=== PATIENT | female | born 1935 | race Caucasian/White ===

== ENCOUNTER → 2021-04-03 08:38 | Outpatient (CLI) | payer MEDICARE, MEDICAID, SELFPAY ==
--- NOTE | 2021-04-03 08:41 | DI.RAD.S_ITS ---
PROCEDURE: XR HIP W PEL IF DONE RT 2V INDICATIONS: right hip pain TECHNIQUE: AP pelvis with lateral view(s) of the right hip(s). COMPARISON: [facility], CR, XR LUMBAR SPINE 2 OR 3 VIEWS, 03/20/2020, 10:01. FINDINGS: Bones: No fractures or dislocations. Pelvic ring appears intact. No suspicious bony lesions. Moderate-severe degenerative changes of the right hip joint. There is moderate joint space narrowing. Soft tissues: The visualized bowel gas pattern is normal. No suspicious soft tissue calcifications. Stable calcifications in the left pelvis. IMPRESSION: Right hip without acute fracture or dislocation. 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 Dictated by: Jason Gonzalez M.D. on 04/03/2021 at 12:26 Approved by: Jason Gonzalez M.D. on 04/03/2021 at 12:28
[2021-04-03 09:40] LABS: Add Manual Diff / Slide Review NO; Basophils Absolute Auto 0 /uL (0-100); Basophils Percent Auto 0.7 % (0-2); Eosinophils Absolute Auto 100 /uL (0-450); Eosinophils Percent Auto 1.2 % (2-4); Hematocrit 37.4 % (36-46); Hemoglobin 12.1 g/dL (12.0-16.0); Lymphocytes Absolute Auto 1100 /uL (1100-4500); Lymphocytes Percent Auto 21.4 % (25-40); Mean Corpuscular HGB Conc 32.4 % (30-36); Mean Corpuscular Hemoglobin 26.9 PG (26-34); Mean Corpuscular Volume 82.9 fL (80-100); Monocytes Absolute Auto 500 /uL (0-900); Monocytes Percent Auto 8.6 % (3-14); Neutrophils Absolute Auto 3600 /uL (1500-7000); Neutrophils Percent Auto 68.1 % (50-75); Platelet Count 244 X10^3/uL (150-400); Red Blood Cell Count 4.51 X10^6/uL (4.0-5.2); Red Cell Distribution Width 14.7 % (11.6-14.8); White Blood Cell Count 5.2 X10^3/uL (4.5-11.0)
[2021-04-03 10:00] LABS: Appearance Urine UA CLEAR; Bilirubin Urine UA NEGATIVE (NEGATIVE); Color Urine UA YELLOW; Glucose Urine UA TRACE g/dL (Negative); Ketones Urine UA NEGATIVE (NEGATIVE); Leukocyte Esterase Urine UA NEGATIVE (NEGATIVE); Nitrite Urine UA NEGATIVE (Negative); Occult Blood Urine UA 3+ (Negative); Protein Urine UA NEGATIVE (Negative); Specific Gravity Urine UA 1.015 (1.000-1.035); Urobilinogen Urine UA 0.2 E.U./dL (0.2)
[2021-04-03 10:07] LABS: pH Urine UA 5.5 (4.5-8.0)
[2021-04-03 10:16] LABS: Alanine Aminotransferase 19 IU/L (<35); Albumin 4.6 g/dL (3.5-5.0); Albumin Globulin Ratio 1.4 (1.0-2.8); Alkaline Phosphatase 88 U/L (38-126); Aspartate Aminotransferase 36 IU/L (14-36); BUN Creatinine Ratio 17.7 (6-22); Bilirubin Total 1.2 mg/dL (0.2-1.3); Blood Urea Nitrogen 14 mg/dL (7-17); Carbon Dioxide 32 mmol/L (22-32); Chloride 101 mmol/L (98-107); Estimated Glomerular Filt Rate > 60.0 mL/min (>60); Globulin 3.4 g/dL (1.7-4.1); Glucose 111 mg/dL (80-110); HEMOLYSIS < 15 (0-50); Potassium 4.5 mmol/L (3.4-5.1); Sodium 140 mmol/L (137-145)
[2021-04-03 10:23] LABS: Bacteria Urine Few (2-10); Culture Indicated Urine Cult Not Indicated; RBC Urine 1-5/HPF (0-5/HPF); Squamous Epithelial Cell Urine 5-10 /HPF (0-5/HPF); WBC Urine 1-5/HPF (0-5/HPF)
[2021-04-03 10:34] LABS: Vitamin D 25 Hydroxy (D3) 77.9 ng/mL (30.0-100.0)
[2021-04-03 10:49] LABS: TSH w/ Reflex to FT4 1.98 uIU/mL (0.47-4.68)
[2021-04-03 11:22] LABS: Folate 6.6 ng/mL (2.76-20.0); Vitamin B12 447 pg/mL (239-931)
== END ==
PROVIDERS: PCP Registered Nurse; Referring Provider Registered Nurse; Visit Provider Registered Nurse
DX: E55.9 Vitamin D deficiency, unspecified (principal); R32 Unspecified urinary incontinence; G62.9 Polyneuropathy, unspecified
CPT/HCPCS: 36415; 73502; 80053; 81003; 81015; 82306; 82607; 82746; 84443; 85025

== ENCOUNTER → 2021-04-04 15:23 | Outpatient (CLI) | payer MEDICARE, MEDICAID, SELFPAY | PROVIDERS: PCP Registered Nurse; Referring Provider Registered Nurse; Visit Provider Registered Nurse | DX: R32 Unspecified urinary incontinence (principal) | CPT/HCPCS: 87086 ==

== ENCOUNTER 2021-05-12 07:30 | Outpatient (RCR) | payer MEDICARE, MEDICAID, SELFPAY ==
--- NOTE | 2021-04-14 14:21 | PT.OIE ---
Current Diagnoses Pain in right hip (04/16/21) Other abnormalities of gait and mobility (04/16/21) History of falling (04/16/21) Past Medical History (Last Reviewed 03/28/21 @ 17:39 by GYPSY Mc) Balance problem Right hip pain Visit Care Team Role Provider Type GYPSY Mc Attending Provider Advanced Shim Plug Cutter Primary Care Provider Referring Provider Specialty: Medical Address: [address] [place] [address], [facility] Email: [email or web address] Physical Therapy Initial Evaluation PT-OP-A Visit Information Start: 04/14/21 07:57 Freq: Status: Active Protocol: Document 04/14/21 13:45 AMB (Rec: 04/14/21 16:07 AMB [email or web address]) Out-Patient Physical Therapy Visit Information Visit Information Visit Type Initial Evaluation Visit Start Time 13:45 Visit Stop Time 14:30 Total Visit Minutes 45 Visit Number 1 PT-OP-B Current Condition Start: 04/14/21 07:57 Freq: Status: Active Protocol: Document 04/14/21 13:50 AMB (Rec: 04/14/21 14:04 AMB [id number]) Current Condition History of Current Condition Onset Date 4 years ago Current Complaints Difficulty with balance/falls History of Current Condition Sarah reports episodes of feeling off balance associated with movement. States she has peripheral neuropathy, has been depressed for 4 years and didn't move much during that time. Feels off balance multiple times per day, worse with activity, not spinning. Tends to lose balance backwards or laterally. 3 falls in the last 6 months. Has tripped over her toes. R hip painful, L leg feels heavier- neuropathy feels subjectively worse on her left side. Treatment Goals Patient/Caregiver Goals Feel more balanced Prior Functional Status Baseline Function- ADL's Independent Baseline Function- Mobility Independent Personal Factors Other Personal Factors That May Effect R ankle fx 2013, hx depression Therapy/Recovery , hip arthritis PT-OP-E Functional Tests Start: 04/14/21 07:57 Freq: Status: Active Protocol: Document 04/14/21 16:13 AMB (Rec: 04/14/21 16:16 AMB [email or web address]) Functional Tests Dynamic Gait Index (DGI) Score 17 DGI Impairment Rating 20 to <40% Impaired (Score 15- 19) Five Times Sit to Stand Test Score 18 seconds Comments no UE PT-OP-G Mobility & Gait Start: 04/14/21 07:57 Freq: Status: Active Protocol: Document 04/14/21 16:13 AMB (Rec: 04/14/21 16:16 AMB [email or web address]) OP Gait Assessment Comments Gait Comments Sarah can veer off to the side, significantly worse with walking with horizontal head turns PT-OP-J Posture/Palpation/Skin Start: 04/14/21 07:57 Freq: Status: Active Protocol: Document 04/14/21 13:45 AMB (Rec: 04/16/21 11:54 AMB [email or web address]) Posture Evaluation Comments Posture Comments Increased thoracic kyphosis and forward head PT-OP-K Range of Motion Start: 04/14/21 07:57 Freq: Status: Active Protocol: Document 04/14/21 13:45 AMB (Rec: 04/16/21 11:54 AMB [email or web address]) Hip Goniometric Range of Motion Hip ROM Limitations Comments Limited IR and ER, good hip flexion PT-OP-M Strength Start: 04/14/21 07:57 Freq: Status: Active Protocol: Document 04/14/21 13:45 AMB (Rec: 04/16/21 11:54 AMB [email or web address]) Hip Strength Hip Manual Muscle Testing Right Flexion (L2) 4+ Good+ Extension (S1) 4+ Good+ Abduction 4+ Good+ Left Flexion (L2) 4+ Good+ Extension (S1) 4+ Good+ Abduction 4+ Good+ Knee Strength Knee Manual Muscle Testing Right Flexion (S2) 5 Normal Left Flexion (S2) 5 Normal Ankle/Foot Strength Ankle and Foot Manual Muscle Testing Right Dorsiflexion (L4) 4 Good Plantarflexion (S1) 4 Good Left Dorsiflexion (L4) 4 Good Plantarflexion (S1) 4 Good PT-OP-T Assessment and Plan Start: 04/14/21 07:57 Freq: Status: Active Protocol: Document 04/14/21 13:45 AMB (Rec: 04/16/21 12:01 AMB [email or web address]) Physical Therapy Assessment Rehab Potential Rehabilitation Potential Good Evaluation Complexity Number of Personal Factors/Comorbidities 1-2 Number of Body Systems Impaired 3 Clinical Presentation at Evaluation Evolving Goals Three Impairment Pain Short Term Goal (STG) Sarah will be independent with a HEP to improve her balance and decrease her pain. STG Duration 4 weeks Two Impairment gait Short Term Goal (STG) Sarah will ambulate for 6 minutes without LOB without AD over smooth surfaces. STG Duration 4 weeks Machined Parts Metal Sprayer Goal (LTG) Sarah will ambulate with head turns without veering. LTG Duration 6 weeks One Impairment balance Short Term Goal (STG) Sarah will improve her DGI score to 20/24 or more. STG Duration 4 weeks Assessment Summary Assessment Sarah attends physical therapy with concern over feeling off balance but not dizzy. She does have a history of 3 falls in the last 6 months. She also has R hip pain, especially with rolling over in bed and is concerned about her ability to perform a floor transfer. She had weakness and decreased proprioception at the ankle and foot, and veering and loss of balance with walking with horizontal head turns. Her DGI score and history of falls put her in a fall risk category. She will benefit from physcical therapy to improve her overall conditioning after being deconditioned for years, and decrease her fall risk. Physical Therapy Plan Frequency and Duration Frequency of Treatment 2x/Week Duration of Treatment 6 weeks Plan of Care Start Date 04/14/21 Plan of Care End Date 05/26/21 Therapeutic Interventions Therapeutic Interventions Gait Training,Home Exercise Program,Manual Therapy, Neuromuscular Re-education, Self-Care/Home Management, Therapeutic Activities, Therapeutic Exercises Next Visit Focus/Plan Next Note Type Treatment Note Next Visit Plan ankle strengthening, core stability, floor transfer training, gait training, further assess R hip's role in gait
--- NOTE | 2021-04-14 14:22 | PT.OPPOC ---
Addendum entered and electronically signed by Libra Beck, PT 04/16/21 14:22: Send POC Original Note: Physical, Occupational & Speech Therapy At [facility] Current Diagnoses Pain in right hip (04/16/21) Other abnormalities of gait and mobility (04/16/21) History of falling (04/16/21) Visit Care Team Role Provider Type GYPSY Mc Attending Provider Advanced Manager Nicu Primary Care Provider Referring Provider Specialty: Medical Address: [address] [place] [address] Email: [email or web address] Plan Of Care PT-OP-T Assessment and Plan Start: 04/14/21 07:57 Freq: Status: Active Protocol: Document 04/14/21 13:45 AMB (Rec: 04/16/21 12:01 AMB [email or web address]) Physical Therapy Assessment Rehab Potential Rehabilitation Potential Good Evaluation Complexity Number of Personal Factors/Comorbidities 1-2 Number of Body Systems Impaired 3 Clinical Presentation at Evaluation Evolving Goals Three Impairment Pain Short Term Goal (STG) Sarah will be independent with a HEP to improve her balance and decrease her pain. STG Duration 4 weeks Two Impairment gait Short Term Goal (STG) Sarah will ambulate for 6 minutes without LOB without AD over smooth surfaces. STG Duration 4 weeks Resistance Machine Welder Setter Goal (LTG) Sarah will ambulate with head turns without veering. LTG Duration 6 weeks One Impairment balance Short Term Goal (STG) Sarah will improve her DGI score to 20/24 or more. STG Duration 4 weeks Assessment Summary Assessment Sarah attends physical therapy with concern over feeling off balance but not dizzy. She does have a history of 3 falls in the last 6 months. She also has R hip pain, especially with rolling over in bed and is concerned about her ability to perform a floor transfer. She had weakness and decreased proprioception at the ankle and foot, and veering and loss of balance with walking with horizontal head turns. Her DGI score and history of falls put her in a fall risk category. She will benefit from physcical therapy to improve her overall conditioning after being deconditioned for years, and decrease her fall risk. Physical Therapy Plan Frequency and Duration Frequency of Treatment 2x/Week Duration of Treatment 6 weeks Plan of Care Start Date 04/14/21 Plan of Care End Date 05/26/21 Therapeutic Interventions Therapeutic Interventions Gait Training,Home Exercise Program,Manual Therapy, Neuromuscular Re-education, Self-Care/Home Management, Therapeutic Activities, Therapeutic Exercises Next Visit Focus/Plan Next Note Type Treatment Note Next Visit Plan ankle strengthening, core stability, floor transfer training, gait training, further assess R hip's role in gait Plan of Care Dates Plan of Care Start Date 04/14/21 Plan of Care End Date 05/26/21 Electronically Signed by: Libra Beck, PT 04/16/21 [id number] Please Sign and Return: I have reviewed this Plan of Care and certify that the skilled therapy services above are required to meet the patient?s needs. Physician Signature Date Printed Name and Credentials Clinical Instructor Signature Printed Name and Credentials
--- NOTE | 2021-04-16 14:55 | PT.OTN ---
Current Diagnoses Pain in right hip (04/16/21) Other abnormalities of gait and mobility (04/16/21) History of falling (04/16/21) Physical Therapy Treatment Note PT-OP-A Visit Information Start: 04/14/21 07:57 Freq: Status: Active Protocol: Document 04/16/21 11:15 AMB (Rec: 04/16/21 14:55 AMB [email or web address]) Out-Patient Physical Therapy Visit Information Visit Information Visit Type Treatment Note Visit Start Time 11:15 Visit Stop Time 12:00 Total Visit Minutes 45 Visit Number 2 PT-OP-B Current Condition Start: 04/14/21 07:57 Freq: Status: Active Protocol: Document 04/14/21 13:50 AMB (Rec: 04/14/21 14:04 AMB [id number]) Current Condition History of Current Condition Onset Date 4 years ago Current Complaints Difficulty with balance/falls History of Current Condition Sarah reports episodes of feeling off balance associated with movement. States she has peripheral neuropathy, has been depressed for 4 years and didn't move much during that time. Feels off balance multiple times per day, worse with activity, not spinning. Tends to lose balance backwards or laterally. 3 falls in the last 6 months. Has tripped over her toes. R hip painful, L leg feels heavier- neuropathy feels subjectively worse on her left side. Treatment Goals Patient/Caregiver Goals Feel more balanced Prior Functional Status Baseline Function- ADL's Independent Baseline Function- Mobility Independent Personal Factors Other Personal Factors That May Effect R ankle fx 2013, hx depression Therapy/Recovery , hip arthritis PT-OP-C Subjective Start: 04/14/21 07:57 Freq: Status: Active Protocol: Document 04/16/21 11:15 AMB (Rec: 04/16/21 14:55 AMB [email or web address]) OP-PT Subjective Patient Comments Patient Comments Pt was tired after her evaluation, no specific instances of being off balance since eval. PT-OP-E Functional Tests Start: 04/14/21 07:57 Freq: Status: Active Protocol: Document 04/14/21 16:13 AMB (Rec: 04/14/21 16:16 AMB [email or web address]) Functional Tests Dynamic Gait Index (DGI) Score 17 DGI Impairment Rating 20 to <40% Impaired (Score 15- 19) Five Times Sit to Stand Test Score 18 seconds Comments no UE PT-OP-G Mobility & Gait Start: 04/14/21 07:57 Freq: Status: Active Protocol: Document 04/14/21 16:13 AMB (Rec: 04/14/21 16:16 AMB [email or web address]) OP Gait Assessment Comments Gait Comments Sarah can veer off to the side, significantly worse with walking with horizontal head turns PT-OP-J Posture/Palpation/Skin Start: 04/14/21 07:57 Freq: Status: Active Protocol: Document 04/14/21 13:45 AMB (Rec: 04/16/21 11:54 AMB [email or web address]) Posture Evaluation Comments Posture Comments Increased thoracic kyphosis and forward head PT-OP-K Range of Motion Start: 04/14/21 07:57 Freq: Status: Active Protocol: Document 04/14/21 13:45 AMB (Rec: 04/16/21 11:54 AMB [email or web address]) Hip Goniometric Range of Motion Hip ROM Limitations Comments Limited IR and ER, good hip flexion PT-OP-M Strength Start: 04/14/21 07:57 Freq: Status: Active Protocol: Document 04/14/21 13:45 AMB (Rec: 04/16/21 11:54 AMB [email or web address]) Hip Strength Hip Manual Muscle Testing Right Flexion (L2) 4+ Good+ Extension (S1) 4+ Good+ Abduction 4+ Good+ Left Flexion (L2) 4+ Good+ Extension (S1) 4+ Good+ Abduction 4+ Good+ Knee Strength Knee Manual Muscle Testing Right Flexion (S2) 5 Normal Left Flexion (S2) 5 Normal Ankle/Foot Strength Ankle and Foot Manual Muscle Testing Right Dorsiflexion (L4) 4 Good Plantarflexion (S1) 4 Good Left Dorsiflexion (L4) 4 Good Plantarflexion (S1) 4 Good PT-OP-Q Treatments Start: 04/14/21 07:57 Freq: Status: Active Protocol: Document 04/16/21 11:15 AMB (Rec: 04/16/21 14:55 AMB [email or web address]) Therapeutic Exercises Sidelying Exercises clamshell Reps/Minutes 2x10 Standing Exercises 2 Standing Exercise Name sit to stand Reps/Minutes 2x5 Comments no Ues 1 Standing Exercise Name standing row t band Resistance #2 Reps/Minutes 2x10 Neuro Re-Education Treatment Balance Activities stride stance Surface firm Comments cues for weightbearing through heel and base of toes PT-OP-T Assessment and Plan Start: 04/14/21 07:57 Freq: Status: Active Protocol: Document 04/16/21 11:15 AMB (Rec: 04/16/21 14:55 AMB [email or web address]) Physical Therapy Assessment Assessment Summary Assessment Further discussed floor transfer, R hip is painful when rolling onto the left side and has limited rotation. Posture is playing a role in being off balance- pt had difficulty maintainging good posture while performing t band rows. Physical Therapy Plan Next Visit Focus/Plan Next Note Type Treatment Note Next Visit Plan ankle strengthening, core stability, floor transfer training, gait training, further assess R hip's role in gait
--- NOTE | 2021-04-23 12:00 | PT.OTN ---
Current Diagnoses Pain in right hip (04/23/21) Other abnormalities of gait and mobility (04/23/21) History of falling (04/23/21) Physical Therapy Treatment Note PT-OP-A Visit Information Start: 04/14/21 07:57 Freq: Status: Active Protocol: Document 04/23/21 07:33 AMB (Rec: 04/23/21 08:36 AMB [id number]) Out-Patient Physical Therapy Visit Information Visit Information Visit Type Treatment Note Visit Start Time 07:30 Visit Stop Time 08:15 Total Visit Minutes 45 Visit Number 3 PT-OP-B Current Condition Start: 04/14/21 07:57 Freq: Status: Active Protocol: Document 04/14/21 13:50 AMB (Rec: 04/14/21 14:04 AMB [id number]) Current Condition History of Current Condition Onset Date 4 years ago Current Complaints Difficulty with balance/falls History of Current Condition Sarah reports episodes of feeling off balance associated with movement. States she has peripheral neuropathy, has been depressed for 4 years and didn't move much during that time. Feels off balance multiple times per day, worse with activity, not spinning. Tends to lose balance backwards or laterally. 3 falls in the last 6 months. Has tripped over her toes. R hip painful, L leg feels heavier- neuropathy feels subjectively worse on her left side. Treatment Goals Patient/Caregiver Goals Feel more balanced Prior Functional Status Baseline Function- ADL's Independent Baseline Function- Mobility Independent Personal Factors Other Personal Factors That May Effect R ankle fx 2014, hx depression Therapy/Recovery , hip arthritis PT-OP-C Subjective Start: 04/14/21 07:57 Freq: Status: Active Protocol: Document 04/16/21 11:15 AMB (Rec: 04/16/21 14:55 AMB [email or web address]) OP-PT Subjective Patient Comments Patient Comments Pt was tired after her evaluation, no specific instances of being off balance since eval. PT-OP-E Functional Tests Start: 04/14/21 07:57 Freq: Status: Active Protocol: Document 04/14/21 16:13 AMB (Rec: 04/14/21 16:16 AMB [email or web address]) Functional Tests Dynamic Gait Index (DGI) Score 17 DGI Impairment Rating 20 to <40% Impaired (Score 15- 19) Five Times Sit to Stand Test Score 18 seconds Comments no UE PT-OP-G Mobility & Gait Start: 04/14/21 07:57 Freq: Status: Active Protocol: Document 04/14/21 16:13 AMB (Rec: 04/14/21 16:16 AMB [email or web address]) OP Gait Assessment Comments Gait Comments Sarah can veer off to the side, significantly worse with walking with horizontal head turns PT-OP-J Posture/Palpation/Skin Start: 04/14/21 07:57 Freq: Status: Active Protocol: Document 04/14/21 13:45 AMB (Rec: 04/16/21 11:54 AMB [email or web address]) Posture Evaluation Comments Posture Comments Increased thoracic kyphosis and forward head PT-OP-K Range of Motion Start: 04/14/21 07:57 Freq: Status: Active Protocol: Document 04/14/21 13:45 AMB (Rec: 04/16/21 11:54 AMB [email or web address]) Hip Goniometric Range of Motion Hip ROM Limitations Comments Limited IR and ER, good hip flexion PT-OP-M Strength Start: 04/14/21 07:57 Freq: Status: Active Protocol: Document 04/14/21 13:45 AMB (Rec: 04/16/21 11:54 AMB [email or web address]) Hip Strength Hip Manual Muscle Testing Right Flexion (L2) 4+ Good+ Extension (S1) 4+ Good+ Abduction 4+ Good+ Left Flexion (L2) 4+ Good+ Extension (S1) 4+ Good+ Abduction 4+ Good+ Knee Strength Knee Manual Muscle Testing Right Flexion (S2) 5 Normal Left Flexion (S2) 5 Normal Ankle/Foot Strength Ankle and Foot Manual Muscle Testing Right Dorsiflexion (L4) 4 Good Plantarflexion (S1) 4 Good Left Dorsiflexion (L4) 4 Good Plantarflexion (S1) 4 Good PT-OP-Q Treatments Start: 04/14/21 07:57 Freq: Status: Active Protocol: Document 04/23/21 07:30 AMB (Rec: 04/24/21 11:59 AMB [email or web address]) Therapeutic Exercises Sidelying Exercises clamshell Reps/Minutes 2x10 Standing Exercises 3 Standing Exercise Name hip flexor stretch Reps/Minutes 30x2 2 Standing Exercise Name sit to stand Reps/Minutes 2x5 Comments no Ues 1 Standing Exercise Name standing row t band Resistance #2 Reps/Minutes 2x10 Neuro Re-Education Treatment Balance Activities stride stance Surface firm Comments cues for weightbearing through heel and base of toes- tried to add head turns but that was too much PT-OP-T Assessment and Plan Start: 04/14/21 07:57 Freq: Status: Active Protocol: Document 04/23/21 07:30 AMB (Rec: 04/23/21 09:46 AMB [email or web address]) Physical Therapy Assessment Goals Three Impairment Pain Short Term Goal (STG) Sarah will be independent with a HEP to improve her balance and decrease her pain. STG Duration 4 weeks Two Impairment gait Short Term Goal (STG) Sarah will ambulate for 6 minutes without LOB without AD over smooth surfaces. STG Duration 4 weeks Ell Tutor Goal (LTG) Sarah will ambulate with head turns without veering. LTG Duration 6 weeks One Impairment balance Short Term Goal (STG) Sarah will improve her DGI score to 20/24 or more. STG Duration 4 weeks Assessment Summary Assessment Sarah did well with written HEP . She continues to state that the worst of the balance issues are when she is doing yardwork with her head down, bent over. Encouraged her to avoid this position and to increase her daily walking. Extensive education on exercise program today. Physical Therapy Plan Next Visit Focus/Plan Next Note Type Treatment Note Next Visit Plan ankle strengthening, core stability, floor transfer training, gait training, further assess R hip's role in gait
--- NOTE | 2021-04-25 11:42 | PT.OTN ---
Current Diagnoses Pain in right hip (04/25/21) Other abnormalities of gait and mobility (04/25/21) History of falling (04/25/21) Physical Therapy Treatment Note PT-OP-A Visit Information Start: 04/14/21 07:57 Freq: Status: Active Protocol: Document 04/25/21 09:45 AMB (Rec: 04/25/21 10:31 AMB [id number]) Out-Patient Physical Therapy Visit Information Visit Information Visit Type Treatment Note Visit Start Time 09:45 Visit Stop Time 10:30 Total Visit Minutes 45 Visit Number 4 PT-OP-B Current Condition Start: 04/14/21 07:57 Freq: Status: Active Protocol: Document 04/14/21 13:50 AMB (Rec: 04/14/21 14:04 AMB [id number]) Current Condition History of Current Condition Onset Date 4 years ago Current Complaints Difficulty with balance/falls History of Current Condition Sarah reports episodes of feeling off balance associated with movement. States she has peripheral neuropathy, has been depressed for 4 years and didn't move much during that time. Feels off balance multiple times per day, worse with activity, not spinning. Tends to lose balance backwards or laterally. 3 falls in the last 6 months. Has tripped over her toes. R hip painful, L leg feels heavier- neuropathy feels subjectively worse on her left side. Treatment Goals Patient/Caregiver Goals Feel more balanced Prior Functional Status Baseline Function- ADL's Independent Baseline Function- Mobility Independent Personal Factors Other Personal Factors That May Effect R ankle fx 2014, hx depression Therapy/Recovery , hip arthritis PT-OP-C Subjective Start: 04/14/21 07:57 Freq: Status: Active Protocol: Document 04/25/21 09:45 AMB (Rec: 04/25/21 10:31 AMB [id number]) OP-PT Subjective Patient Comments Patient Comments Pt has been doing her exercises, reports they are going fine. PT-OP-E Functional Tests Start: 04/14/21 07:57 Freq: Status: Active Protocol: Document 04/14/21 16:13 AMB (Rec: 04/14/21 16:16 AMB [email or web address]) Functional Tests Dynamic Gait Index (DGI) Score 17 DGI Impairment Rating 20 to <40% Impaired (Score 15- 19) Five Times Sit to Stand Test Score 18 seconds Comments no UE PT-OP-G Mobility & Gait Start: 04/14/21 07:57 Freq: Status: Active Protocol: Document 04/14/21 16:13 AMB (Rec: 04/14/21 16:16 AMB [email or web address]) OP Gait Assessment Comments Gait Comments Sarah can veer off to the side, significantly worse with walking with horizontal head turns PT-OP-J Posture/Palpation/Skin Start: 04/14/21 07:57 Freq: Status: Active Protocol: Document 04/14/21 13:45 AMB (Rec: 04/16/21 11:54 AMB [email or web address]) Posture Evaluation Comments Posture Comments Increased thoracic kyphosis and forward head PT-OP-K Range of Motion Start: 04/14/21 07:57 Freq: Status: Active Protocol: Document 04/14/21 13:45 AMB (Rec: 04/16/21 11:54 AMB [email or web address]) Hip Goniometric Range of Motion Hip ROM Limitations Comments Limited IR and ER, good hip flexion PT-OP-M Strength Start: 04/14/21 07:57 Freq: Status: Active Protocol: Document 04/14/21 13:45 AMB (Rec: 04/16/21 11:54 AMB [email or web address]) Hip Strength Hip Manual Muscle Testing Right Flexion (L2) 4+ Good+ Extension (S1) 4+ Good+ Abduction 4+ Good+ Left Flexion (L2) 4+ Good+ Extension (S1) 4+ Good+ Abduction 4+ Good+ Knee Strength Knee Manual Muscle Testing Right Flexion (S2) 5 Normal Left Flexion (S2) 5 Normal Ankle/Foot Strength Ankle and Foot Manual Muscle Testing Right Dorsiflexion (L4) 4 Good Plantarflexion (S1) 4 Good Left Dorsiflexion (L4) 4 Good Plantarflexion (S1) 4 Good PT-OP-Q Treatments Start: 04/14/21 07:57 Freq: Status: Active Protocol: Document 04/25/21 09:45 AMB (Rec: 04/25/21 11:42 AMB [id number]) Therapeutic Exercises Sidelying Exercises clamshell Reps/Minutes 2x10 Standing Exercises doorway pec stretch Reps/Minutes 30x2 3 Standing Exercise Name hip flexor stretch Reps/Minutes 30x2 2 Standing Exercise Name sit to stand Reps/Minutes 2x5 Comments no Ues 1 Standing Exercise Name standing row t band Resistance #2 Reps/Minutes 2x10 Neuro Re-Education Treatment Balance Activities stride stance Surface firm Comments cues for weightbearing through heel and base of toes- PT-OP-T Assessment and Plan Start: 04/14/21 07:57 Freq: Status: Active Protocol: Document 04/25/21 09:45 AMB (Rec: 04/25/21 10:31 AMB [id number]) Physical Therapy Assessment Assessment Summary Assessment See pt in 2 weeks per her request to give her more time to work on her exercises, educated in importance of cardiovascular exercise, pt is ok with the idea of walking with her cell phone and walking stick. Physical Therapy Plan Next Visit Focus/Plan Next Note Type Treatment Note Next Visit Plan ankle strengthening, core stability, floor transfer training, gait training, further assess R hip's role in gait
--- NOTE | 2021-05-12 08:45 | PT.OTN ---
Current Diagnoses Pain in right hip (05/12/21) Other abnormalities of gait and mobility (05/12/21) History of falling (05/12/21) Physical Therapy Treatment Note PT-OP-A Visit Information Start: 04/14/21 07:57 Freq: Status: Active Protocol: Document 05/12/21 07:30 AMB (Rec: 05/12/21 08:24 AMB [id number]) Out-Patient Physical Therapy Visit Information Visit Information Visit Type Treatment Note Visit Start Time 07:30 Visit Stop Time 08:15 Total Visit Minutes 45 Visit Number 5 PT-OP-B Current Condition Start: 04/14/21 07:57 Freq: Status: Active Protocol: Document 04/14/21 13:50 AMB (Rec: 04/14/21 14:04 AMB [id number]) Current Condition History of Current Condition Onset Date 4 years ago Current Complaints Difficulty with balance/falls History of Current Condition Sarah reports episodes of feeling off balance associated with movement. States she has peripheral neuropathy, has been depressed for 4 years and didn't move much during that time. Feels off balance multiple times per day, worse with activity, not spinning. Tends to lose balance backwards or laterally. 3 falls in the last 6 months. Has tripped over her toes. R hip painful, L leg feels heavier- neuropathy feels subjectively worse on her left side. Treatment Goals Patient/Caregiver Goals Feel more balanced Prior Functional Status Baseline Function- ADL's Independent Baseline Function- Mobility Independent Personal Factors Other Personal Factors That May Effect R ankle fx 2014, hx depression Therapy/Recovery , hip arthritis PT-OP-C Subjective Start: 04/14/21 07:57 Freq: Status: Active Protocol: Document 05/12/21 08:15 AMB (Rec: 05/12/21 08:30 AMB [email or web address]) OP-PT Subjective Patient Comments Patient Comments Pt reports she stopped doing hip flexor stretch and clamshell because one of them she's not sure which increased her hip pain. PT-OP-E Functional Tests Start: 04/14/21 07:57 Freq: Status: Active Protocol: Document 04/14/21 16:13 AMB (Rec: 04/14/21 16:16 AMB [email or web address]) Functional Tests Dynamic Gait Index (DGI) Score 17 DGI Impairment Rating 20 to <40% Impaired (Score 15- 19) Five Times Sit to Stand Test Score 18 seconds Comments no UE PT-OP-G Mobility & Gait Start: 04/14/21 07:57 Freq: Status: Active Protocol: Document 04/14/21 16:13 AMB (Rec: 04/14/21 16:16 AMB [email or web address]) OP Gait Assessment Comments Gait Comments Sarah can veer off to the side, significantly worse with walking with horizontal head turns PT-OP-J Posture/Palpation/Skin Start: 04/14/21 07:57 Freq: Status: Active Protocol: Document 04/14/21 13:45 AMB (Rec: 04/16/21 11:54 AMB [email or web address]) Posture Evaluation Comments Posture Comments Increased thoracic kyphosis and forward head PT-OP-K Range of Motion Start: 04/14/21 07:57 Freq: Status: Active Protocol: Document 04/14/21 13:45 AMB (Rec: 04/16/21 11:54 AMB [email or web address]) Hip Goniometric Range of Motion Hip ROM Limitations Comments Limited IR and ER, good hip flexion PT-OP-M Strength Start: 04/14/21 07:57 Freq: Status: Active Protocol: Document 04/14/21 13:45 AMB (Rec: 04/16/21 11:54 AMB [email or web address]) Hip Strength Hip Manual Muscle Testing Right Flexion (L2) 4+ Good+ Extension (S1) 4+ Good+ Abduction 4+ Good+ Left Flexion (L2) 4+ Good+ Extension (S1) 4+ Good+ Abduction 4+ Good+ Knee Strength Knee Manual Muscle Testing Right Flexion (S2) 5 Normal Left Flexion (S2) 5 Normal Ankle/Foot Strength Ankle and Foot Manual Muscle Testing Right Dorsiflexion (L4) 4 Good Plantarflexion (S1) 4 Good Left Dorsiflexion (L4) 4 Good Plantarflexion (S1) 4 Good PT-OP-Q Treatments Start: 04/14/21 07:57 Freq: Status: Active Protocol: Document 05/12/21 07:30 AMB (Rec: 05/12/21 08:30 AMB [email or web address]) Therapeutic Exercises Sitting Exercises 1 Sitting Exercise Name hip abd/er Resistance #2 t band Reps/Minutes 2x10 Standing Exercises doorway pec stretch Reps/Minutes 30x2 3 Standing Exercise Name hip flexor stretch Reps/Minutes 30x2 1 Standing Exercise Name standing row t band Resistance #2 Reps/Minutes 2x10 PT-OP-T Assessment and Plan Start: 04/14/21 07:57 Freq: Status: Active Protocol: Document 05/12/21 07:30 AMB (Rec: 05/12/21 08:24 AMB [id number]) Physical Therapy Assessment Goals Three Impairment Pain Short Term Goal (STG) Sarah will be independent with a HEP to improve her balance and decrease her pain. STG Duration MET Two Impairment gait Short Term Goal (STG) Sarah will ambulate for 6 minutes without LOB without AD over smooth surfaces. STG Duration 4 weeks [employer] Goal (LTG) Sarah will ambulate with head turns without veering. LTG Duration 6 weeks One Impairment balance Short Term Goal (STG) Sarah will improve her DGI score to 20/24 or more. STG Duration 4 weeks Assessment Summary Assessment Pt overdid her hip flexor stretch and had pain from it, so provided alternatives today so that she can continue to stretch her hips without flaring up her pain. She feels she has met her goals of understanding what is going on with her pain and balance at this point. Does have a cane and is willing to use it, discussed neuropathy. Encouraged she consider silver sneakers and discussed other options for her to get some amount of cardio exercise. Pt would like to discharge now and work on her exercises independently at this time.
== END 2021-05-30 14:26 ==
LOC: PHYS 07:30
PROVIDERS: PCP Registered Nurse; Referring Provider Registered Nurse; Visit Provider Registered Nurse
DX: R26.89 Other abnormalities of gait and mobility (principal); M25.551 Pain in right hip; Z91.81 History of falling
CPT/HCPCS: 97110; 97112; 97162

== ENCOUNTER → 2021-06-09 14:07 | Outpatient (CLI) | payer MEDICARE, MEDICAID, SELFPAY ==
--- NOTE | 2021-06-09 14:08 | DI.RAD.S_ITS ---
PROCEDURE: XR TOE LT MIN 2V INDICATIONS: toe pain TECHNIQUE: 3 views of the toe(s) acquired. COMPARISON: None. FINDINGS: Bones: No fractures or dislocations. No suspicious bony lesions. Soft tissues: No suspicious soft tissue densities. IMPRESSION: No acute osseous abnormality. Follow-up radiographs in 10-14 days could be considered. Dictated by: Kory Baker M.D. on 06/09/2021 at 14:48 Approved by: Kory Baker M.D. on 06/09/2021 at 14:50
== END ==
PROVIDERS: PCP Family Medicine; Referring Provider Registered Nurse Diabetes Educator; Visit Provider Registered Nurse Diabetes Educator
DX: M79.675 Pain in left toe(s) (principal)
CPT/HCPCS: 73660

== ENCOUNTER → 2021-08-20 09:01 | Outpatient (CLI) | payer MEDICARE, MEDICAID, SELFPAY ==
--- NOTE | 2021-08-20 09:03 | DI.RAD.S_ITS ---
PROCEDURE: XR FOOT LT MIN 3V INDICATIONS: foot pain TECHNIQUE: 3 views of the foot were acquired. COMPARISON: [facility], CR, XR TOE LT MIN 2V, 06/09/2021, 14:23. FINDINGS: Bones: No fractures or dislocations. No suspicious bony lesions. Soft tissues: No tibiotalar joint effusion. Achilles tendon appears normal. There is mild swelling at the lateral aspect of the foot. IMPRESSION: No fracture is identified. There is mild swelling at the lateral aspect of the foot. If clinically indicated three-phase bone scan or MRI could be considered for further evaluation. Dictated by: Kory Baker M.D. on 08/20/2021 at 9:58 Approved by: Kory Baker M.D. on 08/20/2021 at 10:02
== END ==
PROVIDERS: PCP Family Medicine; Referring Provider Family Medicine; Visit Provider Family Medicine
DX: M79.672 Pain in left foot (principal); G89.29 Other chronic pain; R79.89 Other specified abnormal findings of blood chemistry
CPT/HCPCS: 73630

== ENCOUNTER → 2022-04-07 07:38 | Outpatient (CLI) | payer MEDICARE, MEDICAID, SELFPAY ==
[2022-04-07 08:39] LABS: Add Manual Diff / Slide Review NO; Basophils Absolute Auto 0 /uL (0-100); Basophils Percent Auto 0.5 % (0-2); Eosinophils Absolute Auto 0 /uL (0-450); Eosinophils Percent Auto 0.7 % (2-4); Hematocrit 35.7 % (36-46); Lymphocytes Absolute Auto 800 /uL (1100-4500); Lymphocytes Percent Auto 22.5 % (25-40); Mean Corpuscular HGB Conc 33.6 % (30-36); Mean Corpuscular Hemoglobin 27.4 PG (26-34); Mean Corpuscular Volume 81.7 fL (80-100); Monocytes Absolute Auto 400 /uL (0-900); Monocytes Percent Auto 10.5 % (3-14); Neutrophils Absolute Auto 2200 /uL (1500-7000); Neutrophils Percent Auto 65.8 % (50-75); Platelet Count 206 X10^3/uL (150-400); Red Blood Cell Count 4.37 X10^6/uL (4.0-5.2); Red Cell Distribution Width 14.8 % (11.6-14.8); White Blood Cell Count 3.4 X10^3/uL (4.5-11.0)
[2022-04-07 09:22] LABS: Alanine Aminotransferase 21 IU/L (<35); Albumin 4.3 g/dL (3.5-5.0); Albumin Globulin Ratio 1.2 (1.0-2.8); Alkaline Phosphatase 73 U/L (38-126); Aspartate Aminotransferase 36 IU/L (14-36); Bilirubin Total 1.2 mg/dL (0.2-1.3); Blood Urea Nitrogen 19 mg/dL (7-17); Calcium 9.4 mg/dL (8.4-10.2); Carbon Dioxide 28 mmol/L (22-32); Chloride 104 mmol/L (98-107); Cholesterol 171 mg/dL (140-199); Estimated Glomerular Filt Rate > 60 mL/min (>60); Globulin 3.5 g/dL (1.7-4.1); Glucose 92 mg/dL (80-110); HDL Cholesterol 91 mg/dL (40-60); HEMOLYSIS < 15 (0-50); LDL Cholesterol Calculated 72 mg/dL (<100); Potassium 4.5 mmol/L (3.4-5.1); Sodium 139 mmol/L (137-145); Total Protein 7.8 g/dL (6.3-8.2); Triglycerides 41 mg/dL (35-150)
[2022-04-07 09:35] LABS: Vitamin D 25 Hydroxy (D3) 89.6 ng/mL (30.0-100.0)
[2022-04-07 09:46] LABS: TSH w/ Reflex to FT4 1.09 uIU/mL (0.47-4.68)
[2022-04-07 10:07] LABS: Vitamin B12 643 pg/mL (239-931)
== END ==
PROVIDERS: PCP Family Medicine; Referring Provider Family Medicine; Visit Provider Family Medicine
DX: E55.9 Vitamin D deficiency, unspecified (principal); F32.9 Major depressive disorder, single episode, unspecified; G62.9 Polyneuropathy, unspecified; R53.81 Other malaise
CPT/HCPCS: 36415; 80053; 80061; 82306; 82607; 84443; 85025

== ENCOUNTER → 2022-08-17 09:58 | Outpatient (CLI) | payer MEDICARE, MEDICAID, SELFPAY | PROVIDERS: PCP Family Medicine; Referring Provider Family Medicine; Visit Provider Family Medicine | DX: M81.0 Age-related osteoporosis without current pathological fracture (principal); M85.88 Other specified disorders of bone density and structure, other site | CPT/HCPCS: 77080 ==

== ENCOUNTER → 2022-09-22 10:05 | Outpatient (CLI) | payer OTHER, MEDICAID, SELFPAY ==
--- NOTE | 2022-09-22 10:06 | DI.US.S_ITS ---
PROCEDURE: US ABDOMEN COMPLETE INDICATIONS: RUQ pain, nausea TECHNIQUE: Real-time scanning was performed of the abdominal and retroperitoneal organs, with image documentation. COMPARISON: None. FINDINGS: Liver: Liver is normal in size and homogeneous in echotexture. Gallbladder: Small mobile foci of increased echogenicity are present within the gallbladder. Wall thickness measures 3 mm. Biliary ducts: Intrahepatic bile ducts are non-dilated. Extrahepatic bile duct caliber measures 8 mm. Normal is 6-7 mm or less in diameter, or 10 mm or less post-cholecystectomy. Pancreas: Visualized portions of the pancreas are sonographically normal. Spleen: Spleen is normal in size and homogeneous in echotexture. Kidneys: Kidneys are normal in size and echotexture. Right kidney measures 10.3 cm long; left kidney measures 9.7 cm long. Simple right renal cyst measuring 8 mm. Echogenic focus is noted within the superior left renal pole measuring 1.8 cm. 5 mm left renal calcification is present. Aorta: Visualized aorta is normal in caliber at less than 3 cm. Iliacs: Proximal common iliac arteries are normal in caliber at less than 2.5 cm. IVC: Intrahepatic inferior vena cava is patent. Miscellaneous: No free abdominal fluid. IMPRESSION: Gallbladder stones and sludge with wall thickness at the upper limits of normal. Recommend correlation to patient's symptoms of potential cholecystitis. Echogenic focus within the left kidney suspicious for angiomyolipoma. Dictated by: Hodan Perkins M.D. on 09/22/2022 at 16:34 Approved by: Hodan Perkins M.D. on 09/22/2022 at 16:36
== END ==
PROVIDERS: PCP Family Medicine; Referring Provider Family Medicine; Visit Provider Family Medicine
DX: R11.2 Nausea with vomiting, unspecified (principal); K80.20 Calculus of gallbladder without cholecystitis without obstruction; K82.8 Other specified diseases of gallbladder; Z87.19 Personal history of other diseases of the digestive system
CPT/HCPCS: 76700

== ENCOUNTER → 2022-09-30 08:50 | Outpatient (CLI) | payer OTHER, MEDICAID, SELFPAY ==
[2022-09-30 10:06] LABS: Hematocrit 35.3 % (36-46); Hemoglobin 11.6 g/dL (12.0-16.0); Mean Corpuscular HGB Conc 32.9 % (30-36); Mean Corpuscular Hemoglobin 27.6 PG (26-34); Mean Corpuscular Volume 83.8 fL (80-100); Platelet Count 191 X10^3/uL (150-400); Red Blood Cell Count 4.22 X10^6/uL (4.0-5.2); Red Cell Distribution Width 14.5 % (11.6-14.8); White Blood Cell Count 4.1 X10^3/uL (4.5-11.0)
[2022-09-30 10:24] LABS: Alanine Aminotransferase 23 IU/L (<35); Albumin 4.2 g/dL (3.5-5.0); Albumin Globulin Ratio 1.3 (1.0-2.8); Alkaline Phosphatase 81 U/L (38-126); Aspartate Aminotransferase 35 IU/L (14-36); BUN Creatinine Ratio 22.5 (6-22); Bilirubin Total 0.9 mg/dL (0.2-1.3); Blood Urea Nitrogen 16 mg/dL (7-17); Carbon Dioxide 28 mmol/L (22-32); Chloride 103 mmol/L (98-107); Estimated Glomerular Filt Rate > 60 mL/min (>60); Globulin 3.3 g/dL (1.7-4.1); Glucose 87 mg/dL (80-110); HEMOLYSIS < 15 (0-50); Potassium 4.1 mmol/L (3.4-5.1); Sodium 139 mmol/L (137-145); Total Protein 7.5 g/dL (6.3-8.2)
== END ==
PROVIDERS: PCP Family Medicine; Referring Provider Physician Assistant; Visit Provider Physician Assistant
DX: R19.5 Other fecal abnormalities (principal)
CPT/HCPCS: 36415; 80053; 85027

== ENCOUNTER 2022-10-17 14:26 | Emergency (ER) | payer OTHER, MEDICAID, SELFPAY ==
[2022-10-17 14:32] VITALS: BP 185/85; PULSE 74; RESP 18; TEMP 36.6; O2SAT 99; BMI 19.3
[2022-10-17 14:34] VITALS: PULSE 73; O2SAT 99
--- NOTE | 2022-10-17 14:42 | DI.RAD.S_ITS ---
PROCEDURE: XR SHOULDER LT MIN 2V INDICATIONS: trip and fall TECHNIQUE: 3 views of the shoulder were acquired. COMPARISON: [facility], CT, CT HEAD/BRAIN WO CON, 10/17/2022, 14:47. [facility], CT, CT FACIAL BONES WO CON, 10/17/2022, 14:47. [facility], CT, CT CERVICAL SPINE WO CON, 10/17/2022, 14:47. [facility], CR, XR CLAVICLE LT, 10/17/2022, 14:48. FINDINGS: Bones: No fractures or dislocations. No suspicious bony lesions. Visualized ribs appear intact. Soft tissues: No suspicious soft tissue calcifications. The visualized lung demonstrates an unremarkable appearance. IMPRESSION: No fracture dislocation can be seen by plain film. Dictated by: Major Soto M.D. on 10/17/2022 at 14:14 Approved by: Major Soto M.D. on 10/17/2022 at 14:15
--- NOTE | 2022-10-17 14:42 | DI.CT.S_ITS ---
PROCEDURE: CT FACIAL BONES WO CON INDICATIONS: trip and fall TECHNIQUE: Noncontrast 2.5 mm thick axial images acquired from the mandible through the frontal sinuses, with coronal and sagittal reformatting. For radiation dose reduction, the following was used: automated exposure control, adjustment of mA and/or kV according to patient size. COMPARISON: [facility], CR, XR CLAVICLE LT, 10/17/2022, 14:48. [facility], CR, XR SHOULDER LT MIN 2V, 10/17/2022, 14:48. [facility], CT, CT HEAD/BRAIN WO CON, 10/17/2022, 14:47. [facility], CT, CT CERVICAL SPINE WO CON, 10/17/2022, 14:47. FINDINGS: Image quality: There is artifact associated with the metallic dental hardware. Bones and teeth: Orbital harris are intact. Sinus harris show no fracture or deformity. Nasal bones and septum are intact. Visualized portions of the mandible demonstrate no fractures or subluxation. Zygomatic arches are intact. Pterygoid plates are intact. Visualized portions of the skull base and auditory canals are intact. Along the medial aspect of the mandible on both sides, benign-appearing bony excrescences can be seen, which are attributed to osteomas. Sinuses: Paranasal sinuses are aerated, without fluid levels, mucosal thickening, or mucoceles. Mastoid air cells are aerated. Bilateral richy bullosa can be seen, right larger than left. The ostiomeatal complexes are patent, yet they are constitutionally narrowed, with bilateral Tom cells. Soft tissues: No edema, masses, or fluid collections. No enlarged lymph nodes. No soft tissue lacerations or debris. Vascular: Visualized vascular structures appear normal in the absence of contrast. Bony vascular foramina and canals are intact. Atherosclerotic calcification is noted. IMPRESSION: Negative for displaced facial bone fractures. Dictated by: Major Soto M.D. on 10/17/2022 at 14:33 Approved by: Major Soto M.D. on 10/17/2022 at 14:34
--- NOTE | 2022-10-17 14:42 | DI.CT.S_ITS ---
PROCEDURE: CT CERVICAL SPINE WO CON INDICATIONS: trip and fall TECHNIQUE: Noncontrast 3 mm thick sections acquired from the skull base to the T4 level. Sagittal and coronal reformats were then constructed. For radiation dose reduction, the following was used: automated exposure control, adjustment of mA and/or kV according to patient size. COMPARISON: [facility], CR, XR CLAVICLE LT, 10/17/2022, 14:48. [facility], CR, XR SHOULDER LT MIN 2V, 10/17/2022, 14:48. [facility], CT, CT HEAD/BRAIN WO CON, 10/17/2022, 14:47. [facility], CT, CT FACIAL BONES WO CON, 10/17/2022, 14:47. FINDINGS: Image quality: Excellent. Bones: No fractures or dislocations. Visualized superior ribs are intact. Focal degenerative change is seen involving the C1-C2 interface anteriorly. There is mild disc space narrowing seen at C4-C5, with moderate to severe disc space narrowing at C5-C6. Soft tissues: Prevertebral soft tissues are normal in thickness. No paravertebral hematomas. No apical pneumothoraces. Atherosclerotic calcification is noted. Likely scarring can be seen at the lung apices, right worse than left. IMPRESSION: Negative for fracture. Degenerative changes are seen, which are worst at C1-C2 anteriorly and at C5-C6. Dictated by: Major Soto M.D. on 10/17/2022 at 14:36 Approved by: Major Soto M.D. on 10/17/2022 at 14:37
--- NOTE | 2022-10-17 14:42 | DI.CT.S_ITS ---
PROCEDURE: CT HEAD/BRAIN WO CON INDICATIONS: trip and fall TECHNIQUE: Noncontrast 4.5 mm thick angled axial sections acquired from the foramen magnum to the vertex, with coronal and sagittal reformats. For radiation dose reduction, the following was used: automated exposure control, adjustment of mA and/or kV according to patient size. COMPARISON: [facility], CR, XR CLAVICLE LT, 10/17/2022, 14:48. [facility], CR, XR SHOULDER LT MIN 2V, 10/17/2022, 14:48. [facility], CT, CT FACIAL BONES WO CON, 10/17/2022, 14:47. [facility], CT, CT CERVICAL SPINE WO CON, 10/17/2022, 14:47. FINDINGS: Image quality: Excellent. CSF spaces: Basal cisterns are patent. No extra-axial fluid collections. The ventricles are symmetric in size and shape. Brain: No intracranial bleeds or masses. There is cerebral volume loss for age, with resultant ventricular and sulcal prominence. There are periventricular and deep white matter chronic small vessel ischemic changes. There is intracranial internal carotid artery atherosclerosis. Skull and face: Calvarium and visualized facial bones appear intact, without suspicious lesions. Sinuses: Visualized sinuses and mastoids are clear. IMPRESSION: No acute intracranial hemorrhage is seen. No acute intracranial process is seen. Dictated by: Major Soto M.D. on 10/17/2022 at 14:35 Approved by: Major Soto M.D. on 10/17/2022 at 14:35
--- NOTE | 2022-10-17 14:42 | ED_ITS ---
HPI - Fall General Chief Complaint: Fall Stated Complaint: trip/slip/fall Time Seen by Provider: 10/17/22 14:26 Source: patient and EMS Mode of arrival: EMS History of Present Illness HPI Narrative: Patient is a debi 87-year-old female without significant past medical history presenting today after trip and. She is in the [employer] parking lot going to the grocery store she just could not get her foot up and she tripped over a curb. S he had a witnessed fall. She did not hit her head or lose consciousness but she did fall forward hitting her left cheek. Complaining of some arm pain. She is not on antiplatelet or anticoagulation medication. She denies any chest pain dizziness or lightheadedness. No back pain or hip pain. No shortness of breath. Related Data Home Medications Medication Instructions Recorded Confirmed Aller Clear EYE-RIGHT 01/28/21 09/27/22 Alpha Lipoic Acid PO 01/28/21 09/27/22 K2 PO 01/28/21 09/27/22 L-Argisine PO DAILY 01/28/21 09/27/22 Maq. L-Threonate PO 01/28/21 09/27/22 Vitamin D3 PO DAILY 01/28/21 09/27/22 Previous Rx's Medication Instructions Recorded estradiol 0.01% (0.1 mg/gram) 1 g vaginal 2XW #42.5 grams 01/01/22 vaginal cream (Estrace) mirabegron 25 mg tablet,extended 25 mg PO DAILY #90 tabs 01/01/22 release 24 hr hydrocodone 5 mg-acetaminophen 325 1 tab PO Q6H PRN pain #10 tabs 10/17/22 mg tablet Allergies Allergy/AdvReac Type Severity Reaction Status Date / Time No Known Drug Allergies Allergy Verified 09/27/22 09:22 Review of Systems Review of Systems ROS Unobtainable: All systems reviewed & are unremarkable except as noted in HPI and below Patient History Medical History Actinic keratoses Anorexia Anxiety Balance problem Bilateral lower extremity edema Cervical somatic dysfunction Chronic bilateral low back pain without sciatica Chronic pain in left foot Chronic pain in left foot Cranial somatic dysfunction History of calculus of gallbladder Incomplete bladder emptying Insomnia Lower urinary tract symptoms (LUTS) Lumbar region somatic dysfunction Major depressive disorder Memory problem Microscopic hematuria Nausea and vomiting in adult patient Neck stiffness Osteoporosis Pelvic somatic dysfunction Physical deconditioning Postmenopausal atrophic vaginitis Right hip pain RUQ abdominal tenderness Sacral region somatic dysfunction Seborrheic keratoses Segmental and somatic dysfunction of abdomen and other regions Segmental and somatic dysfunction of rib cage Short leg syndrome, left, acquired Somatic dysfunction of lower extremity Thoracic region somatic dysfunction Upper back pain, chronic Upper extremity somatic dysfunction Urge incontinence of urine Urinary retention Valgus deformity of right great toe Family History Mother Hyperlipidemia Hypertension Daughter Thyroid disease Kidney stones Social History marital status: number of children: 5 Smoking Status: Never smoker Smoking Status: Never smoker alcohol intake frequency: other Substance Use Type: does not use Exam Initial Vital Signs Initial Vital Signs: Vital Signs Temperature 97.9 F 10/17/22 14:32 Pulse Rate 74 10/17/22 14:32 Respiratory Rate 18 10/17/22 14:32 Blood Pressure 185/85 H 10/17/22 14:32 Pulse Oximetry 99 10/17/22 14:32 Oxygen Delivery Method Room Air 10/17/22 14:32 GENERAL: Alert very pleasant 87-year-old female HEENT: Head normocephalic,, EOMI, pupils reactive, face symmetric, left superficial laceration 3 cm NECK: S mildly tender cervical collar in place CARDIOVASCULAR: Regular rate and rhythm without murmurs, rubs or gallops. RESPIRATORY: Breath sounds equal bilaterally, no wheezes rales or rhonchi. No crepitations, no subcutaneous air, chest is nontender, no signs of trauma ABDOMEN: Soft, nontender. Normoactive bowel sounds all 4 quadrants. No guarding or rebound. BACK: Nontender vertebrae, no step-offs, no contusions PELVIS: stable. EXTREMITIES: Normal range of motion, no clubbing or edema. Right upper extremity: Within normal limits Left upper extremity: Mildly tender left shoulder without clavicle step-off Right lower extremity: Within normal limits Left lower extremity:Within normal limits NEUROLOGICAL: Cranial nerves II through XII grossly intact. Normal gait and speech. SKIN: Warm, dry, no petechiae, no rashes or lesions, no contusions or ecchymosis Procedures Laceration Repair Laceration 1: Side (If applicable): left Size (cm): 3 Description: linear Depth: simple, single layer Pre-repair: wound explored, irrigated extensively and deep structures intact Skin layer closed with: steri-strips Course Orders Ordered: ED Orders 10/17/22 14:42 CT cervical spine wo con Stat CT facial bones wo con Stat CT head/brain wo con Stat XR clavicle LT Stat XR shoulder LT min 2V Stat Discontinued Medications Hydrocodone Bitart/Acetaminophen (Hydrocodone/Acet 5/325 Tablet) 1 tab PO NOW ONE Stop: 10/17/22 15:39 Last Admin: 10/17/22 15:44 Dose: 1 tab Documented By: GAYLA Hydrocodone Bitart/Acetaminophen (Hydrocodone/Acet 5/325 Prepack) 1 bottle MISC SEEINSTR ONE Stop: 10/17/22 16:48 Last Admin: 10/17/22 16:51 Dose: 1 bottle Documented By: GAYLA Vital Signs Vital signs: Vital Signs - 8 hr 10/17/22 14:32 10/17/22 14:34 10/17/22 15:06 Temperature 97.9 F Pulse Rate 74 73 71 Respiratory Rate 18 Blood Pressure 185/85 H Pulse Oximetry 99 99 97 Oxygen Delivery Method Room Air 10/17/22 15:30 10/17/22 16:04 10/17/22 16:05 Temperature Pulse Rate 68 78 79 Respiratory Rate Blood Pressure Pulse Oximetry 98 95 99 Oxygen Delivery Method 10/17/22 16:05 Temperature Pulse Rate Respiratory Rate Blood Pressure 197/85 H Pulse Oximetry Oxygen Delivery Method MDM - Fall Imaging Data CT - cervical spine: Radiologist's Impression: PROCEDURE:? CT CERVICAL SPINE WO CON ? INDICATIONS:? trip and fall ? TECHNIQUE:? Noncontrast 3 mm thick sections acquired from the skull base to the T4 level.? Sagittal and coronal reformats were then constructed.? For radiation dose reduction, the following was used:? automated exposure control, adjustment of mA and/or kV according to patient size.? ? COMPARISON:? [facility], CR, XR CLAVICLE LT, 10/17/2022, 14:48.? [facility], CR, XR SHOULDER LT MIN 2V, 10/17/2022, 14:48.? [facility], CT, CT HEAD/BRAIN WO CON, 10/17/2022, 14:47.? [facility], CT, CT FACIAL BONES WO CON, 10/17/2022, 14:47. ? FINDINGS:? Image quality:? Excellent.? ? Bones:? No fractures or dislocations.? Visualized superior ribs are intact.? ? Focal degenerative change is seen involving the C1-C2 interface anteriorly.? There is mild disc space narrowing seen at C4-C5, with moderate to severe disc space narrowing at C5-C6. ? Soft tissues:? Prevertebral soft tissues are normal in thickness.? No paravertebral hematomas.? No apical pneumothoraces.? Atherosclerotic calcification is noted.? Likely scarring can be seen at the lung apices, right worse than left. ? ? ? IMPRESSION:? Negative for fracture. ? Degenerative changes are seen, which are worst at C1-C2 anteriorly and at C5-C6. ? ? ? Dictated by: Major Soto M.D. on 10/17/2022 at 14:36 ? ? CT scan - head: Radiologist's Impression: PROCEDURE:? CT HEAD/BRAIN WO CON ? INDICATIONS:? trip and fall ? TECHNIQUE:? Noncontrast 4.5 mm thick angled axial sections acquired from the foramen magnum to the vertex, with coronal and sagittal reformats.? For radiation dose reduction, the following was used:? automated exposure control, adjustment of mA and/or kV according to patient size.? ? COMPARISON:? [facility], CR, XR CLAVICLE LT, 10/17/2022, 14:48.? [facility], CR, XR SHOULDER LT MIN 2V, 10/17/2022, 14:48.? [facility], CT, CT FACIAL BONES WO CON, 10/17/2022, 14:47.? [facility], CT, CT CERVICAL SPINE WO CON, 10/17/2022, 14:47. ? FINDINGS:? Image quality:? Excellent.? ? CSF spaces:? Basal cisterns are patent.? No extra-axial fluid collections.? The ventricles are symmetric in size and shape.? ? Brain:? No intracranial bleeds or masses.? There is cerebral volume loss for a ge, with resultant ventricular and sulcal prominence.? There are periventricular and deep white matter chronic small vessel ischemic changes.? There is intracranial internal carotid artery atherosclerosis.? ? Skull and face:? Calvarium and visualized facial bones appear intact, without suspicious lesions.? ? Sinuses:? Visualized sinuses and mastoids are clear.? ? ? IMPRESSION:? No acute intracranial hemorrhage is seen.? ? No acute intracranial process is seen.? ? ? Dictated by: Major Soto M.D. on 10/17/2022 at 14:35 CT facial: Radiologist's Impression: PROCEDURE:? CT FACIAL BONES WO CON ? INDICATIONS:? trip and fall ? TECHNIQUE:? Noncontrast 2.5 mm thick axial images acquired from the mandible through the frontal sinuses, with coronal and sagittal reformatting.? For radiation dose reduction, the following was used:? automated exposure control, adjustment of mA and/or kV according to patient size.? ? COMPARISON:? [facility], CR, XR CLAVICLE LT, 10/17/2022, 14:48.? [facility], CR, XR SHOULDER LT MIN 2V, 10/17/2022, 14:48.? [facility], CT, CT HEAD/BRAIN WO CON, 10/17/2022, 14:47.? [facility], CT, CT CERVICAL SPINE WO CON, 10/17/2022, 14:47. ? FINDINGS:? Image quality:? There is artifact associated with the metallic dental hardware. ? ? Bones and teeth:? Orbital harris are intact.? Sinus harris show no fracture or deformity.? Nasal bones and septum are intact.? Visualized portions of the mandible demonstrate no fractures or subluxation.? Zygomatic arches are intact.? Pterygoid plates are intact.? Visualized portions of the skull base and auditory canals are intact.? ? Along the medial aspect of the mandible on both sides, benign-appearing bony excrescences can be seen, which are attributed to osteomas. ? Sinuses:? Paranasal sinuses are aerated, without fluid levels, mucosal thickening, or mucoceles.? Mastoid air cells are aerated.? Bilateral richy bullosa can be seen, right larger than left.? The ostiomeatal complexes are patent, yet they are constitutionally narrowed, with bilateral Tom cells.? ? Soft tissues:? No edema, masses, or fluid collections.? No enlarged lymph nodes. ? No soft tissue lacerations or debris.? ? Vascular:? Visualized vascular structures appear normal in the absence of contrast.? Bony vascular foramina and canals are intact.? Atherosclerotic calcification is noted.? ? ? IMPRESSION:? Negative for displaced facial bone fractures. ? ? Dictated by: Major Soto M.D. on 10/17/2022 at 14:33 ? Extremity x-ray #1: Radiologist's Impression: PROCEDURE:? XR CLAVICLE LT ? INDICATIONS:? trip and fall ? TECHNIQUE:? 2 views of the clavicle were acquired.? ? COMPARISON:? [facility], CT, CT HEAD/BRAIN WO CON, 10/17/2022, 14:47.? [facility], CT, CT FACIAL BONES WO CON, 10/17/2022, 14:47.? [facility], CR, XR SHOULDER LT MIN 2V, 10/17/2022, 14:48. ? FINDINGS:? ? Bones:? No fractures or dislocations.? No suspicious bony lesions.? ? Soft tissues:? No suspicious soft tissue calcifications.? IMPRESSION:? Negative for clavicle fracture. ? ? Dictated by: Major Soto M.D. on 10/17/2022 at 14:13 Extremity x-ray #2: Radiologist's Impression: PROCEDURE:? XR SHOULDER LT MIN 2V ? INDICATIONS:? trip and fall ? TECHNIQUE:? 3 views of the shoulder were acquired.? ? COMPARISON:? [facility], CT, CT HEAD/BRAIN WO CON, 10/17/2022, 14:47.? [facility], CT, CT FACIAL BONES WO CON, 10/17/2022, 14:47.? [facility], CT, CT CERVICAL SPINE WO CON, 10/17/2022, 14:47.? [facility], CR, XR CLAVICLE LT, 10/17/2022, 14:48. ? FINDINGS:? ? Bones:? No fractures or dislocations.? No suspicious bony lesions.? Visualized ribs appear intact.? ? Soft tissues:? No suspicious soft tissue calcifications.? The visualized lung demonstrates an unremarkable appearance. ? ? IMPRESSION:? No fracture dislocation can be seen by plain film. ? ? Dictated by: Major Soto M.D. on 10/17/2022 at 14:14? MDM Narrative Medical decision making narrative: Patient is a debi 87-year-old female who presents after a mechanical fall she just did not lift up her foot high enough to get over the curb in the parking lot falling over to her left side. Imaging is negative including head CT cervical spine CT and facial CT along with shoulder and clavicle x-rays. She has superficial laceration to her left cheek which is easily closed with Steri-Strips. She is not on antiplatelet or anticoagulation medication. She is neurologically intact. He is given Newton care to help with pain she is had it before and has tolerated it well. Time no indication for further workup. Discharge Plan Departure Patient Disposition: Home Clinical Impression: Fall, Facial laceration Instructions: DI for Laceration Repair-Skin Closure Strips, How to Prevent Falls Activity Restrictions/Additional Instructions: *You have been diagnosed with fall, left facial laceration *What to do: Expect to be sore for the next couple of days. Light activity is encouraged no strenuous activity. Light walking is good. May try heating pad as needed. Steri-Strips will fall off in a couple days then apply antibiotic ointment 1-2 times daily to help with scarring *Continue to take medications as directed Newton 1 tablet every 6 hours if needed for severe pain--> SENT TO [facility] Tylenol 650 mg every 6 hours if needed for clha-hf-zmieckfy pain *Follow up with your primary care provider in 2-3 days or call [phone] *Return to ER if you should have increasing pain numbness tingling weakness vomiting or any new, worsening or concerning symptoms CONTROLLED SUBSTANCE DISCHARGE (Narcotoic/benzodiazepine/Flexeril/Phenergan) 1. You have been prescribed narcotic medications, it does have acetaminophen/Tylenol/paracetamol in it, DO NOT TAKE MORE THAN 4,00mg in 24 hours of Tylenol. TRAMADOL DOES NOT CONTAIN TYLENOL 2. Please understand that we cannot provide further refills of narcotics, benzodiazepines or controlled substances through the ED and her pain management will need to be through your provider. 3. While on these medications you cannot drive or operate heavy machinery. 4. You cannot sign legal documents or perform any duties such as this. 5. As long as you're taking opiate pain medications he should also be taking a stool softener such as Colace, Dulcolax, MiraLAX or prune juice, to help avoid constipation. Prescriptions: New hydrocodone-acetaminophen 5-325 mg tablet 1 tab PO Q6H PRN (Reason: pain) Qty: 10 0RF No Action Vitamin D3 PO DAILY L-Argisine 500 mg capsule PO DAILY K2 75 mcg capsule PO Alpha Lipoic Acid 600 mg capsule PO Maq. L-Threonate PO Aller Clear EYE-RIGHT mirabegron 25 mg tablet extended release 24 hr 25 mg PO DAILY Qty: 90 3RF estradiol [Estrace] 0.01 % (0.1 mg/gram) cream 1 g vaginal 2XW Qty: 42.5 6RF Rx Instructions: Apply at bedtime for 12 nights then at bedtime twice a week for lifetime. Referrals: Vu Burgos DO [Primary Care Provider] - Stand Alone Forms: Patient Portal/API
--- NOTE | 2022-10-17 14:42 | DI.RAD.S_ITS ---
PROCEDURE: XR CLAVICLE LT INDICATIONS: trip and fall TECHNIQUE: 2 views of the clavicle were acquired. COMPARISON: [facility], CT, CT HEAD/BRAIN WO CON, 10/17/2022, 14:47. [facility], CT, CT FACIAL BONES WO CON, 10/17/2022, 14:47. [facility], CR, XR SHOULDER LT MIN 2V, 10/17/2022, 14:48. FINDINGS: Bones: No fractures or dislocations. No suspicious bony lesions. Soft tissues: No suspicious soft tissue calcifications. IMPRESSION: Negative for clavicle fracture. Dictated by: Major Soto M.D. on 10/17/2022 at 14:13 Approved by: Major Soto M.D. on 10/17/2022 at 14:14
--- NOTE | 2022-10-17 14:52 | PC.NURSE ---
Attempted to call pt's daughter to notify her of mom's recent fall, number listed in contacts is incorrect. Admitting and hemodialysis charge nurse advised.
--- NOTE | 2022-10-17 14:57 | PC.NURSE ---
Pt lives independently @ [facility]. Tried to call the office. No on-site management on the weekends.
[2022-10-17 15:06] VITALS: PULSE 71; O2SAT 97
[2022-10-17 15:30] VITALS: PULSE 68; O2SAT 98
[2022-10-17] MEDS: HYDROCODONE/ACET 5/325 TABLET 1 TAB PO (15:44)
[2022-10-17 16:04] VITALS: PULSE 78; O2SAT 95
[2022-10-17 16:05] VITALS: BP 197/85; PULSE 79; O2SAT 99
[2022-10-17] MEDS: HYDROCODONE/ACET 5/325 PREPACK 1 BOTTLE MISC (16:51)
--- NOTE | 2022-10-17 16:52 | PC.NURSE ---
cab called for pt to be picked up at ED entrance
== END 2022-10-17 16:52 | disposition home or self-care (01) ==
PROVIDERS: Emergency Provider Emergency Medicine; PCP Family Medicine
DX: S01.412A Laceration without foreign body of left cheek and temporomandibular area, initial encounter (principal); M25.512 Pain in left shoulder; M54.2 Cervicalgia; W01.0XXA Fall on same level from slipping, tripping and stumbling without subsequent striking against object, initial encounter
CPT/HCPCS: 70450; 70486; 72125; 73000; 73030; 99284

== ENCOUNTER → 2023-01-06 09:13 | Outpatient (CLI) | payer OTHER, MEDICAID, SELFPAY ==
--- NOTE | 2023-01-06 09:15 | DI.ECHO.S_ITS ---
Version: 1 Study ID: [id number] [place] [address] Name: DUANE JAQUEZ Study Date: 01/06/2023, 9: 41 AM : 1935 BP: 122 / 72 mmHg Gender: Female Height: 60 in Age: 87 Years Weight: 94 lb BSA: 1.35 mA? Ordering: JEROME BO Referring: JEROME BO Clinician: Noris Orozco Reason For Study: ORTHOPNEA, LOWER EXTREMITY EDEMA History: Summary Statements The left ventricle is normal in size and wall thickness. Left ventricular systolic function appears normal without focal wall motion abnormalities. The ejection fraction is estimated to be 65-70%. The right ventricle is borderline dilated. The right ventricular systolic function is normal. The left atrium is severely dilated. Right atrial size is normal. There is mild mitral valve prolapse. There is moderate mitral regurgitation. There is mild to moderate tricuspid regurgitation. There is mild to moderate pulmonic regurgitation. Moderate atherosclerotic plaque(s) in the aortic arch. Severe atherosclerotic plaque(s) in the abdominal aorta. Procedure: A two-dimensional transthoracic echocardiogram with color flow and Doppler was performed. The study quality was technically adequate. There is no prior echocardiogram noted for this patient. The heart rate ranged between 59-65 bpm during the study. Left Ventricle: The left ventricle is normal in size and wall thickness. Left ventricular systolic function appears normal without focal wall motion abnormalities. The ejection fraction is estimated to be 65-70%. Diastolic function could not be accurately assessed due to confounding valvular disease. Right Ventricle: The right ventricle is borderline dilated. The right ventricular systolic function is normal. Atria: The left atrium is severely dilated. Right atrial size is normal. There is no Doppler evidence for an interatrial shunt. Mitral Valve: Calcified mitral apparatus. There is moderate to severe mitral annular calcification. There is mild mitral valve prolapse. The mitral valve mean gradient is 2.3 mmHg. There is moderate mitral regurgitation. Aortic Valve: The aortic valve is trileaflet. The aortic valve opens well. The aortic valve is slightly calcified. There is no aortic valve stenosis. There is trace aortic regurgitation. Tricuspid Valve: The tricuspid valve is normal in structure but is abnormal in function. There is mild to moderate tricuspid regurgitation. The right ventricular systolic pressure is estimated to be at least 51 mmHg based on an estimated right atrial pressure of 15 mm Hg. Pulmonic Valve: The pulmonic valve leaflets are thin and pliable; valve motion is normal. There is mild to moderate pulmonic regurgitation. Great Vessels: The aortic root is normal size. The dimensions of the ascending aorta are normal. Moderate atherosclerotic plaque(s) in the aortic arch. Severe atherosclerotic plaque(s) in the descending aorta. The IVC is dilated (diameter is greater than 2.1 cm) and it collapses less than 50% with a sniff. This suggests a high right atrial pressure of 15 mm Hg. Pericardium/ Pleura: There is no pericardial effusion. There is no pleural effusion. 2D and M-Mode Measurements and Calculations LVIDd: 3.8 cm LVOT diam: 1.99 cm LVIDs: 2.31 cm Ao root diam: 3.1 cm IVSd: 1.02 cm asc Aorta Diam: 3.3 cm LVPWd: 0.78 cm Ao Arch Diam (Prox Trans): 2.00 cm LV puckett. diameter/BSA (cm/m^2): 2.8 LV sys. diameter/BSA (cm/m^2): 1.70 EPSS: 0.63 cm RVD1 (basal): 4.1 cm RVD2 (mid): 2.6 cm TAPSE: 2.7 cm LA A4 area: 24.7 computer programming supervisor? IVC diam: 2.40 cm LA A2 area: 28.8 computer programming supervisor? RA area: 13.2 computer programming supervisor? LA length (vol): 6.1 cm RA long axis: 4.8 cm LA vol: 99.1 ml RA vol: 30.9 ml LA vol index: 73.2 ml/mA? RA : 22.8 ml/mA? Doppler Measurements and Calculations Ao V2 max: 136.7 cm/sec LVOT Max Gume: 88.6 cm/sec Ao V2 mean: 96.1 cm/sec LV V1 max P.1 mmHg Ao V2 VTI: 30.4 cm LV V1 VTI: 21.0 cm Ao max P.5 mmHg SV(LVOT): 65.4 ml Ao mean P.2 mmHg SHILA(I,D): 2.15 computer programming supervisor? SHILA(V,D): 2.02 computer programming supervisor? SHILA indexed to BSA (cm^2/m^2): 1.59 sev ratio: 0.69 Med Peak E' Gume: 4.4 cm/sec MV mean P.33 mmHg Lat Peak E' Gume: 6.8 cm/sec MVA(VTI): 1.92 computer programming supervisor? TR max gume: 302.0 cm/sec PA mean P.22 mmHg TR max P.5 mmHg PA V2 max: 67.5 cm/sec Electronically signed by: Darren Calzada 01/06/2023, 11: 22 AM
== END ==
PROVIDERS: PCP Family Medicine; Referring Provider Family Medicine; Visit Provider Family Medicine
DX: I08.1 Rheumatic disorders of both mitral and tricuspid valves (principal); I70.0 Atherosclerosis of aorta; R60.0 Localized edema; R06.01 Orthopnea
CPT/HCPCS: 93306

== ENCOUNTER 2023-03-06 08:41 | Emergency (ER) | payer OTHER, MEDICAID, SELFPAY ==
[2023-03-06] VITALS (20 sets, daily range): BP systolic 112–160; BP diastolic 56–83; PULSE 56–73; RESP 12–23; TEMP 36.6; O2SAT 98–100; BMI 18.7
--- NOTE | 2023-03-06 08:55 | DI.RAD.S_ITS ---
PROCEDURE: XR CHEST 1V INDICATIONS: chest pain TECHNIQUE: One view of the chest was acquired. COMPARISON: None. FINDINGS: Surgical changes and devices: None. Lungs and pleura: Lungs are clear. No pleural effusions or pneumothorax. Mediastinum: Mediastinal contours appear normal. Heart size is normal. Atherosclerotic vascular calcification noted in the aortic arch. Dense annular mitral valve calcification Bones and chest wall: No suspicious bony lesions. Overlying soft tissues appear unremarkable. IMPRESSION: No acute cardiopulmonary findings Approved by: Fercho Bundy M.D. on 03/06/2023 at 8:38
[2023-03-06] MEDS: ASPIRIN 81 MG CHEW TAB 324 MG PO (09:01)
--- NOTE | 2023-03-06 09:01 | ED.CHESTPAIN ---
HPI - Chest Pain General Chief Complaint: Chest Pain Stated Complaint: thinks she had a heart attack Time Seen by Provider: 03/06/23 08:53 Source: patient Mode of arrival: Ambulatory Limitations: no limitations History of Present Illness HPI narrative: Patient is a debi 87-year-old female history of depression, balance problem, urinary incontinence, memory problem peripheral neuropathy but takes no medications daily presents today with chest pain last night. She reports that it woke her from her sleep started in the center of her chest eventually radiated to her left shoulder lasted for about an hour and a half and it went away. She thinks she may have had a heart attack. She was able to walk over here 1 block to be evaluated this morning. She did not any chest pain while walking she is no shortness of breath no nausea vomiting or abdominal pain. She had a recent echocardiogram December 2022 for orthopnea and lower extremity edema. EF at that time a 65-70% borderline right ventricle dilation, left atrium severely dilated with atherosclerotic plaque in the abdominal aorta. Patient's complete the chest pain free now. sHe has no known coronary artery disease. She is not a smoker. She does drink some alcohol occasionally and drink [place] last night. Related Data Home Medications Medication Instructions Recorded Confirmed Aller Clear EYE-RIGHT 01/28/21 02/02/23 Alpha Lipoic Acid PO 01/28/21 02/02/23 K2 PO 01/28/21 02/02/23 L-Argisine PO DAILY 01/28/21 02/02/23 Maq. L-Threonate PO 01/28/21 02/02/23 Vitamin D3 PO DAILY 01/28/21 02/02/23 Allergies Allergy/AdvReac Type Severity Reaction Status Date / Time No Known Drug Allergies Allergy Verified 02/02/23 09:41 Review of Systems Review of Systems ROS Unobtainable: All systems reviewed & are unremarkable except as noted in HPI and below Patient History Medical History Actinic keratoses Anorexia Anxiety Balance problem Bilateral leg numbness Bilateral lower extremity edema Cervical somatic dysfunction Chest pain on exertion Chronic bilateral low back pain without sciatica Chronic pain in left foot Chronic pain in left foot Constipation Cranial somatic dysfunction Gall bladder stones History of calculus of gallbladder Incomplete bladder emptying Insomnia Lower urinary tract symptoms (LUTS) Lumbar region somatic dysfunction Major depressive disorder Memory problem Microscopic hematuria Nausea and vomiting in adult patient Neck stiffness Orthopnea Osteoporosis Pelvic somatic dysfunction Physical deconditioning Physician orders for life-sustaining treatment (POLST) form indicates patient wish for [id number]-pouquomaoes status Postmenopausal atrophic vaginitis Right hip pain Right leg weakness RUQ abdominal tenderness Sacral region somatic dysfunction Seborrheic keratoses Segmental and somatic dysfunction of abdomen and other regions Segmental and somatic dysfunction of rib cage Short leg syndrome, left, acquired Somatic dysfunction of lower extremity Spell of dizziness Thoracic region somatic dysfunction Upper back pain, chronic Upper extremity somatic dysfunction Urge incontinence of urine Urinary retention Valgus deformity of right great toe Family History Mother Hyperlipidemia Hypertension Daughter Thyroid disease Kidney stones Social History marital status: number of children: 5 Smoking Status: Never smoker Smoking Status: Never smoker alcohol intake frequency: 0-2 drinks per day Alcohol type: hard liquor Substance Use Type: does not use Exam Initial Vital Signs Initial Vital Signs: Vital Signs Temperature 97.9 F 03/06/23 08:44 Pulse Rate 66 03/06/23 08:44 Respiratory Rate 18 03/06/23 08:44 Blood Pressure 133/83 03/06/23 08:44 Pulse Oximetry 100 03/06/23 08:44 Oxygen Delivery Method Room Air 03/06/23 08:44 GENERAL: Alert thin very pleasant 87-year-old female and in no acute distress. HEENT: Head atraumatic,EOMI, pupils reactive, face symmetric, moist mucous membranes CARDIOVASCULAR: Regular rate and rhythm without murmurs, rubs or gallops. RESPIRATORY: Breath sounds equal bilaterally, no wheezes rales or rhonchi. ABDOMEN: Soft, nontender. Normoactive bowel sounds all 4 quadrants. No guarding or rebound. EXTREMITIES: Normal range of motion, no clubbing or edema. Neurovascularly intact NEUROLOGICAL: Alert and oriented x4.Normal gait and speech. SKIN: Warm, dry, no laceration, no petechiae, no rashes or lesions. Course Orders Ordered: ED Orders 03/06/23 11:05 Trop I [Troponin I] Stat 03/06/23 13:40 EKG-12 Lead Stat Discontinued Medications Aspirin (Aspirin 81 Mg Chew Tab) 324 mg PO NOW ONE Stop: 03/06/23 08:56 Last Admin: 03/06/23 09:01 Dose: 324 mg Documented By: RB Vital Signs Vital signs: Vital Signs - 8 hr 03/06/23 11:00 03/06/23 11:00 03/06/23 11:15 Pulse Rate 56 L Respiratory Rate 17 Blood Pressure 125/60 120/60 Pulse Oximetry 100 03/06/23 11:15 03/06/23 11:30 03/06/23 11:30 Pulse Rate 57 L 57 L Respiratory Rate 16 17 Blood Pressure 124/60 Pulse Oximetry 100 100 03/06/23 11:45 03/06/23 11:45 03/06/23 12:00 Pulse Rate 61 Respiratory Rate 17 Blood Pressure 124/60 118/56 L Pulse Oximetry 100 03/06/23 12:00 03/06/23 12:15 03/06/23 12:15 Pulse Rate 60 59 L Respiratory Rate 15 17 Blood Pressure 115/61 Pulse Oximetry 99 98 03/06/23 12:30 03/06/23 12:30 03/06/23 12:45 Pulse Rate 59 L Respiratory Rate 18 Blood Pressure 112/57 L 117/57 L Pulse Oximetry 98 03/06/23 12:45 03/06/23 13:00 03/06/23 13:00 Pulse Rate 59 L 58 L Respiratory Rate 17 19 Blood Pressure 125/60 Pulse Oximetry 99 99 03/06/23 13:15 03/06/23 13:15 03/06/23 13:30 Pulse Rate 60 Respiratory Rate 23 Blood Pressure 125/61 129/63 Pulse Oximetry 99 03/06/23 13:30 03/06/23 13:45 03/06/23 13:45 Pulse Rate 61 60 Respiratory Rate 15 23 Blood Pressure 135/66 Pulse Oximetry 98 99 MDM - Chest Pain Lab Data 03/06/23 09:00 03/06/23 09:00 Labs: Lab Results 03/06/23 03/06/23 03/06/23 Range/Units 09:00 09:00 09:00 WBC 3.6 L (4.5-11.0) X10^3/uL RBC 4.74 (4.0-5.2) X10^6/uL Hgb 13.2 (12.0-16.0) g/dL Hct 39.6 (36-46) % MCV 83.6 (80-100) fL MCH 27.8 (26-34) PG MCHC 33.3 (30-36) % RDW 14.2 (11.6-14.8) % Plt Count 239 (150-400) X10^3/uL Neut % (Auto) 55.5 (50-75) % Lymph % (Auto) 28.9 (25-40) % Pershing % (Auto) 12.8 (3-14) % Eos % (Auto) 1.9 L (2-4) % Baso % (Auto) 0.9 (0-2) % Neut # (Auto) 2000 (8118-4929) /uL Lymph # (Auto) 1000 L (8083-6450) /uL Pershing # (Auto) 500 (0-900) /uL Eos # (Auto) 100 (0-450) /uL Baso # (Auto) 0 (0-100) /uL PT 12.2 (10.1-12.7) SECONDS INR 1.1 (0.9-1.3) APTT 32 (26-36) SECONDS Sodium 141 (137-145) mmol/L Potassium 3.9 (3.4-5.1) mmol/L Chloride 103 (98-107) mmol/L Carbon Dioxide 27 (22-32) mmol/L BUN 21 H (7-17) mg/dL Creatinine 0.85 (0.52-1.04) mg/dL Estimated GFR > 60 (>60) mL/min BUN/Creatinine Ratio 24.7 H (6-22) Glucose 97 (80-110) mg/dL Calcium 9.7 (8.4-10.2) mg/dL Magnesium 1.9 (1.6-2.3) mg/dL Total Bilirubin 1.5 H (0.2-1.3) mg/dL AST 40 H (14-36) IU/L ALT 22 (<35) IU/L Alkaline Phosphatase 87 (38-126) U/L Total Creatine Kinase 143 H (30-135) U/L Troponin I 0.088 H (0.01-0.034) ng/mL Total Protein 9.3 H (6.3-8.2) g/dL Albumin 4.8 (3.5-5.0) g/dL Globulin 4.5 H (1.7-4.1) g/dL Albumin/Globulin Ratio 1.1 (1.0-2.8) Lipase 60 (23-300) U/L 03/06/23 Range/Units 11:05 WBC (4.5-11.0) X10^3/uL RBC (4.0-5.2) X10^6/uL Hgb (12.0-16.0) g/dL Hct (36-46) % MCV (80-100) fL MCH (26-34) PG MCHC (30-36) % RDW (11.6-14.8) % Plt Count (150-400) X10^3/uL Neut % (Auto) (50-75) % Lymph % (Auto) (25-40) % Pershing % (Auto) (3-14) % Eos % (Auto) (2-4) % Baso % (Auto) (0-2) % Neut # (Auto) (0790-9503) /uL Lymph # (Auto) (9257-2211) /uL Pershing # (Auto) (0-900) /uL Eos # (Auto) (0-450) /uL Baso # (Auto) (0-100) /uL PT (10.1-12.7) SECONDS INR (0.9-1.3) APTT (26-36) SECONDS Sodium (137-145) mmol/L Potassium (3.4-5.1) mmol/L Chloride (98-107) mmol/L Carbon Dioxide (22-32) mmol/L BUN (7-17) mg/dL Creatinine (0.52-1.04) mg/dL Estimated GFR (>60) mL/min BUN/Creatinine Ratio (6-22) Glucose (80-110) mg/dL Calcium (8.4-10.2) mg/dL Magnesium (1.6-2.3) mg/dL Total Bilirubin (0.2-1.3) mg/dL AST (14-36) IU/L ALT (<35) IU/L Alkaline Phosphatase (38-126) U/L Total Creatine Kinase (30-135) U/L Troponin I 0.086 H (0.01-0.034) ng/mL Total Protein (6.3-8.2) g/dL Albumin (3.5-5.0) g/dL Globulin (1.7-4.1) g/dL Albumin/Globulin Ratio (1.0-2.8) Lipase (23-300) U/L Imaging Data Chest x-ray: Radiologist's Impression: PROCEDURE:? XR CHEST 1V ? INDICATIONS:? chest pain ? TECHNIQUE:? One view of the chest was acquired.? ? COMPARISON:? None. ? FINDINGS:? ? Surgical changes and devices:? None.? ? Lungs and pleura:? Lungs are clear.? No pleural effusions or pneumothorax.? ? Mediastinum:? Mediastinal contours appear normal.? Heart size is normal.? Atherosclerotic vascular calcification noted in the aortic arch.? Dense annular mitral valve calcification ? Bones and chest wall:? No suspicious bony lesions.? Overlying soft tissues appear unremarkable.? ? IMPRESSION:? No acute cardiopulmonary findings ? ? ? Approved by: Fercho Bundy M.D. on 03/06/2023 at 8:38? ECG Data Interpretation: Sinus rhythm rate 62 CO interval 134 QRS 86 QTC 426 noted in lead [address] changes no priors to compare EKG #2 sinus rhythm rate 62 similar to previous EKG without any new ST elevations or depressions. MDM Narrative Medical decision making narrative: Patient has no known coronary artery disease she was able to walk over here without any sort of chest pain or shortness of breath. She is found to have indeterminate troponins which are stable at 0.088 and 0.086. No EKG changes. Other blood work is reassuring chest x-ray is negative. Long discussion with patient in regards to goals. She reports that she is definitely a DNR DNI. He really does not want any stents in her heart. She understands that it may help keep her alive and at this point she really does not want that. She is offered admission however declines at this time she would like to go home. She understands that possible next time may lead to she understands. She actually has an outpatient nuclear stress test ordered for next week from her primary. She reports that today she would like to jara and understands the risks. Discharge Plan Departure Patient Disposition: Home Clinical Impression: Chest pain Instructions: DI for Chest Pain Activity Restrictions/Additional Instructions: *You have been diagnosed with chest pain *What to do: At this time you may have some underlying heart disease which may require heart stent. However at this time you are not wanting any interventions. Please continue to have your stress test next week. You are more than welcome to return to the ER at any time if you should have any worsening symptoms *Continue to take medications as directed Aspirin 81 mg daily *Follow up with your primary care provider in 2-3 days or call [phone] *Return to ER if you should have increasing chest pain shortness of breath nausea swelling or any new, worsening or concerning symptoms Prescriptions: No Action Vitamin D3 PO DAILY L-Argisine 500 mg capsule PO DAILY K2 75 mcg capsule PO Alpha Lipoic Acid 600 mg capsule PO Maq. L-Threonate PO Aller Clear EYE-RIGHT Referrals: Vu Burgos DO [Primary Care Provider] - Stand Alone Forms: Patient Portal/API
[2023-03-06 09:16] LABS: Add Manual Diff / Slide Review NO; Basophils Absolute Auto 0 /uL (0-100); Basophils Percent Auto 0.9 % (0-2); Eosinophils Absolute Auto 100 /uL (0-450); Eosinophils Percent Auto 1.9 % (2-4); Hematocrit 39.6 % (36-46); Hemoglobin 13.2 g/dL (12.0-16.0); Lymphocytes Absolute Auto 1000 /uL (1100-4500); Lymphocytes Percent Auto 28.9 % (25-40); Mean Corpuscular HGB Conc 33.3 % (30-36); Mean Corpuscular Hemoglobin 27.8 PG (26-34); Mean Corpuscular Volume 83.6 fL (80-100); Monocytes Absolute Auto 500 /uL (0-900); Monocytes Percent Auto 12.8 % (3-14); Neutrophils Absolute Auto 2000 /uL (1500-7000); Neutrophils Percent Auto 55.5 % (50-75); Platelet Count 239 X10^3/uL (150-400); Red Blood Cell Count 4.74 X10^6/uL (4.0-5.2); Red Cell Distribution Width 14.2 % (11.6-14.8); White Blood Cell Count 3.6 X10^3/uL (4.5-11.0)
[2023-03-06 09:26] LABS: INR 1.1 (0.9-1.3); Prothrombin Time 12.2 SECONDS (10.1-12.7)
[2023-03-06 09:29] LABS: PTT Partial Thromboplastin Tim 32 SECONDS (26-36)
[2023-03-06 09:31] LABS: Alanine Aminotransferase 22 IU/L (<35); Albumin 4.8 g/dL (3.5-5.0); Albumin Globulin Ratio 1.1 (1.0-2.8); Alkaline Phosphatase 87 U/L (38-126); Aspartate Aminotransferase 40 IU/L (14-36); BUN Creatinine Ratio 24.7 (6-22); Bilirubin Total 1.5 mg/dL (0.2-1.3); Blood Urea Nitrogen 21 mg/dL (7-17); Calcium 9.7 mg/dL (8.4-10.2); Carbon Dioxide 27 mmol/L (22-32); Chloride 103 mmol/L (98-107); Creatine Kinase 143 U/L (30-135); Estimated Glomerular Filt Rate > 60 mL/min (>60); Globulin 4.5 g/dL (1.7-4.1); Glucose 97 mg/dL (80-110); HEMOLYSIS < 15 (0-50); Lipase 60 U/L (23-300); Magnesium 1.9 mg/dL (1.6-2.3); Potassium 3.9 mmol/L (3.4-5.1); Sodium 141 mmol/L (137-145); Total Protein 9.3 g/dL (6.3-8.2)
[2023-03-06 09:42] LABS: Troponin I 0.088 ng/mL (0.01-0.034)
[2023-03-06 11:49] LABS: Troponin I 0.086 ng/mL (0.01-0.034)
== END 2023-03-06 13:57 | disposition home or self-care (01) ==
PROVIDERS: Emergency Provider Emergency Medicine; PCP Family Medicine
DX: R07.9 Chest pain, unspecified (principal)
CPT/HCPCS: 36415; 71045; 80053; 82550; 83690; 83735; 84484; 85025; 85610; 85730; 93005; 99284

== ENCOUNTER → 2023-03-11 | Outpatient (CLI) | payer OTHER, MEDICAID, SELFPAY ==
--- NOTE | 2023-03-12 18:51 | DI.NM.S_ITS ---
DATE OF SERVICE: 03/11/2023 PROCEDURE PERFORMED: Pharmacologic vasodilator stress and rest myocardial perfusion imaging with gating to assess ejection fraction and regional wall motion. ORDERING PROVIDER: Vu Burgos D.O. INDICATIONS: The patient is an 87-year-old female with recent emergency department visit for chest discomfort and a mildly abnormal troponin who refused admission. Upon presentation for stress testing today, she reported persistent chest discomfort, although of a different character than her previous pain. She was evaluated again in the ED with normal troponins and thus it was felt safe to proceed with stress testing. CARDIAC STRESS: Pharmacologic vasodilator stress: Per protocol, 0.4 mg of regadenoson was infused with a normal hemodynamic response. She had minimal dyspnea but no chest discomfort. Her resting ECG shows mild inferolateral ST and T-wave abnormalities at rest that become mildly accentuated with stress but remain nonspecific. She has rare PVCs and occasional PACs, at times in couplets but no sustained arrhythmias. Per protocol, 25.7 millicuries of technetium-99m Myoview was injected and she was imaged 15 minutes later using a gated SPECT acquisition protocol. The day prior, she had been injected with 25.0 millicuries of technetium-99m Myoview while at rest and was imaged 15 minutes later, again using a quantitated gated SPECT protocol. FINDINGS: 1. Raw data: There is fairly good myocardial tracer uptake without significant breast shadows. Lung/heart ratio is normal at 0.27 with a normal TID ratio of 0.69. 2. Quantitated gated SPECT: Post-stress ejection fraction is 83%, likely an overestimate because of small left ventricular volumes, and no regional wall motion abnormalities. The resting ejection fraction is 93%, again likely an overestimate, with a small resting end-diastolic volume of 57 mL. 3. Myocardial perfusion imaging: Post-stress supine images show a normal perfusion pattern without any perfusion defects. The patient was unable to lie prone, so no prone images are available. The resting images show a modest perfusion defect in the distal anterior wall and apex that is not apparent on the post-stress images and most likely reflects an attenuation artifact. IMPRESSION: 1. Normal myocardial perfusion study. 2. No perfusion defects on the post stress images, suggesting the absence of any significant myocardial ischemia or previous myocardial infarction. A mild defect is noted on the resting images, which most likely reflects an attenuation artifact. 3. High normal left ventricular systolic function with relatively small left ventricular volumes and no regional wall motion abnormalities. 4. No angina with pharmacologic vasodilator stress. There is mild accentuation of baseline ST and T-wave abnormalities with stress but these remain nonsignificant. She had rare PVCs and occasional PACs, at times in couplets, but no sustained arrhythmias. Sarah Winters - HERNANDEZ/dany/rj doc#: [id number]/job#: [id number] dd: 03/12/2023 16:38:00 dt: 03/12/2023 18:09:00 DICTATING MD/COPIES TO: Nader Stafford MD; Vu Burgos M.D. COPIES MNE: BHANU;
== END ==
LOC: NUCM 14:07
PROVIDERS: PCP Family Medicine; Referring Provider Family Medicine; Visit Provider Family Medicine
DX: R07.89 Other chest pain (principal)
CPT/HCPCS: 78452; 93017; A9502; J2785

== ENCOUNTER 2023-03-12 12:01 | Emergency (ER) | payer OTHER, MEDICAID, SELFPAY ==
--- NOTE | 2023-03-12 12:02 | DI.RAD.S_ITS ---
PROCEDURE: XR CHEST 1V INDICATIONS: chest pain TECHNIQUE: One view of the chest was acquired. COMPARISON: [facility], CR, XR CHEST 1V, 03/06/2023, 8:54. FINDINGS: Surgical changes and devices: None. Lungs and pleura: Lungs are clear. No pleural effusions or pneumothorax. Mediastinum: Mediastinal contours appear normal. Heart size is normal. Bones and chest wall: No suspicious bony lesions. Overlying soft tissues appear unremarkable. IMPRESSION: Normal for age considering mildly reduced inspiratory volume. Mitral valve region annular calcifications. These are unchanged. Dictated by: Akbar King M.D. on 03/12/2023 at 13:07 Approved by: Akbar King M.D. on 03/12/2023 at 13:07
[2023-03-12 12:05] VITALS: BP 149/65; PULSE 69; RESP 16; TEMP 36.5; O2SAT 99; BMI 19.8
[2023-03-12 12:25] LABS: Add Manual Diff / Slide Review NO; Basophils Absolute Auto 100 /uL (0-100); Basophils Percent Auto 1.4 % (0-2); Eosinophils Absolute Auto 100 /uL (0-450); Eosinophils Percent Auto 1.8 % (2-4); Hematocrit 34.3 % (36-46); Hemoglobin 11.3 g/dL (12.0-16.0); Lymphocytes Absolute Auto 900 /uL (1100-4500); Lymphocytes Percent Auto 21.7 % (25-40); Mean Corpuscular HGB Conc 32.8 % (30-36); Mean Corpuscular Hemoglobin 27.6 PG (26-34); Mean Corpuscular Volume 84.1 fL (80-100); Monocytes Absolute Auto 500 /uL (0-900); Monocytes Percent Auto 11.8 % (3-14); Neutrophils Absolute Auto 2500 /uL (1500-7000); Neutrophils Percent Auto 63.3 % (50-75); Platelet Count 229 X10^3/uL (150-400); Red Blood Cell Count 4.08 X10^6/uL (4.0-5.2); White Blood Cell Count 3.9 X10^3/uL (4.5-11.0)
[2023-03-12 12:29] LABS: INR 1.1 (0.9-1.3); Prothrombin Time 12.9 SECONDS (10.1-12.7)
[2023-03-12 12:32] LABS: PTT Partial Thromboplastin Tim 29 SECONDS (26-36)
[2023-03-12 12:47] VITALS: BP 128/60; PULSE 61; RESP 13; O2SAT 99
[2023-03-12] MEDS: ASPIRIN 81 MG CHEW TAB 324 MG PO (12:58)
[2023-03-12 13:00] VITALS: BP 128/61; PULSE 63; RESP 18; O2SAT 93
[2023-03-12 13:17] LABS: HEMOLYSIS < 15 (0-50); Potassium 4.2 mmol/L (3.4-5.1)
[2023-03-12 13:18] LABS: Alanine Aminotransferase 18 IU/L (<35); Albumin 3.9 g/dL (3.5-5.0); Albumin Globulin Ratio 1.3 (1.0-2.8); Alkaline Phosphatase 70 U/L (38-126); Aspartate Aminotransferase 31 IU/L (14-36); BUN Creatinine Ratio 25.9 (6-22); Bilirubin Total 0.7 mg/dL (0.2-1.3); Blood Urea Nitrogen 21 mg/dL (7-17); Calcium 8.9 mg/dL (8.4-10.2); Carbon Dioxide 30 mmol/L (22-32); Chloride 105 mmol/L (98-107); Creatine Kinase 106 U/L (30-135); Estimated Glomerular Filt Rate > 60 mL/min (>60); Globulin 3.1 g/dL (1.7-4.1); Glucose 93 mg/dL (80-110); Lipase 71 U/L (23-300); Magnesium 1.9 mg/dL (1.6-2.3); Sodium 138 mmol/L (137-145)
[2023-03-12 13:29] LABS: Troponin I < 0.012 ng/mL (0.01-0.034)
[2023-03-12 13:30] VITALS: BP 123/58; PULSE 57; RESP 15; O2SAT 99
--- NOTE | 2023-03-12 13:34 | ED_ITS ---
HPI - Chest Pain General Chief Complaint: Chest Pain Stated Complaint: chest pain Time Seen by Provider: 03/12/23 12:15 Source: patient and other Mode of arrival: Wheelchair Limitations: no limitations History of Present Illness HPI narrative: 87-year-old female presents from the stress test lab requesting cardiac workup. She had been seen and evaluated a few days ago after having retrosternal chest pressure while eating in the absence of other cardiac equivalent such as dizziness, weakness or lightheadedness. No nausea, vomiting, no exertional symptom. she denies recent travel, trauma or injury, no history of clot or cancer, no swelling of 1 leg or the other. No current symptoms. She had been seen and thoroughly evaluated as noted above, a few days ago and had an indeterminate troponin. She was encouraged to be hospitalized but elected to go home after discussion of risks and benefits. she had an outpatient stress test ordered and arrived today, mentioned that she had some burning pain and was sent here, stating they could not perform a stress test unless they knew her troponin was negative. Related Data Home Medications Medication Instructions Recorded Confirmed Aller Clear EYE-RIGHT 01/28/21 02/02/23 Alpha Lipoic Acid PO 01/28/21 02/02/23 K2 PO 01/28/21 02/02/23 L-Argisine PO DAILY 01/28/21 02/02/23 Maq. L-Threonate PO 01/28/21 02/02/23 Vitamin D3 PO DAILY 01/28/21 02/02/23 Allergies Allergy/AdvReac Type Severity Reaction Status Date / Time No Known Drug Allergies Allergy Verified 03/12/23 12:06 Review of Systems Review of Systems Narrative: GENERAL: Denies chills, fatigue, malaise, fever, sweats. HEENT: Denies sinus pain, ear pain, sore throat, difficulty swallowing, dizziness. RESPIRATORY: Denies dyspnea, cough, wheezing, hemoptysis, sputum. CARDIOVASCULAR: Denies chest pain, palpitations, orthopnea, edema, GASTROINTESTINAL: Denies nausea, vomiting, abdominal pain, diarrhea, constipation, melena. : Denies dysuria, frequency, incontinence, hematuria, urinary retention. MUSCULOSKELETAL: denies weakness, joint pain, or bony pain SKIN: Denies rash, skin lesions, or other NEUROLOGIC: Denies weakness, headache, numbness, change in speech, confusion, seizures, incoordination. PSYCHIATRIC: No concerning psychosocial issues. 12 point review of systems is negative except for those stated above Patient History Medical History Actinic keratoses Anorexia Anxiety Balance problem Bilateral leg numbness Bilateral lower extremity edema Cervical somatic dysfunction Chest pain on exertion Chronic bilateral low back pain without sciatica Chronic pain in left foot Chronic pain in left foot Constipation Cranial somatic dysfunction Gall bladder stones History of calculus of gallbladder Incomplete bladder emptying Insomnia Lower urinary tract symptoms (LUTS) Lumbar region somatic dysfunction Major depressive disorder Memory problem Microscopic hematuria Nausea and vomiting in adult patient Neck stiffness Orthopnea Osteoporosis Pelvic somatic dysfunction Physical deconditioning Physician orders for life-sustaining treatment (POLST) form indicates patient wish for [id number] status Postmenopausal atrophic vaginitis Right hip pain Right leg weakness RUQ abdominal tenderness Sacral region somatic dysfunction Seborrheic keratoses Segmental and somatic dysfunction of abdomen and other regions Segmental and somatic dysfunction of rib cage Short leg syndrome, left, acquired Somatic dysfunction of lower extremity Spell of dizziness Thoracic region somatic dysfunction Upper back pain, chronic Upper extremity somatic dysfunction Urge incontinence of urine Urinary retention Valgus deformity of right great toe Family History Mother Hyperlipidemia Hypertension Daughter Thyroid disease Kidney stones Social History marital status: number of children: 5 Smoking Status: Never smoker Smoking Status: Never smoker alcohol intake frequency: 0-2 drinks per day Alcohol type: hard liquor Substance Use Type: does not use Exam Narrative Exam Narrative: GENERAL: [87] year old patient appears stated age. Well-developed patient, in mild distress. HEAD: Atraumatic. Normocephalic. EYES: Pupils equal round and reactive. Extraocular motions intact. No scleral icterus. No injection or drainage. ENT: Nose without bleeding, purulent drainage. Throat without erythema, tonsillar hypertrophy or exudate. Airway patent. NECK: Trachea midline. Non tender CARDIOVASCULAR: Regular rate and rhythm without murmurs, gallops, or rubs. RESPIRATORY: Clear to auscultation. Breath sounds equal bilaterally. No wheezes, rales, or rhonchi. GASTROINTESTINAL: Abdomen soft, non-tender, nondistended. EXTREMITIES: No edema or joint tenderness. BACK: Nontender without deformity or crepitance. No flank tenderness. NEURO: AOx3. SKIN: No rash or erythema of visible areas Initial Vital Signs Initial Vital Signs: Vital Signs Temperature 97.7 F 03/12/23 12:05 Pulse Rate 69 03/12/23 12:05 Respiratory Rate 16 03/12/23 12:05 Blood Pressure 149/65 H 03/12/23 12:05 Pulse Oximetry 99 03/12/23 12:05 Oxygen Delivery Method Room Air 03/12/23 12:05 Course Orders Ordered: ED Orders 03/12/23 12:02 XR chest 1V Stat 03/12/23 12:11 EKG-12 Lead Stat 03/12/23 12:15 Complete Blood Count AUTO DIFF Stat PTT Partial Thromboplastin Markus Stat Prothrombin Time INR Stat 03/12/23 12:48 Comprehensive Metabolic Panel Stat Lipase Stat Magnesium Stat Troponin & CK Cardiac Panel Stat Discontinued Medications Aspirin (Aspirin 81 Mg Chew Tab) 324 mg PO NOW ONE Stop: 03/12/23 12:03 Last Admin: 03/12/23 12:58 Dose: 324 mg Documented By: GUILLE Vital Signs Vital signs: Vital Signs - 8 hr 03/12/23 12:05 03/12/23 12:47 03/12/23 13:00 Temperature 97.7 F Pulse Rate 69 61 Respiratory Rate 16 13 Blood Pressure 149/65 H 128/60 128/61 Pulse Oximetry 99 99 Oxygen Delivery Method Room Air 03/12/23 13:00 03/12/23 13:30 03/12/23 13:30 Temperature Pulse Rate 63 57 L Respiratory Rate 18 15 Blood Pressure 123/58 L Pulse Oximetry 93 99 Oxygen Delivery Method Room Air MDM - Chest Pain Lab Data 03/12/23 12:15 03/12/23 12:48 Labs: Lab Results 03/12/23 03/12/23 03/12/23 Range/Units 12:15 12:15 12:48 WBC 3.9 L (4.5-11.0) X10^3/uL RBC 4.08 (4.0-5.2) X10^6/uL Hgb 11.3 L (12.0-16.0) g/dL Hct 34.3 L (36-46) % MCV 84.1 (80-100) fL MCH 27.6 (26-34) PG MCHC 32.8 (30-36) % RDW 14.0 (11.6-14.8) % Plt Count 229 (150-400) X10^3/uL Neut % (Auto) 63.3 (50-75) % Lymph % (Auto) 21.7 L (25-40) % [place] % (Auto) 11.8 (3-14) % Eos % (Auto) 1.8 L (2-4) % Baso % (Auto) 1.4 (0-2) % Neut # (Auto) 2500 (7678-2277) /uL Lymph # (Auto) 900 L (5908-8305) /uL [place] # (Auto) 500 (0-900) /uL Eos # (Auto) 100 (0-450) /uL Baso # (Auto) 100 (0-100) /uL PT 12.9 H (10.1-12.7) SECONDS INR 1.1 (0.9-1.3) APTT 29 (26-36) SECONDS Sodium 138 (137-145) mmol/L Potassium 4.2 (3.4-5.1) mmol/L Chloride 105 (98-107) mmol/L Carbon Dioxide 30 (22-32) mmol/L BUN 21 H (7-17) mg/dL Creatinine 0.81 (0.52-1.04) mg/dL Estimated GFR > 60 (>60) mL/min BUN/Creatinine Ratio 25.9 H (6-22) Glucose 93 (80-110) mg/dL Calcium 8.9 (8.4-10.2) mg/dL Magnesium 1.9 (1.6-2.3) mg/dL Total Bilirubin 0.7 (0.2-1.3) mg/dL AST 31 (14-36) IU/L ALT 18 (<35) IU/L Alkaline Phosphatase 70 (38-126) U/L Total Creatine Kinase 106 (30-135) U/L Troponin I < 0.012 (0.01-0.034) ng/mL Total Protein 7.0 (6.3-8.2) g/dL Albumin 3.9 (3.5-5.0) g/dL Globulin 3.1 (1.7-4.1) g/dL Albumin/Globulin Ratio 1.3 (1.0-2.8) Lipase 71 (23-300) U/L MDM Narrative Medical decision making narrative: [87] year old patient presents withOngoing episodes of chest pressure Multiple etiologies for patient's symptoms considered including, but not limited to: [ cardiac ischemia versus esophageal spasm versus reflux versus other Prior Charts reviewed in our EMR Primary Historian: patient Labs reviewed and interpreted by myself: no significant abnormalities, most notably troponin negative Imaging reviewed: chest x-ray read normal for age patient with reassuring history and physical exam, he is symptomatic for duration of visit, EKGs nonischemic and troponins negative. She is otherwise well and free of complaint and has a stress test waiting on her, we discussed further evaluation or admission versus discharge to get her stress test and all sure the opinion that stress test is the most important part of this picture so she will be sent down the hallway. Return precautions discussed and questions answered to her apparent satisfaction Findings and discharge diagnosis discussed with patient/family followed by verbalization of understanding Return precautions discussed with patient/family whom verbalize understanding of diagnosis and plan Discharge Plan Departure Patient Disposition: Home Clinical Impression: Chest pain Instructions: DI for Chest Pain Activity Restrictions/Additional Instructions: *You have been diagnosed with [atypical chest pain. As we discussed your history and physical exam are reassuring, your EKG shows no abnormality and] *What to do: *Please continue to take your regular medications as directed. [ ] New medication prescriptions sent to your pharmacy: [ ] [ ] New medication written as a paper prescription [ ] No new medications give Please proceed directly to the stress test that is scheduled for you in 10 minutes *Return to Emergency Department if you should have any new, worsening or concerning symptoms, such as [fever greater than 101 F, shaking chills, worsening pain, persistent vomiting or other bothersome symptoms] Prescriptions: No Action Vitamin D3 PO DAILY L-Argisine 500 mg capsule PO DAILY K2 75 mcg capsule PO Alpha Lipoic Acid 600 mg capsule PO Maq. L-Threonate PO Aller Clear EYE-RIGHT Referrals: Vu Burgos DO [Primary Care Provider] - Stand Alone Forms: Patient Portal/API
== END 2023-03-12 13:59 | disposition home or self-care (01) ==
PROVIDERS: Emergency Provider Emergency Medicine; PCP Family Medicine
DX: R07.9 Chest pain, unspecified (principal)
CPT/HCPCS: 36415; 71045; 80053; 82550; 83690; 83735; 84484; 85025; 85610; 85730; 93005; 99284

== ENCOUNTER → 2023-09-16 07:31 | Outpatient (CLI) | payer OTHER, MEDICAID, SELFPAY ==
[2023-09-16 08:30] LABS: Add Manual Diff / Slide Review NO; Basophils Absolute Auto 0 /uL (0-100); Basophils Percent Auto 0.7 % (0-2); Eosinophils Absolute Auto 100 /uL (0-450); Eosinophils Percent Auto 1.3 % (2-4); Hematocrit 37.4 % (36-46); Hemoglobin 12.1 g/dL (12.0-16.0); Lymphocytes Absolute Auto 1600 /uL (1100-4500); Lymphocytes Percent Auto 37.9 % (25-40); Mean Corpuscular HGB Conc 32.3 % (30-36); Mean Corpuscular Hemoglobin 26.1 PG (26-34); Mean Corpuscular Volume 80.7 fL (80-100); Monocytes Absolute Auto 500 /uL (0-900); Monocytes Percent Auto 12.4 % (3-14); Neutrophils Absolute Auto 2000 /uL (1500-7000); Neutrophils Percent Auto 47.7 % (50-75); Platelet Count 233 X10^3/uL (150-400); Red Blood Cell Count 4.63 X10^6/uL (4.0-5.2); Red Cell Distribution Width 15.7 % (11.6-14.8); White Blood Cell Count 4.3 X10^3/uL (4.5-11.0)
[2023-09-16 09:34] LABS: Alanine Aminotransferase 16 IU/L (<35); Albumin 4.2 g/dL (3.5-5.0); Albumin Globulin Ratio 1.2 (1.0-2.8); Alkaline Phosphatase 87 U/L (38-126); Aspartate Aminotransferase 31 IU/L (14-36); BUN Creatinine Ratio 19.3 (6-22); Bilirubin Total 1.5 mg/dL (0.2-1.3); Blood Urea Nitrogen 16 mg/dL (7-17); Calcium 9.9 mg/dL (8.4-10.2); Carbon Dioxide 27 mmol/L (22-32); Chloride 107 mmol/L (98-107); Cholesterol 187 mg/dL (140-199); Estimated Glomerular Filt Rate > 60 mL/min (>60); Globulin 3.5 g/dL (1.7-4.1); Glucose 89 mg/dL (80-110); HDL Cholesterol 87 mg/dL (40-60); HEMOLYSIS < 15 (0-50); LDL Cholesterol Calculated 88 mg/dL (<100); Potassium 4.2 mmol/L (3.4-5.1); Sodium 139 mmol/L (137-145); Total Protein 7.7 g/dL (6.3-8.2); Triglycerides 60 mg/dL (35-150)
[2023-09-16 09:35] LABS: TSH w/ Reflex to FT4 1.66 uIU/mL (0.47-4.68)
== END ==
PROVIDERS: Family Provider Student in an Organized Health Care Education/Training Program; PCP Nurse Practitioner Family; Referring Provider Nurse Practitioner Family; Visit Provider Nurse Practitioner Family
DX: R10.811 Right upper quadrant abdominal tenderness (principal)
CPT/HCPCS: 36415; 80053; 80061; 84443; 85025

== ENCOUNTER 2023-09-17 08:15 | Outpatient (RCR) | payer OTHER, MEDICAID, SELFPAY ==
--- NOTE | 2023-06-25 17:22 | PT.OIE ---
Current Diagnoses Constipation, unspecified (06/25/23) Stiffness of unspecified hip, not elsewhere classified (06/25/23) Muscle weakness (generalized) (06/25/23) Other specified disorders of muscle (06/25/23) Pelvic and perineal pain (06/25/23) Past Medical History (Last Reviewed 03/12/23 @ 17:28 by Mina Bo DO) Actinic keratoses Anorexia Anxiety Balance problem Bilateral leg numbness Bilateral lower extremity edema Cervical somatic dysfunction Chest pain on exertion Chronic bilateral low back pain without sciatica Chronic pain in left foot Chronic pain in left foot Constipation Cranial somatic dysfunction Gall bladder stones History of calculus of gallbladder Incomplete bladder emptying Insomnia Lower urinary tract symptoms (LUTS) Lumbar region somatic dysfunction Major depressive disorder Memory problem Microscopic hematuria Nausea and vomiting in adult patient Neck stiffness Orthopnea Osteoporosis Pelvic somatic dysfunction Physical deconditioning Physician orders for life-sustaining treatment (POLST) form indicates patient wish for [id number] status Postmenopausal atrophic vaginitis Right hip pain Right leg weakness RUQ abdominal tenderness Sacral region somatic dysfunction Seborrheic keratoses Segmental and somatic dysfunction of abdomen and other regions Segmental and somatic dysfunction of rib cage Short leg syndrome, left, acquired Somatic dysfunction of lower extremity Spell of dizziness Thoracic region somatic dysfunction Upper back pain, chronic Upper extremity somatic dysfunction Urge incontinence of urine Urinary retention Valgus deformity of right great toe Visit Care Team Role Provider Type Lolis Ramos MD Attending Provider Physician Family Provider Primary Care Provider Referring Provider Specialty: Family Practice Obstetrics Address: [address] [place] [address] Email: [email or web address] Therapy Initial Evaluation PT-OP-A Visit Information Start: 06/08/23 17:38 Freq: Status: Active Protocol: Document 06/25/23 09:01 LRN (Rec: 06/25/23 10:27 LRN [id number]) Out-Patient Physical Therapy Visit Information Visit Information Visit Type Initial Evaluation Visit Start Time 09:01 Visit Stop Time 09:57 Total Visit Minutes 57 Visit Number 1 Evaluation Information Evaluation Date 06/25/23 Precautions Precautions Reported PMH: Arthritis, osteoporosis; history of falls close to yearly & lives independently (fallen down stairs 1x backward and backward at a sink causing R body pain, neuropathy of R hand/foot PT-OP-B Current Condition Start: 06/08/23 17:38 Freq: Status: Active Protocol: Document 06/25/23 09:01 LRN (Rec: 06/25/23 10:27 LRN [id number]) Current Condition History of Current Condition Onset Date Last 3 yrs. Current Complaints Loss of urinary control with sudden onset of urgency. History of Current Condition Urinary leakage w/laughing or running water since 30's. Not able to hold urine as a teenager with her feet in cold water. Prior to urgency, pt was able to walk around town without urinary pads and didn' t have urgency. Worsened in urgency the last 2-3 yrs along with peripheral neuropathy of the feet. Can control her urine a little, but with an urge can't hold her urine. Sitting on toilet can't shut off urine flow, but can slow it. 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 States she has been referred to OBGyn, but is not sure. Prior Treatments and Tests None. States she has done PF ex's off the internet that seem to have been helpful. Developmental History Developmental History 5 children, 4 vaginal births with last a . No complications. Treatment Goals Patient/Caregiver Goals Pt goals is 1) Be the best she can be so that she can be ambulatory w/o leakage and not to fear that she doesn't have to wear a pad, for as long as she can, 2) Exercise program to prevent urinary leakage. Personal Factors Other Personal Factors That May Effect Current GI dysfunction (gall Therapy/Recovery bladder) w/constipation, reportedly short LLE and smaller girth, Osteoporosis, neuropathy of R foot/hand, fall history, lives alone. PT-OP-C Subjective Start: 06/08/23 17:38 Freq: Status: Active Protocol: Document 06/25/23 09:01 LRN (Rec: 06/25/23 10:27 N [id number]) Patient Questionnaires Pelvic Pain and Urgency/Frequency Patient Symptom Scale Pelvic Pain Score 10 PT-OP-I Pelvic Floor Start: 06/08/23 17:38 Freq: Status: Active Protocol: Document 06/25/23 09:01 LRN (Rec: 06/25/23 10:27 [facility] [id number]) Pelvic Floor Assessment Urine Urinary Symptoms Urge Sensation Leakage Size Medium Leakage Cause Cough,Sneeze,Urge Other Leakage Causes Triggers: walking to front door, water running. Leaks Per Day 3-4 Bowel Bowel Symptoms Constipation Other Bowel Symptoms Constipation since teen, but due to gall bladder issue is having a GI study. Constipation due to gall bladder not functioning since September-October 2022. Not taking medications, but using metamucil. Having small stools, type 5. Bowel Movement Frequency Every other day having small stools (1 turd). [place] Stool Chart Type 1-7 5 Pelvic Clock Pelvic Clock 3-6 Tenderness Pelvic Clock 6-9 Tenderness Pelvic Clock 9-12 Tenderness Prolapse Cystocele Grade 1 Rectocele Grade 2 Prolapse Comments Stool felt in rectum extending into vaginal canal. Perineal Descent Resting Absent Bearing Absent Contraction Ability Voluntary Contraction Weak Voluntary Relaxation Weak Manual Muscle Testing Left 1 Manual Muscle Testing Right 0 Manual Muscle Testing Anterior 0 Manual Muscle Testing Posterior 0 Muscle Endurance (Seconds) 7 Number of Quick Contractions In 10 2 Seconds Comments Pelvic Floor Comments Small PF opening. PT-OP-J Posture/Palpation/Skin Start: 06/08/23 17:38 Freq: Status: Active Protocol: Document 06/25/23 09:01 LRN (Rec: 06/25/23 10:27 [facility] [id number]) Posture Evaluation Position Standing Head/C-Spine Posture Forward Head T-Spine Posture Increased Kyphosis Shoulder Posture (L) Elevated Pelvis Posture Anteriorly Tilted,(L) Iliac Crest Superior,(R) PSIS Inferior,(R) ASIS Inferior Hip Posture (R) Externally Rotated Knee Posture (R) Excess Flexion Ankle/Foot Posture (R) Forefoot Abducted Comments Posture Comments Moderate Kyphosis, mild lordosis, Mild anterior tilt of pelvis. R leg appears short and smaller in girth. C -curve with apex on left. PT-OP-K Range of Motion Start: 06/08/23 17:38 Freq: Status: Active Protocol: Document 06/25/23 09:01 LRN (Rec: 06/25/23 10:27 [facility] [id number]) Lumbar Spine Range of Motion Lumbar Spine Active Degrees Testing Position Standing Flexion 90 Extension 5 Rotation Left 15 Rotation Right 30 Lateral Flexion Left 5 Lateral Flexion Right 10 Comments Measurements taken were approximated. Pt was unstable in balance with ROM movements. Hip Goniometric Range of Motion Hip Right Passive Testing Position Supine Abduction 35 Internal Rotation 10 External Rotation 60 Left Passive Testing Position Supine Abduction 35 Internal Rotation 30 External Rotation 55 PT-OP-M Strength Start: 06/08/23 17:38 Freq: Status: Active Protocol: Document 06/25/23 09:01 LRN (Rec: 06/25/23 10:27 LRN [id number]) Trunk Strength Trunk Manual Muscle Testing Core Stabilization Pt is not able to maintain core stability with MMT of hips. Hip Strength Hip Manual Muscle Testing Right Flexion (L2) 4 Good Extension (S1) 3 Fair Abduction 5 Normal Adduction 3- Fair- Left Flexion (L2) 4 Good Extension (S1) 3 Fair Abduction 5 Normal Adduction 2 Poor Comments Ext was not assessed due to pt kyphosis limiting prone lying . PT-OP-Q Treatments Start: 06/08/23 17:38 Freq: Status: Active Protocol: Document 06/25/23 09:01 LRN (Rec: 06/25/23 10:27 LRN [id number]) Self-Care/Home Management Treatment Education Other Education Discussed results of evaluation, goals, and plan of care (POC). Pt agreeable to goals and POC. Discussed and educated pt in specifics for completion of in use of Bladder Diary and I/S in tracking for 1 week. PT-OP-T Assessment and Plan Start: 06/08/23 17:38 Freq: Status: Active Protocol: Document 06/25/23 09:01 LRN (Rec: 06/25/23 10:27 LRN [id number]) Physical Therapy Assessment Rehab Potential Rehabilitation Potential Good Evaluation Complexity Number of Personal Factors/Comorbidities 3 or More Number of Body Systems Impaired 4 or More Clinical Presentation at Evaluation Evolving Impairments Impairments Activity Tolerance,Pain, Posture,ROM,Soft Tissue Mobility,Strength,Transfers Other Impairments Gall bladder dysfunction resulting in onset of constipation. Goals Four Impairment PF pain in 3-11 of PF clock with palpation Short Term Goal (STG) Pt will be educated in HEP of self PF stretch and hip stretches. STG Duration 4 wks-07/23/23 Movement Therapist Goal (LTG) Pt will no longer have pain with internal palpation at the 3-11 PF clock. LTG Duration 12 wks-09/24/23 Three Impairment Urinary leakage with a strong urge. Short Term Goal (STG) Pt will be educated in urinary delay technique. STG Duration 4 wks-07/23/23 [facility] Goal (LTG) Increase PF strength (Long hold 10 secs, Quick holds 5-6 in 10 secs) with pt able to maintain urinary continence in the presence of a strong urge . LTG Duration 12 wks-09/24/23 Two Impairment Urinary leakage with gait with a strong urge. Short Term Goal (STG) Decrease need for use of urinary pad with decreased urinary leakage to decrease fear of not wearing a pad. STG Duration 6 wks-08/06/23 [facility] Goal (LTG) Pt will be able to ambulate outside of her house w/o urinary leakage. LTG Duration 12 wks-09/24/23 One Impairment Pt lacks an independent self care HEP. Short Term Goal (STG) Pt educated in proper transfers to lessen core abdominal pressure. STG Duration 2 wks-07/09/23 [facility] Goal (LTG) Pt will be independent in a self care HEP for PF ex's (PF stretches and proper contractions) to prevent urinary leakage, and hip mobility stretches/ strengthening. LTG Duration 2 wks-07/09/23 Assessment Summary Assessment Pt is an 87 yo female who presents with urinary urge incontinence symptoms due to PF and surrounding tissue ( hips, abdomen) tightness and PF pain at 3-11 of PF clock. The pt is currently experiencing gall bladder dysfunction; therefore is experiencing constipation difficulties that will hinder her progress. It is expected due to her comorbidities that her PF rehabilitation may require longer therapy time; if she is not able to progress in 6-8 weeks it would be recommended that she address her Gall Bladder/GI dysfunction before returning to therapy for her urge incontinence. The pt will benefit from skilled physical therapy to work towards achieving the above stated goals. Physical Therapy Plan Frequency and Duration Frequency of Treatment 1x/Week Duration of treatment (weeks) 12 Plan of Care Start Date 06/25/23 Plan of Care End Date 09/24/23 Therapeutic Interventions Therapeutic Interventions Home Exercise Program,Joint Mobilizations,Manual Therapy, Neuromuscular Re-education, Self-Care/Home Management,Soft Tissue Mobilization, Therapeutic Activities, Therapeutic Exercises Modalities Cold Pack/Ice Massage,Hot Packs Next Visit Focus/Plan Next Note Type Treatment Note Next Visit Plan Next: Review bladder diary, pt education in bladder retraining with urge deference technique, Educate/discuss stool types, foods, water intake, Bowel massage. Manual: stretch to PF & hip AD's, Training in proper Kegel without use of substitute muscles, reduction of intra- abdominal pressure, proper deep breathing, and proper breathing with transfers and body mechanics. Ex: Hip (AD, ext) strengthening, core stab (rot) , improve hip mobility (AB frannie , IR R>L, ER L>R), improve abdominal soft tissue (bladder /urachus) mobility; Body mechanics: proper sit to stand, and moving in bed using breathwork and core/PF stabilization for proper abdominal pressure system. POC: Pt education, Manual therapy. Therapeutic Exercises , Therapeutic Activities, Neuromuscular Reeducation
--- NOTE | 2023-07-09 12:04 | PT.OTN ---
Current Diagnoses Constipation, unspecified (07/09/23) Stiffness of unspecified hip, not elsewhere classified (07/09/23) Muscle weakness (generalized) (07/09/23) Other specified disorders of muscle (07/09/23) Pelvic and perineal pain (07/09/23) Physical Therapy Treatment Note PT-OP-A Visit Information Start: 06/08/23 17:38 Freq: Status: Active Protocol: Document 07/09/23 09:53 LRN (Rec: 07/09/23 10:35 LRN [id number]) Out-Patient Physical Therapy Visit Information Visit Information Visit Type Treatment Note Visit Start Time 09:53 Visit Stop Time 10:32 Total Visit Minutes 39 Visit Number 2 Evaluation Information Evaluation Date 06/25/23 Precautions Precautions Reported PMH: Arthritis, osteoporosis; history of falls close to yearly & lives independently (fallen down stairs 1x backward and backward at a sink causing R body pain, neuropathy of R hand/foot PT-OP-B Current Condition Start: 06/08/23 17:38 Freq: Status: Active Protocol: Document 06/25/23 09:01 LRN (Rec: 06/25/23 10:27 LRN [id number]) Current Condition History of Current Condition Onset Date Last 3 yrs. Current Complaints Loss of urinary control with sudden onset of urgency. History of Current Condition Urinary leakage w/laughing or running water since 30's. Not able to hold urine as a teenager with her feet in cold water. Prior to urgency, pt was able to walk around town without urinary pads and didn' t have urgency. Worsened in urgency the last 2-3 yrs along with peripheral neuropathy of the feet. Can control her urine a little, but with an urge can't hold her urine. Sitting on toilet can't shut off urine flow, but can slow it. 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 States she has been referred to OBGyn, but is not sure. Prior Treatments and Tests None. States she has done PF ex's off the internet that seem to have been helpful. Developmental History Developmental History 5 children, 4 vaginal births with last a . No complications. Treatment Goals Patient/Caregiver Goals Pt goals is 1) Be the best she can be so that she can be ambulatory w/o leakage and not to fear that she doesn't have to wear a pad, for as long as she can, 2) Exercise program to prevent urinary leakage. Personal Factors Other Personal Factors That May Effect Current GI dysfunction (gall Therapy/Recovery bladder) w/constipation, reportedly short LLE and smaller girth, Osteoporosis, neuropathy of R foot/hand, fall history, lives alone. PT-OP-C Subjective Start: 06/08/23 17:38 Freq: Status: Active Protocol: Document 07/09/23 09:53 LRN (Rec: 07/09/23 10:35 LRN [id number]) OP-PT Subjective Patient Comments Patient Comments Has become more aware of when she goes to the bathroom and how long urinating. Not leaking as much, but has been at home. OP-PT Pain Assessment Pain Assessment Grid Paper Pain Assessment Grid Completed Yes Location R hip Pain Location Details R lateral hip Intensity 3 Scale Used Numeric (0 - 10) Description Aching Frequency Intermittent Comments Pain Comments Pt had swelling in ankles without c/o pain. PT-OP-I Pelvic Floor Start: 06/08/23 17:38 Freq: Status: Active Protocol: Document 06/25/23 09:01 LRN (Rec: 06/25/23 10:27 LRN [id number]) Pelvic Floor Assessment Urine Urinary Symptoms Urge Sensation Leakage Size Medium Leakage Cause Cough,Sneeze,Urge Other Leakage Causes Triggers: walking to front door, water running. Leaks Per Day 3-4 Bowel Bowel Symptoms Constipation Other Bowel Symptoms Constipation since teen, but due to gall bladder issue is having a GI study. Constipation due to gall bladder not functioning since September-October 2022. Not taking medications, but using metamucil. Having small stools, type 5. Bowel Movement Frequency Every other day having small stools (1 turd). [place] Stool Chart Type 1-7 5 Pelvic Clock Pelvic Clock 3-6 Tenderness Pelvic Clock 6-9 Tenderness Pelvic Clock 9-12 Tenderness Prolapse Cystocele Grade 1 Rectocele Grade 2 Prolapse Comments Stool felt in rectum extending into vaginal canal. Perineal Descent Resting Absent Bearing Absent Contraction Ability Voluntary Contraction Weak Voluntary Relaxation Weak Manual Muscle Testing Left 1 Manual Muscle Testing Right 0 Manual Muscle Testing Anterior 0 Manual Muscle Testing Posterior 0 Muscle Endurance (Seconds) 7 Number of Quick Contractions In 10 2 Seconds Comments Pelvic Floor Comments Small PF opening. PT-OP-J Posture/Palpation/Skin Start: 06/08/23 17:38 Freq: Status: Active Protocol: Document 06/25/23 09:01 LRN (Rec: 06/25/23 10:27 LRN [id number]) Posture Evaluation Position Standing Head/C-Spine Posture Forward Head T-Spine Posture Increased Kyphosis Shoulder Posture (L) Elevated Pelvis Posture Anteriorly Tilted,(L) Iliac Crest Superior,(R) PSIS Inferior,(R) ASIS Inferior Hip Posture (R) Externally Rotated Knee Posture (R) Excess Flexion Ankle/Foot Posture (R) Forefoot Abducted Comments Posture Comments Moderate Kyphosis, mild lordosis, Mild anterior tilt of pelvis. R leg appears short and smaller in girth. C -curve with apex on left. PT-OP-K Range of Motion Start: 06/08/23 17:38 Freq: Status: Active Protocol: Document 06/25/23 09:01 LRN (Rec: 06/25/23 10:27 LRN [id number]) Lumbar Spine Range of Motion Lumbar Spine Active Degrees Testing Position Standing Flexion 90 Extension 5 Rotation Left 15 Rotation Right 30 Lateral Flexion Left 5 Lateral Flexion Right 10 Comments Measurements taken were approximated. Pt was unstable in balance with ROM movements. Hip Goniometric Range of Motion Hip Right Passive Testing Position Supine Abduction 35 Internal Rotation 10 External Rotation 60 Left Passive Testing Position Supine Abduction 35 Internal Rotation 30 External Rotation 55 PT-OP-M Strength Start: 06/08/23 17:38 Freq: Status: Active Protocol: Document 06/25/23 09:01 LRN (Rec: 06/25/23 10:27 LRN [id number]) Trunk Strength Trunk Manual Muscle Testing Core Stabilization Pt is not able to maintain core stability with MMT of hips. Hip Strength Hip Manual Muscle Testing Right Flexion (L2) 4 Good Extension (S1) 3 Fair Abduction 5 Normal Adduction 3- Fair- Left Flexion (L2) 4 Good Extension (S1) 3 Fair Abduction 5 Normal Adduction 2 Poor Comments Ext was not assessed due to pt kyphosis limiting prone lying . PT-OP-Q Treatments Start: 06/08/23 17:38 Freq: Status: Active Protocol: Document 07/09/23 09:53 LRN (Rec: 07/09/23 10:35 LRN [id number]) Therapeutic Exercises Supine Exercises Happy Baby Pose Supine Exercise Name Happy Baby Pose Reps/Minutes 6' Self-Care/Home Management Treatment Education Other Education 24' Reviewed and discussed past 2 weeks of bladder diary. Discussed dilation of caffeine with drinking more H2O prior and during the day. Recommended pt try to drink water before coffee and track fluids in and times of voiding . 9' Education/training on Urge deference technique. Activities Self-Care/Home Management Activities 3' Issued handout for Urge deference technique. Issued & reviewed HEP: Happy Baby Pose. PT-OP-T Assessment and Plan Start: 06/08/23 17:38 Freq: Status: Active Protocol: Document 07/09/23 09:53 LRN (Rec: 07/09/23 10:35 LRN [id number]) Physical Therapy Assessment Goals Four Impairment PF pain in 3-11 of PF clock with palpation Short Term Goal (STG) Pt will be educated in HEP of self PF stretch and hip stretches. 07/09/23: HEP: Happy Baby Pose (stretch at hip AD's first) STG Duration 4 wks-07/23/23 progressed Shelter Goal (LTG) Pt will no longer have pain with internal palpation at the 3-11 PF clock. LTG Duration 12 wks-09/24/23 Three Impairment Urinary leakage with a strong urge. Short Term Goal (STG) Pt will be educated in urinary delay technique. 07/09/23: Pt educated in urinary delay technique. STG Duration 4 wks-07/23/23 (07/09/23: MET GOAL) Aircraft Worker Goal (LTG) Increase PF strength (Long hold 10 secs, Quick holds 5-6 in 10 secs) with pt able to maintain urinary continence in the presence of a strong urge . LTG Duration 12 wks-09/24/23 Two Impairment Urinary leakage with gait with a strong urge. Short Term Goal (STG) Decrease need for use of urinary pad with decreased urinary leakage to decrease fear of not wearing a pad. STG Duration 6 wks-08/06/23 Shelter Goal (LTG) Pt will be able to ambulate outside of her house w/o urinary leakage. LTG Duration 12 wks-09/24/23 One Impairment Pt lacks an independent self care HEP. Short Term Goal (STG) Pt educated in proper transfers to lessen core abdominal pressure. STG Duration 2 wks-07/09/23 Aircraft Worker Goal (LTG) Pt will be independent in a self care HEP for PF ex's (PF stretches and proper contractions) to prevent urinary leakage, and hip mobility stretches/ strengthening. 07/09/23: HEP: Happy Baby Pose (stretch at hip AD's first) LTG Duration 2 wks-07/09/23 progressed Assessment Summary Assessment Pt with urinary urge incontinence symptoms due to PF and surrounding tissue ( hips, abdomen) tightness and PF pain at 3-11 of PF clock. Per bladder diary review, urinary leakage in the AM appears coffee intake related. Mostly no PM leakage and no apparent fluid intake. Times between voids are 4-7 hrs in PM with no fluid intake in PM. Physical Therapy Plan Frequency and Duration Frequency of Treatment 1x/Week Duration of treatment (weeks) 12 Plan of Care Start Date 06/25/23 Plan of Care End Date 09/24/23 Next Visit Focus/Plan Next Note Type Treatment Note Next Visit Plan Next: Assess response to pt education in urge deference technique, Educate/discuss Bowel massage. Manual: stretch hip AD's & PF , Training in proper Kegel without use of substitute muscles, reduction of intra- abdominal pressure, proper deep breathing, and proper breathing with transfers and body mechanics. Ex: Hip (AD w/stretch, ext) strengthening, core stab (rot) , improve hip mobility (AB frannie , IR R>L, ER L>R), improve abdominal soft tissue (bladder /urachus) mobility; Body mechanics: proper sit to stand, and moving in bed using breathwork and core/PF stabilization for proper abdominal pressure system. POC: Pt education, Manual therapy. Therapeutic Exercises , Therapeutic Activities, Neuromuscular Reeducation
--- NOTE | 2023-07-23 17:01 | PT.OTN ---
Current Diagnoses Constipation, unspecified (07/23/23) Stiffness of unspecified hip, not elsewhere classified (07/23/23) Muscle weakness (generalized) (07/23/23) Other specified disorders of muscle (07/23/23) Pelvic and perineal pain (07/23/23) Physical Therapy Treatment Note PT-OP-A Visit Information Start: 06/08/23 17:38 Freq: Status: Active Protocol: Document 07/23/23 09:07 LRN (Rec: 07/23/23 09:53 LRN [id number]) Out-Patient Physical Therapy Visit Information Visit Information Visit Type Treatment Note Visit Start Time 09:07 Visit Stop Time 09:52 Total Visit Minutes 45 Visit Number 3 Evaluation Information Evaluation Date 06/25/23 Precautions Precautions Reported PMH: Arthritis, osteoporosis; history of falls close to yearly & lives independently (fallen down stairs 1x backward and backward at a sink causing R body pain, neuropathy of R hand/foot PT-OP-B Current Condition Start: 06/08/23 17:38 Freq: Status: Active Protocol: Document 06/25/23 09:01 LRN (Rec: 06/25/23 10:27 LRN [id number]) Current Condition History of Current Condition Onset Date Last 3 yrs. Current Complaints Loss of urinary control with sudden onset of urgency. History of Current Condition Urinary leakage w/laughing or running water since 30's. Not able to hold urine as a teenager with her feet in cold water. Prior to urgency, pt was able to walk around town without urinary pads and didn' t have urgency. Worsened in urgency the last 2-3 yrs along with peripheral neuropathy of the feet. Can control her urine a little, but with an urge can't hold her urine. Sitting on toilet can't shut off urine flow, but can slow it. 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 States she has been referred to OBGyn, but is not sure. Prior Treatments and Tests None. States she has done PF ex's off the internet that seem to have been helpful. Developmental History Developmental History 5 children, 4 vaginal births with last a . No complications. Treatment Goals Patient/Caregiver Goals Pt goals is 1) Be the best she can be so that she can be ambulatory w/o leakage and not to fear that she doesn't have to wear a pad, for as long as she can, 2) Exercise program to prevent urinary leakage. Personal Factors Other Personal Factors That May Effect Current GI dysfunction (gall Therapy/Recovery bladder) w/constipation, reportedly short LLE and smaller girth, Osteoporosis, neuropathy of R foot/hand, fall history, lives alone. PT-OP-C Subjective Start: 06/08/23 17:38 Freq: Status: Active Protocol: Document 07/23/23 09:07 LRN (Rec: 07/23/23 09:53 LRN [id number]) OP-PT Subjective Patient Comments Patient Comments States she has been doing stretches. Has been doing the delay technique, but it is not helpful so far. When turning water on or putting hands in water, she gets an urge so strong she can't control her urine. BM's irregular and sometimes has a small plug. Drinking water before coffee. PT-OP-I Pelvic Floor Start: 06/08/23 17:38 Freq: Status: Active Protocol: Document 06/25/23 09:01 LRN (Rec: 06/25/23 10:27 LRN [id number]) Pelvic Floor Assessment Urine Urinary Symptoms Urge Sensation Leakage Size Medium Leakage Cause Cough,Sneeze,Urge Other Leakage Causes Triggers: walking to front door, water running. Leaks Per Day 3-4 Bowel Bowel Symptoms Constipation Other Bowel Symptoms Constipation since teen, but due to gall bladder issue is having a GI study. Constipation due to gall bladder not functioning since September-October 2022. Not taking medications, but using metamucil. Having small stools, type 5. Bowel Movement Frequency Every other day having small stools (1 turd). [place] Stool Chart Type 1-7 5 Pelvic Clock Pelvic Clock 3-6 Tenderness Pelvic Clock 6-9 Tenderness Pelvic Clock 9-12 Tenderness Prolapse Cystocele Grade 1 Rectocele Grade 2 Prolapse Comments Stool felt in rectum extending into vaginal canal. Perineal Descent Resting Absent Bearing Absent Contraction Ability Voluntary Contraction Weak Voluntary Relaxation Weak Manual Muscle Testing Left 1 Manual Muscle Testing Right 0 Manual Muscle Testing Anterior 0 Manual Muscle Testing Posterior 0 Muscle Endurance (Seconds) 7 Number of Quick Contractions In 10 2 Seconds Comments Pelvic Floor Comments Small PF opening. PT-OP-J Posture/Palpation/Skin Start: 06/08/23 17:38 Freq: Status: Active Protocol: Document 06/25/23 09:01 LRN (Rec: 06/25/23 10:27 LRN [id number]) Posture Evaluation Position Standing Head/C-Spine Posture Forward Head T-Spine Posture Increased Kyphosis Shoulder Posture (L) Elevated Pelvis Posture Anteriorly Tilted,(L) Iliac Crest Superior,(R) PSIS Inferior,(R) ASIS Inferior Hip Posture (R) Externally Rotated Knee Posture (R) Excess Flexion Ankle/Foot Posture (R) Forefoot Abducted Comments Posture Comments Moderate Kyphosis, mild lordosis, Mild anterior tilt of pelvis. R leg appears short and smaller in girth. C -curve with apex on left. PT-OP-K Range of Motion Start: 06/08/23 17:38 Freq: Status: Active Protocol: Document 06/25/23 09:01 LRN (Rec: 06/25/23 10:27 LRN [id number]) Lumbar Spine Range of Motion Lumbar Spine Active Degrees Testing Position Standing Flexion 90 Extension 5 Rotation Left 15 Rotation Right 30 Lateral Flexion Left 5 Lateral Flexion Right 10 Comments Measurements taken were approximated. Pt was unstable in balance with ROM movements. Hip Goniometric Range of Motion Hip Right Passive Testing Position Supine Abduction 35 Internal Rotation 10 External Rotation 60 Left Passive Testing Position Supine Abduction 35 Internal Rotation 30 External Rotation 55 PT-OP-M Strength Start: 06/08/23 17:38 Freq: Status: Active Protocol: Document 06/25/23 09:01 LRN (Rec: 06/25/23 10:27 LRN [id number]) Trunk Strength Trunk Manual Muscle Testing Core Stabilization Pt is not able to maintain core stability with MMT of hips. Hip Strength Hip Manual Muscle Testing Right Flexion (L2) 4 Good Extension (S1) 3 Fair Abduction 5 Normal Adduction 3- Fair- Left Flexion (L2) 4 Good Extension (S1) 3 Fair Abduction 5 Normal Adduction 2 Poor Comments Ext was not assessed due to pt kyphosis limiting prone lying . PT-OP-Q Treatments Start: 06/08/23 17:38 Freq: Status: Active Protocol: Document 07/23/23 09:07 LRN (Rec: 07/23/23 09:53 LRN [id number]) Therapeutic Exercises Supine Exercises Bowel massage Supine Exercise Name Bowel massage Reps/Minutes 16' Hip AD stretch Supine Exercise Name BKFO w/pillow support, f/b active stretch x 10 Side bilateral Equipment Used Pillow support to thigh Reps/Minutes 5' Comments Cuing for positioning support Happy Baby Pose Supine Exercise Name Happy Baby Pose Reps/Minutes 3' Self-Care/Home Management Treatment Education Other Education Discussed & educated in proper fluid levels, and discussed constipation/bloating and bowel masage. Pt educated and & discussed self bowel stimulation massage . Recommended pt do daily before or after raising and follow with drinking 2 C of warm water. Activities Self-Care/Home Management Activities Issued & reviewed Bowel Stimulation Massage. HEP issued: Hip AD stretch ( sup FROG & straight leg) PT-OP-T Assessment and Plan Start: 06/08/23 17:38 Freq: Status: Active Protocol: Document 07/23/23 09:07 LRN (Rec: 07/23/23 09:53 LRN [id number]) Physical Therapy Assessment Goals Four Impairment PF pain in 3-11 of PF clock with palpation Short Term Goal (STG) Pt will be educated in HEP of self PF stretch and hip stretches. 07/09/23: HEP: Happy Baby Pose (stretch at hip AD's first) STG Duration 4 wks-07/23/23 progressed Protection Specialist Goal (LTG) Pt will no longer have pain with internal palpation at the 3-11 PF clock. LTG Duration 12 wks-09/24/23 Three Impairment Urinary leakage with a strong urge. Short Term Goal (STG) Pt will be educated in urinary delay technique. 07/09/23: Pt educated in urinary delay technique. STG Duration 4 wks-07/23/23 (07/09/23: MET GOAL) Protection Specialist Goal (LTG) Increase PF strength (Long hold 10 secs, Quick holds 5-6 in 10 secs) with pt able to maintain urinary continence in the presence of a strong urge . LTG Duration 12 wks-09/24/23 Two Impairment Urinary leakage with gait with a strong urge. Short Term Goal (STG) Decrease need for use of urinary pad with decreased urinary leakage to decrease fear of not wearing a pad. STG Duration 6 wks-08/06/23 Nursing Home Goal (LTG) Pt will be able to ambulate outside of her house w/o urinary leakage. LTG Duration 12 wks-09/24/23 One Impairment Pt lacks an independent self care HEP. Short Term Goal (STG) Pt educated in proper transfers to lessen core abdominal pressure. STG Duration 2 wks-07/09/23 Protection Specialist Goal (LTG) Pt will be independent in a self care HEP for PF ex's (PF stretches and proper contractions) to prevent urinary leakage, and hip mobility stretches/ strengthening. 07/09/23: HEP: Happy Baby Pose (stretch at hip AD's first). 08/02/23: Educ Self Bowel Stim massage, HEP: Hip ADD stretch (sup FROG, Straight legs) LTG Duration 2 wks-07/09/23 progressed Assessment Summary Assessment Pt shows good understanding for instructions in bladder training for triggers and bowel massage. Pt familiar with bowel massage; therefore was quick to understand. Pt is doing well with following instructions with therapy. Physical Therapy Plan Frequency and Duration Frequency of Treatment 1x/Week Duration of treatment (weeks) 12 Plan of Care Start Date 06/25/23 Plan of Care End Date 09/24/23 Next Visit Focus/Plan Next Note Type Treatment Note Next Visit Plan Next: Assess response to education in BM massage, & urge deference technique for trigger (water on or with hands in water) Manual: stretch hip AD's & PF , Training in proper Kegel without use of substitute muscles, reduction of intra- abdominal pressure, proper deep breathing, and proper breathing with transfers and body mechanics. Ex: Hip (AD w/stretch, ext) strengthening, core stab (rot) , improve hip mobility (AB frannie , IR R>L, ER L>R), improve abdominal soft tissue (bladder /urachus) mobility; Body mechanics: proper sit to stand, and moving in bed using breathwork and core/PF stabilization for proper abdominal pressure system. POC: Pt education, Manual therapy. Therapeutic Exercises , Therapeutic Activities, Neuromuscular Reeducation
--- NOTE | 2023-08-13 09:10 | PT.OTN ---
Current Diagnoses Constipation, unspecified (08/13/23) Stiffness of unspecified hip, not elsewhere classified (08/13/23) Muscle weakness (generalized) (08/13/23) Other specified disorders of muscle (08/13/23) Pelvic and perineal pain (08/13/23) Physical Therapy Treatment Note PT-OP-A Visit Information Start: 06/08/23 17:38 Freq: Status: Active Protocol: Document 08/13/23 08:21 LRN (Rec: 08/13/23 09:09 LRN [id number]) Out-Patient Physical Therapy Visit Information Visit Information Visit Type Treatment Note Visit Start Time 08:21 Visit Stop Time 09:01 Visit Number 4 Evaluation Information Evaluation Date 06/25/23 Precautions Precautions Reported PMH: Arthritis, osteoporosis; history of falls close to yearly & lives independently (fallen down stairs 1x backward and backward at a sink causing R body pain, neuropathy of R hand/foot PT-OP-B Current Condition Start: 06/08/23 17:38 Freq: Status: Active Protocol: Document 06/25/23 09:01 LRN (Rec: 06/25/23 10:27 LRN [id number]) Current Condition History of Current Condition Onset Date Last 3 yrs. Current Complaints Loss of urinary control with sudden onset of urgency. History of Current Condition Urinary leakage w/laughing or running water since 30's. Not able to hold urine as a teenager with her feet in cold water. Prior to urgency, pt was able to walk around town without urinary pads and didn' t have urgency. Worsened in urgency the last 2-3 yrs along with peripheral neuropathy of the feet. Can control her urine a little, but with an urge can't hold her urine. Sitting on toilet can't shut off urine flow, but can slow it. 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 States she has been referred to OBGyn, but is not sure. Prior Treatments and Tests None. States she has done PF ex's off the internet that seem to have been helpful. Developmental History Developmental History 5 children, 4 vaginal births with last a . No complications. Treatment Goals Patient/Caregiver Goals Pt goals is 1) Be the best she can be so that she can be ambulatory w/o leakage and not to fear that she doesn't have to wear a pad, for as long as she can, 2) Exercise program to prevent urinary leakage. Personal Factors Other Personal Factors That May Effect Current GI dysfunction (gall Therapy/Recovery bladder) w/constipation, reportedly short LLE and smaller girth, Osteoporosis, neuropathy of R foot/hand, fall history, lives alone. PT-OP-C Subjective Start: 06/08/23 17:38 Freq: Status: Active Protocol: Document 08/13/23 08:21 LRN (Rec: 08/13/23 09:09 LRN [id number]) OP-PT Subjective Patient Comments Patient Comments States she misplaced her HEP; therefore she has not done BM massage. She did stretch legs , but overstretched so hasn't stretched recently. PT-OP-I Pelvic Floor Start: 06/08/23 17:38 Freq: Status: Active Protocol: Document 06/25/23 09:01 LRN (Rec: 06/25/23 10:27 LRN [id number]) Pelvic Floor Assessment Urine Urinary Symptoms Urge Sensation Leakage Size Medium Leakage Cause Cough,Sneeze,Urge Other Leakage Causes Triggers: walking to front door, water running. Leaks Per Day 3-4 Bowel Bowel Symptoms Constipation Other Bowel Symptoms Constipation since teen, but due to gall bladder issue is having a GI study. Constipation due to gall bladder not functioning since September-October 2022. Not taking medications, but using metamucil. Having small stools, type 5. Bowel Movement Frequency Every other day having small stools (1 turd). [place] Stool Chart Type 1-7 5 Pelvic Clock Pelvic Clock 3-6 Tenderness Pelvic Clock 6-9 Tenderness Pelvic Clock 9-12 Tenderness Prolapse Cystocele Grade 1 Rectocele Grade 2 Prolapse Comments Stool felt in rectum extending into vaginal canal. Perineal Descent Resting Absent Bearing Absent Contraction Ability Voluntary Contraction Weak Voluntary Relaxation Weak Manual Muscle Testing Left 1 Manual Muscle Testing Right 0 Manual Muscle Testing Anterior 0 Manual Muscle Testing Posterior 0 Muscle Endurance (Seconds) 7 Number of Quick Contractions In 10 2 Seconds Comments Pelvic Floor Comments Small PF opening. PT-OP-J Posture/Palpation/Skin Start: 06/08/23 17:38 Freq: Status: Active Protocol: Document 06/25/23 09:01 LRN (Rec: 06/25/23 10:27 LRN [id number]) Posture Evaluation Position Standing Head/C-Spine Posture Forward Head T-Spine Posture Increased Kyphosis Shoulder Posture (L) Elevated Pelvis Posture Anteriorly Tilted,(L) Iliac Crest Superior,(R) PSIS Inferior,(R) ASIS Inferior Hip Posture (R) Externally Rotated Knee Posture (R) Excess Flexion Ankle/Foot Posture (R) Forefoot Abducted Comments Posture Comments Moderate Kyphosis, mild lordosis, Mild anterior tilt of pelvis. R leg appears short and smaller in girth. C -curve with apex on left. PT-OP-K Range of Motion Start: 06/08/23 17:38 Freq: Status: Active Protocol: Document 06/25/23 09:01 LRN (Rec: 06/25/23 10:27 LRN [id number]) Lumbar Spine Range of Motion Lumbar Spine Active Degrees Testing Position Standing Flexion 90 Extension 5 Rotation Left 15 Rotation Right 30 Lateral Flexion Left 5 Lateral Flexion Right 10 Comments Measurements taken were approximated. Pt was unstable in balance with ROM movements. Hip Goniometric Range of Motion Hip Right Passive Testing Position Supine Abduction 35 Internal Rotation 10 External Rotation 60 Left Passive Testing Position Supine Abduction 35 Internal Rotation 30 External Rotation 55 PT-OP-M Strength Start: 06/08/23 17:38 Freq: Status: Active Protocol: Document 06/25/23 09:01 LRN (Rec: 06/25/23 10:27 LRN [id number]) Trunk Strength Trunk Manual Muscle Testing Core Stabilization Pt is not able to maintain core stability with MMT of hips. Hip Strength Hip Manual Muscle Testing Right Flexion (L2) 4 Good Extension (S1) 3 Fair Abduction 5 Normal Adduction 3- Fair- Left Flexion (L2) 4 Good Extension (S1) 3 Fair Abduction 5 Normal Adduction 2 Poor Comments Ext was not assessed due to pt kyphosis limiting prone lying . PT-OP-Q Treatments Start: 06/08/23 17:38 Freq: Status: Active Protocol: Document 08/13/23 08:21 LRN (Rec: 08/13/23 09:09 LRN [id number]) Therapeutic Exercises Supine Exercises Bowel massage Supine Exercise Name Bowel massage Reps/Minutes BM x 3 Happy Baby Pose Supine Exercise Name Happy Baby Pose Reps/Minutes 1' Sidelying Exercises TA tightening Sidelying Exercise Name TA tightening Side bilateral Reps/Minutes 2-3 breath hold x 10 (8') Comments Cuing to keep arch in back with TA tight Sitting Exercises Long leg hip AD stretch Sitting Exercise Name Long leg hip AD stretch Side bilateral Reps/Minutes 2' Comments Cuing for positioning support Hip AD stretch Sitting Exercise Name BKFO w/pillow support, f/b active stretch x 10 Reps/Minutes 5' Comments Cuing for positioning support Other Exercises Core pressure management Other Exercise Name Core pressure mgmt during transfer sup<>sit<>stand Reps/Minutes 12' Comments Constant v cuing for breath and Kegel hold (3 breaths) with transfers Self-Care/Home Management Treatment Education Other Education Discussed, reviewed and educated pt in steps for bladder retraining. Educated pt in proper transfers to lessen core abdominal pressure. Activities Self-Care/Home Management Activities Issued & reviewed HEP: Transfers sup<>sidelie<>sit<> stand with coordination of breathing and Kegel holding 3 breaths. + response to urge deference technique with pt able to make it to BR without leaking. Pt able to perform BM massage. PT-OP-T Assessment and Plan Start: 06/08/23 17:38 Freq: Status: Active Protocol: Document 08/13/23 08:21 LRN (Rec: 08/13/23 09:09 LRN [id number]) Physical Therapy Assessment Goals Four Impairment PF pain in 3-11 of PF clock with palpation Short Term Goal (STG) Pt will be educated in HEP of self PF stretch and hip stretches. 07/09/23: HEP: Happy Baby Pose (stretch at hip AD's first) STG Duration 4 wks-07/23/23 progressed Penitentiary Goal (LTG) Pt will no longer have pain with internal palpation at the 3-11 PF clock. LTG Duration 12 wks-09/24/23 Three Impairment Urinary leakage with a strong urge. Short Term Goal (STG) Pt will be educated in urinary delay technique. 07/09/23: Pt educated in urinary delay technique. 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 LTG Duration 12 wks-09/24/23 Two Impairment Urinary leakage with gait with a strong urge. Short Term Goal (STG) Decrease need for use of urinary pad with decreased urinary leakage to decrease fear of not wearing a pad. STG Duration 6 wks-08/06/23 Penitentiary Goal (LTG) Pt will be able to ambulate outside of her house w/o urinary leakage. LTG Duration 12 wks-09/24/23 One Impairment Pt lacks an independent self care HEP. Short Term Goal (STG) Pt educated in proper transfers to lessen core abdominal pressure. STG Duration 2 wks-07/09/23 (08/13/23: MET GOAL) Penitentiary Goal (LTG) Pt will be independent in a self care HEP for PF ex's (PF stretches and proper contractions) to prevent urinary leakage, and hip mobility stretches/ strengthening. 07/09/23: HEP: Happy Baby Pose (stretch at hip AD's first). 08/02/23: Educ Self Bowel Stim massage, HEP: Hip ADD stretch (sup FROG, Straight legs) LTG Duration 2 wks-07/09/23 progressed Assessment Summary Assessment Pt with urinary urge incontinence symptoms due to PF and surrounding tissue ( hips, abdomen) tightness and PF pain at 3-11 of PF clock. Pt able to quickly relearn BM massage and was able to grasp coordination of breath with transfers after much training and cuing. I expect pt to do well due to her diligence with HEP. Physical Therapy Plan Frequency and Duration Frequency of Treatment 1x/Week Duration of treatment (weeks) 12 Plan of Care Start Date 06/25/23 Plan of Care End Date 09/24/23 Next Visit Focus/Plan Next Note Type Treatment Note Next Visit Plan Next: Review urge deference technique for trigger (water on or with hands in water). Review: proper sit to stand, and moving in bed using breathwork and core/PF stabilization for proper abdominal pressure system. Progress PF strengthening, avoid supine. Manual: stretch hip AD & PF Training in proper Kegel without use of substitute muscles, reduction of intra- abdominal pressure, proper deep breathing, and proper breathing with transfers and body mechanics. Ex: Hip (AD w/stretch, ext) strengthening, core stab (rot) , improve hip mobility (AB frannie , IR R>L, ER L>R), improve abdominal soft tissue (bladder /urachus) mobility POC: Pt education, Manual therapy. Therapeutic Exercises , Therapeutic Activities, Neuromuscular Reeducation
--- NOTE | 2023-08-20 13:17 | PT.OTN ---
Current Diagnoses Constipation, unspecified (08/20/23) Stiffness of unspecified hip, not elsewhere classified (08/20/23) Muscle weakness (generalized) (08/20/23) Other specified disorders of muscle (08/20/23) Pelvic and perineal pain (08/20/23) Physical Therapy Treatment Note PT-OP-A Visit Information Start: 06/08/23 17:38 Freq: Status: Active Protocol: Document 08/20/23 07:32 LRN (Rec: 08/20/23 08:17 LRN [id number]) Out-Patient Physical Therapy Visit Information Visit Information Visit Type Treatment Note Visit Start Time 07:32 Visit Stop Time 08:10 Visit Number 5 Evaluation Information Evaluation Date 06/25/23 Precautions Precautions Reported PMH: Arthritis, osteoporosis; history of falls close to yearly & lives independently (fallen down stairs 1x backward and backward at a sink causing R body pain, neuropathy of R hand/foot PT-OP-B Current Condition Start: 06/08/23 17:38 Freq: Status: Active Protocol: Document 06/25/23 09:01 LRN (Rec: 06/25/23 10:27 LRN [id number]) Current Condition History of Current Condition Onset Date Last 3 yrs. Current Complaints Loss of urinary control with sudden onset of urgency. History of Current Condition Urinary leakage w/laughing or running water since 30's. Not able to hold urine as a teenager with her feet in cold water. Prior to urgency, pt was able to walk around town without urinary pads and didn' t have urgency. Worsened in urgency the last 2-3 yrs along with peripheral neuropathy of the feet. Can control her urine a little, but with an urge can't hold her urine. Sitting on toilet can't shut off urine flow, but can slow it. 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 States she has been referred to OBGyn, but is not sure. Prior Treatments and Tests None. States she has done PF ex's off the internet that seem to have been helpful. Developmental History Developmental History 5 children, 4 vaginal births with last a . No complications. Treatment Goals Patient/Caregiver Goals Pt goals is 1) Be the best she can be so that she can be ambulatory w/o leakage and not to fear that she doesn't have to wear a pad, for as long as she can, 2) Exercise program to prevent urinary leakage. Personal Factors Other Personal Factors That May Effect Current GI dysfunction (gall Therapy/Recovery bladder) w/constipation, reportedly short LLE and smaller girth, Osteoporosis, neuropathy of R foot/hand, fall history, lives alone. PT-OP-C Subjective Start: 06/08/23 17:38 Freq: Status: Active Protocol: Document 08/20/23 07:32 LRN (Rec: 08/20/23 08:17 LRN [id number]) OP-PT Subjective Patient Comments Patient Comments States she is not feeling well today. Hasn't been doing BM massage because she hasn't been constipated. PT-OP-I Pelvic Floor Start: 06/08/23 17:38 Freq: Status: Active Protocol: Document 06/25/23 09:01 LRN (Rec: 06/25/23 10:27 LRN [id number]) Pelvic Floor Assessment Urine Urinary Symptoms Urge Sensation Leakage Size Medium Leakage Cause Cough,Sneeze,Urge Other Leakage Causes Triggers: walking to front door, water running. Leaks Per Day 3-4 Bowel Bowel Symptoms Constipation Other Bowel Symptoms Constipation since teen, but due to gall bladder issue is having a GI study. Constipation due to gall bladder not functioning since September-October 2022. Not taking medications, but using metamucil. Having small stools, type 5. Bowel Movement Frequency Every other day having small stools (1 turd). [place] Stool Chart Type 1-7 5 Pelvic Clock Pelvic Clock 3-6 Tenderness Pelvic Clock 6-9 Tenderness Pelvic Clock 9-12 Tenderness Prolapse Cystocele Grade 1 Rectocele Grade 2 Prolapse Comments Stool felt in rectum extending into vaginal canal. Perineal Descent Resting Absent Bearing Absent Contraction Ability Voluntary Contraction Weak Voluntary Relaxation Weak Manual Muscle Testing Left 1 Manual Muscle Testing Right 0 Manual Muscle Testing Anterior 0 Manual Muscle Testing Posterior 0 Muscle Endurance (Seconds) 7 Number of Quick Contractions In 10 2 Seconds Comments Pelvic Floor Comments Small PF opening. PT-OP-J Posture/Palpation/Skin Start: 06/08/23 17:38 Freq: Status: Active Protocol: Document 06/25/23 09:01 LRN (Rec: 06/25/23 10:27 LRN [id number]) Posture Evaluation Position Standing Head/C-Spine Posture Forward Head T-Spine Posture Increased Kyphosis Shoulder Posture (L) Elevated Pelvis Posture Anteriorly Tilted,(L) Iliac Crest Superior,(R) PSIS Inferior,(R) ASIS Inferior Hip Posture (R) Externally Rotated Knee Posture (R) Excess Flexion Ankle/Foot Posture (R) Forefoot Abducted Comments Posture Comments Moderate Kyphosis, mild lordosis, Mild anterior tilt of pelvis. R leg appears short and smaller in girth. C -curve with apex on left. PT-OP-K Range of Motion Start: 06/08/23 17:38 Freq: Status: Active Protocol: Document 06/25/23 09:01 LRN (Rec: 06/25/23 10:27 LRN [id number]) Lumbar Spine Range of Motion Lumbar Spine Active Degrees Testing Position Standing Flexion 90 Extension 5 Rotation Left 15 Rotation Right 30 Lateral Flexion Left 5 Lateral Flexion Right 10 Comments Measurements taken were approximated. Pt was unstable in balance with ROM movements. Hip Goniometric Range of Motion Hip Right Passive Testing Position Supine Abduction 35 Internal Rotation 10 External Rotation 60 Left Passive Testing Position Supine Abduction 35 Internal Rotation 30 External Rotation 55 PT-OP-M Strength Start: 06/08/23 17:38 Freq: Status: Active Protocol: Document 06/25/23 09:01 LRN (Rec: 06/25/23 10:27 LRN [id number]) Trunk Strength Trunk Manual Muscle Testing Core Stabilization Pt is not able to maintain core stability with MMT of hips. Hip Strength Hip Manual Muscle Testing Right Flexion (L2) 4 Good Extension (S1) 3 Fair Abduction 5 Normal Adduction 3- Fair- Left Flexion (L2) 4 Good Extension (S1) 3 Fair Abduction 5 Normal Adduction 2 Poor Comments Ext was not assessed due to pt kyphosis limiting prone lying . PT-OP-Q Treatments Start: 06/08/23 17:38 Freq: Status: Active Protocol: Document 08/20/23 07:32 LRN (Rec: 08/20/23 08:17 LRN [id number]) Therapeutic Exercises Sidelying Exercises TA tightening Sidelying Exercise Name TA tightening Side bilateral Reps/Minutes 3 breath hold x 10 (8') Comments Cuing to keep arch in back with TA tight Sitting Exercises R hip Lateral Hip stretch Sitting Exercise Name Positioned in Long sit: R hip Lateral hip stretch Side bilateral Reps/Minutes 3' Comments Extra time to determine max barrera stretch L hip ER stretch Sitting Exercise Name Positioned in Long sit: L hip ER stretch Side left Reps/Minutes 3' Comments Extra time to determine max barrera stretch Long leg hip AD stretch Sitting Exercise Name Active Long leg hip AD stretch Side bilateral Reps/Minutes 10x each Therapeutic Activity Therapeutic Activity Sit<>stand coordinating Kegel/breath Name Sit<>stand coordinating Kegel/ breath Reps/Minutes 10x Comments V cuing and phys assist with transfer. Brief reminder to hip hinge. Manual Therapy Treatment Soft Tissue Mobilization HIP AD's Body Location Dougie Hip AD's Mobilization Type Myofascial Release,Strumming Intensity/Depth Moderate Self-Care/Home Management Treatment Education Patient Education Home Exercise Program Activities Self-Care/Home Management Activities Issued & reviewed HEP: sitting hip ER stretch and Lateral hip stretch modified from supine. PT-OP-T Assessment and Plan Start: 06/08/23 17:38 Freq: Status: Active Protocol: Document 08/20/23 07:32 LRN (Rec: 08/20/23 08:17 LRN [id number]) Physical Therapy Assessment Goals Four Impairment PF pain in 3-11 of PF clock with palpation Short Term Goal (STG) Pt will be educated in HEP of self PF stretch and hip stretches. 07/09/23: HEP: Happy Baby Pose (stretch at hip AD's first) 08/20/23: HEP: R hip IR, L hip ER stretches STG Duration 4 wks-07/23/23 progressed [facility]fp Goal (LTG) Pt will no longer have pain with internal palpation at the 3-11 PF clock. LTG Duration 12 wks-09/24/23 Three Impairment Urinary leakage with a strong urge. Short Term Goal (STG) Pt will be educated in urinary delay technique. 07/09/23: Pt educated in urinary delay technique. STG Duration 4 wks-07/23/23 (07/09/23: MET GOAL) Construction Worker Goal (LTG) Increase PF strength (Long hold 10 secs, Quick holds 5-6 in 10 secs) with pt able to maintain urinary continence in the presence of a strong urge . LTG Duration 12 wks-09/24/23 Two Impairment Urinary leakage with gait with a strong urge. Short Term Goal (STG) Decrease need for use of urinary pad with decreased urinary leakage to decrease fear of not wearing a pad. STG Duration 6 wks-08/06/23 Construction Worker Goal (LTG) Pt will be able to ambulate outside of her house w/o urinary leakage. LTG Duration 12 wks-09/24/23 One Impairment Pt lacks an independent self care HEP. Short Term Goal (STG) Pt educated in proper transfers to lessen core abdominal pressure. STG Duration 2 wks-07/09/23 (08/13/23: MET GOAL) Construction Worker Goal (LTG) Pt will be independent in a self care HEP for PF ex's (PF stretches and proper contractions) to prevent urinary leakage, and hip mobility stretches/ strengthening. 07/09/23: HEP: Happy Baby Pose (stretch at hip AD's first). 08/02/23: Educ Self Bowel Stim massage, HEP: Hip ADD stretch (sup FROG, Straight legs) 08/20/23: HEP: R hip IR, L hip ER stretches LTG Duration 2 wks-07/09/23 progressed Assessment Summary Assessment Pt with urinary urge incontinence symptoms due to PF and surrounding tissue ( hips, abdomen) tightness and PF pain at 3-11 of PF clock. Today pt is having abdominal discomfort from illness on waking today, making TA ex difficult due to abdominal pain. Pain is like when she is at the start of having a gall stone. Pt reported no longer pain at end of therapy. Physical Therapy Plan Frequency and Duration Frequency of Treatment 1x/Week Duration of treatment (weeks) 12 Plan of Care Start Date 06/25/23 Plan of Care End Date 09/24/23 Next Visit Focus/Plan Next Note Type Treatment Note Next Visit Plan Next: Review urge deference technique for trigger (water on or with hands in water). Review again: proper sit to stand, and moving in bed using breathwork and core/PF stabilization for proper abdominal pressure system. Review HEP hip stretches. Progress PF strengthening, avoid supine. Manual: stretch hip AD & PF Training in proper Kegel without use of substitute muscles, reduction of intra- abdominal pressure, proper deep breathing, and proper breathing with transfers and body mechanics. Ex: Hip (AD w/stretch, ext) strengthening, core stab (rot) , improve hip mobility (AB dougie , IR R>L, ER L>R), improve abdominal soft tissue (bladder /urachus) mobility POC: Pt education, Manual therapy. Therapeutic Exercises , Therapeutic Activities, Neuromuscular Reeducation
--- NOTE | 2023-08-27 13:37 | PT.OTN ---
Current Diagnoses Constipation, unspecified (08/27/23) Stiffness of unspecified hip, not elsewhere classified (08/27/23) Muscle weakness (generalized) (08/27/23) Other specified disorders of muscle (08/27/23) Pelvic and perineal pain (08/27/23) Physical Therapy Treatment Note PT-OP-A Visit Information Start: 06/08/23 17:38 Freq: Status: Active Protocol: Document 08/27/23 08:17 LRN (Rec: 08/27/23 09:00 LRN [id number]) Out-Patient Physical Therapy Visit Information Visit Information Visit Type Treatment Note Visit Start Time 08:17 Visit Stop Time 08:57 Visit Number 6 Evaluation Information Evaluation Date 06/25/23 Precautions Precautions Reported PMH: Arthritis, osteoporosis; history of falls close to yearly & lives independently (fallen down stairs 1x backward and backward at a sink causing R body pain, neuropathy of R hand/foot PT-OP-B Current Condition Start: 06/08/23 17:38 Freq: Status: Active Protocol: Document 06/25/23 09:01 LRN (Rec: 06/25/23 10:27 LRN [id number]) Current Condition History of Current Condition Onset Date Last 3 yrs. Current Complaints Loss of urinary control with sudden onset of urgency. History of Current Condition Urinary leakage w/laughing or running water since 30's. Not able to hold urine as a teenager with her feet in cold water. Prior to urgency, pt was able to walk around town without urinary pads and didn' t have urgency. Worsened in urgency the last 2-3 yrs along with peripheral neuropathy of the feet. Can control her urine a little, but with an urge can't hold her urine. Sitting on toilet can't shut off urine flow, but can slow it. 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 States she has been referred to OBGyn, but is not sure. Prior Treatments and Tests None. States she has done PF ex's off the internet that seem to have been helpful. Developmental History Developmental History 5 children, 4 vaginal births with last a . No complications. Treatment Goals Patient/Caregiver Goals Pt goals is 1) Be the best she can be so that she can be ambulatory w/o leakage and not to fear that she doesn't have to wear a pad, for as long as she can, 2) Exercise program to prevent urinary leakage. Personal Factors Other Personal Factors That May Effect Current GI dysfunction (gall Therapy/Recovery bladder) w/constipation, reportedly short LLE and smaller girth, Osteoporosis, neuropathy of R foot/hand, fall history, lives alone. PT-OP-C Subjective Start: 06/08/23 17:38 Freq: Status: Active Protocol: Document 08/27/23 08:17 LRN (Rec: 08/27/23 09:00 LRN [id number]) OP-PT Subjective Patient Comments Patient Comments States she is not feeling okay , laquita its in her head. Thinks she still suffers with constipation. When her LE neuropathy is not as bad, then urinary continent level is better. PT-OP-I Pelvic Floor Start: 06/08/23 17:38 Freq: Status: Active Protocol: Document 06/25/23 09:01 LRN (Rec: 06/25/23 10:27 LRN [id number]) Pelvic Floor Assessment Urine Urinary Symptoms Urge Sensation Leakage Size Medium Leakage Cause Cough,Sneeze,Urge Other Leakage Causes Triggers: walking to front door, water running. Leaks Per Day 3-4 Bowel Bowel Symptoms Constipation Other Bowel Symptoms Constipation since teen, but due to gall bladder issue is having a GI study. Constipation due to gall bladder not functioning since September-October 2022. Not taking medications, but using metamucil. Having small stools, type 5. Bowel Movement Frequency Every other day having small stools (1 turd). [place] Stool Chart Type 1-7 5 Pelvic Clock Pelvic Clock 3-6 Tenderness Pelvic Clock 6-9 Tenderness Pelvic Clock 9-12 Tenderness Prolapse Cystocele Grade 1 Rectocele Grade 2 Prolapse Comments Stool felt in rectum extending into vaginal canal. Perineal Descent Resting Absent Bearing Absent Contraction Ability Voluntary Contraction Weak Voluntary Relaxation Weak Manual Muscle Testing Left 1 Manual Muscle Testing Right 0 Manual Muscle Testing Anterior 0 Manual Muscle Testing Posterior 0 Muscle Endurance (Seconds) 7 Number of Quick Contractions In 10 2 Seconds Comments Pelvic Floor Comments Small PF opening. PT-OP-J Posture/Palpation/Skin Start: 06/08/23 17:38 Freq: Status: Active Protocol: Document 06/25/23 09:01 LRN (Rec: 06/25/23 10:27 LRN [id number]) Posture Evaluation Position Standing Head/C-Spine Posture Forward Head T-Spine Posture Increased Kyphosis Shoulder Posture (L) Elevated Pelvis Posture Anteriorly Tilted,(L) Iliac Crest Superior,(R) PSIS Inferior,(R) ASIS Inferior Hip Posture (R) Externally Rotated Knee Posture (R) Excess Flexion Ankle/Foot Posture (R) Forefoot Abducted Comments Posture Comments Moderate Kyphosis, mild lordosis, Mild anterior tilt of pelvis. R leg appears short and smaller in girth. C -curve with apex on left. PT-OP-K Range of Motion Start: 06/08/23 17:38 Freq: Status: Active Protocol: Document 06/25/23 09:01 LRN (Rec: 06/25/23 10:27 LRN [id number]) Lumbar Spine Range of Motion Lumbar Spine Active Degrees Testing Position Standing Flexion 90 Extension 5 Rotation Left 15 Rotation Right 30 Lateral Flexion Left 5 Lateral Flexion Right 10 Comments Measurements taken were approximated. Pt was unstable in balance with ROM movements. Hip Goniometric Range of Motion Hip Right Passive Testing Position Supine Abduction 35 Internal Rotation 10 External Rotation 60 Left Passive Testing Position Supine Abduction 35 Internal Rotation 30 External Rotation 55 PT-OP-M Strength Start: 06/08/23 17:38 Freq: Status: Active Protocol: Document 06/25/23 09:01 LRN (Rec: 06/25/23 10:27 LRN [id number]) Trunk Strength Trunk Manual Muscle Testing Core Stabilization Pt is not able to maintain core stability with MMT of hips. Hip Strength Hip Manual Muscle Testing Right Flexion (L2) 4 Good Extension (S1) 3 Fair Abduction 5 Normal Adduction 3- Fair- Left Flexion (L2) 4 Good Extension (S1) 3 Fair Abduction 5 Normal Adduction 2 Poor Comments Ext was not assessed due to pt kyphosis limiting prone lying . PT-OP-Q Treatments Start: 06/08/23 17:38 Freq: Status: Active Protocol: Document 08/27/23 08:17 LRN (Rec: 08/27/23 09:00 LRN [id number]) Therapeutic Exercises Sitting Exercises R hip Lateral Hip stretch Sitting Exercise Name Cross ankle over knee to pull to opp shdr Side bilateral Reps/Minutes 6' L hip ER stretch Sitting Exercise Name Knee over ankle stretch Side left Reps/Minutes 3' Comments Extra time to determine max barrera stretch Long leg hip AD stretch Sitting Exercise Name Passive and Active Long leg hip AD stretch Side bilateral Reps/Minutes 11' Comments VC's Therapeutic Activity Therapeutic Activity PF relaxation training Name Deep Breathing for PF relaxation. Reps/Minutes 6' Comments VC's for relaxation of hip AD' s and GLuts and sitting a little longer on toilet to void completely along with deep breathing. Sit<>stand coordinating Kegel/breath Name Sit<>stand coordinating Kegel/ breath Reps/Minutes 10x Comments V cuing and phys assist with transfer. Brief reminder to hip hinge. Neuro Re-Education Treatment Other Activities Bladder retraining against triggers Details Bladder retraining against sink standing and running water. Reps/Duration 10' PT-OP-T Assessment and Plan Start: 06/08/23 17:38 Freq: Status: Active Protocol: Document 08/27/23 08:17 LRN (Rec: 08/27/23 09:00 LRN [id number]) Physical Therapy Assessment Goals Four Impairment PF pain in 3-11 of PF clock with palpation Short Term Goal (STG) Pt will be educated in HEP of self PF stretch and hip stretches. 07/09/23: HEP: Happy Baby Pose (stretch at hip AD's first) 08/20/23: HEP: R hip IR, L hip ER stretches STG Duration 4 wks-07/23/23 progressed (need Inde w/hip stretches) Penitentiary Goal (LTG) Pt will no longer have pain with internal palpation at the 3-11 PF clock. LTG Duration 12 wks-09/24/23 Three Impairment Urinary leakage with a strong urge. Short Term Goal (STG) Pt will be educated in urinary delay technique. 07/09/23: Pt educated in urinary delay technique. STG Duration 4 wks-07/23/23 (07/09/23: MET GOAL) Penitentiary Goal (LTG) Increase PF strength (Long hold 10 secs, Quick holds 5-6 in 10 secs) with pt able to maintain urinary continence in the presence of a strong urge . 08/27/23: Some days is good ( no leakage), some days not able to hold urine. LTG Duration 12 wks-09/24/23 progress 04/11. Two Impairment Urinary leakage with gait with a strong urge. Short Term Goal (STG) Decrease need for use of urinary pad with decreased urinary leakage to decrease fear of not wearing a pad. STG Duration 6 wks-08/06/23 Durable Medical Equipment Repairer Goal (LTG) Pt will be able to ambulate outside of her house w/o urinary leakage. LTG Duration 12 wks-09/24/23 One Impairment Pt lacks an independent self care HEP. Short Term Goal (STG) Pt educated in proper transfers to lessen core abdominal pressure. STG Duration 2 wks-07/09/23 (08/13/23: MET GOAL) Penitentiary Goal (LTG) Pt will be independent in a self care HEP for PF ex's (PF stretches and proper contractions) to prevent urinary leakage, and hip mobility stretches/ strengthening. 07/09/23: HEP: Happy Baby Pose (stretch at hip AD's first). 08/02/23: Educ Self Bowel Stim massage, HEP: Hip ADD stretch (sup FROG, Straight legs) 08/20/23: HEP: R hip IR, L hip ER stretches LTG Duration 2 wks-07/09/23 progressed Assessment Summary Assessment Pt with urinary urge incontinence symptoms due to PF and surrounding tissue ( hips, abdomen) tightness and PF pain at 3-11 of PF clock. Pt feeling mentally not wanting to come to therapy, noting a feeling of depression onset and back pain complaints; therefore extra time needed with exercises due to her lack of motivation. Pt was able to perform proper coordination of sit<>stand with breath and Kegel with practice. Training for controlling aggrevator onset of urinary voiding urge was beneficial for pt to be aware of controlling urge with urge deference techique; therefore + response to therapy. Physical Therapy Plan Frequency and Duration Frequency of Treatment 1x/Week Duration of treatment (weeks) 12 Plan of Care Start Date 06/25/23 Plan of Care End Date 09/24/23 Next Visit Focus/Plan Next Note Type Treatment Note Next Visit Plan Note: Avoid supine positioning. Next: Remeasure hip Rot next visit if pt tols supine lying. Assess response to use of urge deference technique for limiting trigger response ( water on or with hands in water). Review again: moving in bed using breathwork and core/PF stabilization for proper abdominal pressure system. Review HEP hip stretches. AVOIDING SUPINE: Progress PF strengthening. Manual: stretch hip AD & PF Training in proper Kegel without use of substitute muscles, if needed reduction of intra-abdominal pressure & proper deep breathing, and proper breathing with transfers and body mechanics. Ex: Hip (AD w/stretch, ext) strengthening, core stab (rot) , improve hip mobility (AB frannie , IR R>L, ER L>R), improve abdominal soft tissue (bladder /urachus) mobility POC: Pt education, Manual therapy. Therapeutic Exercises , Therapeutic Activities, Neuromuscular Reeducation
--- NOTE | 2023-09-03 16:29 | PT.OTN ---
Current Diagnoses Constipation, unspecified (09/03/23) Stiffness of unspecified hip, not elsewhere classified (09/03/23) Muscle weakness (generalized) (09/03/23) Other specified disorders of muscle (09/03/23) Pelvic and perineal pain (09/03/23) Physical Therapy Treatment Note PT-OP-A Visit Information Start: 06/08/23 17:38 Freq: Status: Active Protocol: Document 09/03/23 08:17 LRN (Rec: 09/03/23 09:04 LRN [id number]) Out-Patient Physical Therapy Visit Information Visit Information Visit Type Treatment Note Visit Start Time 08:17 Visit Stop Time 08:59 Visit Number 7 Evaluation Information Evaluation Date 06/25/23 Precautions Precautions Reported PMH: Arthritis, osteoporosis; history of falls close to yearly & lives independently (fallen down stairs 1x backward and backward at a sink causing R body pain, neuropathy of R hand/foot PT-OP-B Current Condition Start: 06/08/23 17:38 Freq: Status: Active Protocol: Document 06/25/23 09:01 LRN (Rec: 06/25/23 10:27 LRN [id number]) Current Condition History of Current Condition Onset Date Last 3 yrs. Current Complaints Loss of urinary control with sudden onset of urgency. History of Current Condition Urinary leakage w/laughing or running water since 30's. Not able to hold urine as a teenager with her feet in cold water. Prior to urgency, pt was able to walk around town without urinary pads and didn' t have urgency. Worsened in urgency the last 2-3 yrs along with peripheral neuropathy of the feet. Can control her urine a little, but with an urge can't hold her urine. Sitting on toilet can't shut off urine flow, but can slow it. 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 States she has been referred to OBGyn, but is not sure. Prior Treatments and Tests None. States she has done PF ex's off the internet that seem to have been helpful. Developmental History Developmental History 5 children, 4 vaginal births with last a . No complications. Treatment Goals Patient/Caregiver Goals Pt goals is 1) Be the best she can be so that she can be ambulatory w/o leakage and not to fear that she doesn't have to wear a pad, for as long as she can, 2) Exercise program to prevent urinary leakage. Personal Factors Other Personal Factors That May Effect Current GI dysfunction (gall Therapy/Recovery bladder) w/constipation, reportedly short LLE and smaller girth, Osteoporosis, neuropathy of R foot/hand, fall history, lives alone. PT-OP-C Subjective Start: 06/08/23 17:38 Freq: Status: Active Protocol: Document 09/03/23 08:17 LRN (Rec: 09/03/23 09:04 LRN [id number]) OP-PT Subjective Patient Comments Patient Comments Had a fall 3 days ago when purse caught on door handle with packages in the arms, landing on a metal chest on her L side. She states her tenderness has gotten worse. States she is taking pain medications and using heat. Request her back to be looked at. No pain with breathing, pain with twisting. Sitting supported is less painful than unsupported. Requests no lying down. PT-OP-I Pelvic Floor Start: 06/08/23 17:38 Freq: Status: Active Protocol: Document 06/25/23 09:01 LRN (Rec: 06/25/23 10:27 LRN [id number]) Pelvic Floor Assessment Urine Urinary Symptoms Urge Sensation Leakage Size Medium Leakage Cause Cough,Sneeze,Urge Other Leakage Causes Triggers: walking to front door, water running. Leaks Per Day 3-4 Bowel Bowel Symptoms Constipation Other Bowel Symptoms Constipation since teen, but due to gall bladder issue is having a GI study. Constipation due to gall bladder not functioning since September-October 2022. Not taking medications, but using metamucil. Having small stools, type 5. Bowel Movement Frequency Every other day having small stools (1 turd). [place] Stool Chart Type 1-7 5 Pelvic Clock Pelvic Clock 3-6 Tenderness Pelvic Clock 6-9 Tenderness Pelvic Clock 9-12 Tenderness Prolapse Cystocele Grade 1 Rectocele Grade 2 Prolapse Comments Stool felt in rectum extending into vaginal canal. Perineal Descent Resting Absent Bearing Absent Contraction Ability Voluntary Contraction Weak Voluntary Relaxation Weak Manual Muscle Testing Left 1 Manual Muscle Testing Right 0 Manual Muscle Testing Anterior 0 Manual Muscle Testing Posterior 0 Muscle Endurance (Seconds) 7 Number of Quick Contractions In 10 2 Seconds Comments Pelvic Floor Comments Small PF opening. PT-OP-J Posture/Palpation/Skin Start: 06/08/23 17:38 Freq: Status: Active Protocol: Document 09/03/23 08:17 LRN (Rec: 09/03/23 16:23 LRN [id number]) Palpation Assessment Location L lateral trunk at ribs Palpation Location ~ribs 8-10 lateral trunk region. Palpation Findings Tenderness Palpation Details Ache pain at ribs with light palpation, no sharp pain of bruising noted. PT-OP-K Range of Motion Start: 06/08/23 17:38 Freq: Status: Active Protocol: Document 06/25/23 09:01 LRN (Rec: 06/25/23 10:27 LRN [id number]) Lumbar Spine Range of Motion Lumbar Spine Active Degrees Testing Position Standing Flexion 90 Extension 5 Rotation Left 15 Rotation Right 30 Lateral Flexion Left 5 Lateral Flexion Right 10 Comments Measurements taken were approximated. Pt was unstable in balance with ROM movements. Hip Goniometric Range of Motion Hip Right Passive Testing Position Supine Abduction 35 Internal Rotation 10 External Rotation 60 Left Passive Testing Position Supine Abduction 35 Internal Rotation 30 External Rotation 55 PT-OP-M Strength Start: 06/08/23 17:38 Freq: Status: Active Protocol: Document 06/25/23 09:01 LRN (Rec: 06/25/23 10:27 LRN [id number]) Trunk Strength Trunk Manual Muscle Testing Core Stabilization Pt is not able to maintain core stability with MMT of hips. Hip Strength Hip Manual Muscle Testing Right Flexion (L2) 4 Good Extension (S1) 3 Fair Abduction 5 Normal Adduction 3- Fair- Left Flexion (L2) 4 Good Extension (S1) 3 Fair Abduction 5 Normal Adduction 2 Poor Comments Ext was not assessed due to pt kyphosis limiting prone lying . PT-OP-Q Treatments Start: 06/08/23 17:38 Freq: Status: Active Protocol: Document 09/03/23 08:17 LRN (Rec: 09/03/23 09:04 LRN [id number]) Therapeutic Exercises Sitting Exercises Kegel w/ER Sitting Exercise Name Kegel w/ER, focus on relaxation btn contractions. Reps/Minutes 10 SH Kegel w/IR of legs Sitting Exercise Name Kegel w/good posture/hips IR focus on relaxation btn contractions. Side bilateral Reps/Minutes 10 SH Comments Extra time taken to determine position for max contraction Deep Breathing Sitting Exercise Name Deep Breathing Reps/Minutes 10x Comments VCs to slow breath and open abdomen Self-Care/Home Management Treatment Education Patient Education Pain Management Other Education Assess pt's L lateral trunk and discussed at length assessment of her L lateral trunk of no visible bruining noted, but her palpable pain may indicate injury. Recommended pt speak to her doctor about her fall. Discussed use of modalities after fall and recommended pt use ice after acute injury for 10-15 minutes depending on how hot area is, but that cold pack should not be directly on the skin. Discussed pt's fatigue and methods to help with relaxing for sleep and to help anxiety: Deep Breathing, warm milk. PT-OP-T Assessment and Plan Start: 06/08/23 17:38 Freq: Status: Active Protocol: Document 09/03/23 08:17 LRN (Rec: 09/03/23 09:04 LRN [id number]) Physical Therapy Assessment Goals Four Impairment PF pain in 3-11 of PF clock with palpation Short Term Goal (STG) Pt will be educated in HEP of self PF stretch and hip stretches. 07/09/23: HEP: Happy Baby Pose (stretch at hip AD's first) 08/20/23: HEP: R hip IR, L hip ER stretches STG Duration 4 wks-07/23/23 progressed (need Inde w/hip stretches) Prison Goal (LTG) Pt will no longer have pain with internal palpation at the 3-11 PF clock. LTG Duration 12 wks-09/24/23 Three Impairment Urinary leakage with a strong urge. Short Term Goal (STG) Pt will be educated in urinary delay technique. 07/09/23: Pt educated in urinary delay technique. STG Duration 4 wks-07/23/23 (07/09/23: MET GOAL) Battery Tester Goal (LTG) Increase PF strength (Long hold 10 secs, Quick holds 5-6 in 10 secs) with pt able to maintain urinary continence in the presence of a strong urge . 08/27/23: Some days is good ( no leakage), some days not able to hold urine. LTG Duration 12 wks-09/24/23 progress 04/11. Two Impairment Urinary leakage with gait with a strong urge. Short Term Goal (STG) Decrease need for use of urinary pad with decreased urinary leakage to decrease fear of not wearing a pad. STG Duration 6 wks-08/06/23 Prison Goal (LTG) Pt will be able to ambulate outside of her house w/o urinary leakage. LTG Duration 12 wks-09/24/23 One Impairment Pt lacks an independent self care HEP. Short Term Goal (STG) Pt educated in proper transfers to lessen core abdominal pressure. STG Duration 2 wks-07/09/23 (08/13/23: MET GOAL) Battery Tester Goal (LTG) Pt will be independent in a self care HEP for PF ex's (PF stretches and proper contractions) to prevent urinary leakage, and hip mobility stretches/ strengthening. 07/09/23: HEP: Happy Baby Pose (stretch at hip AD's first). 08/02/23: Educ Self Bowel Stim massage, HEP: Hip ADD stretch (sup FROG, Straight legs) 08/20/23: HEP: R hip IR, L hip ER stretches LTG Duration 2 wks-07/09/23 progressed Assessment Summary Assessment Pt with urinary urge incontinence symptoms due to PF and surrounding tissue ( hips, abdomen) tightness and PF pain at 3-11 of PF clock. Pt attends therapy today with report of falling 3 days ago, landing on her L side on a metal trunk. She has not done any exercise other than in a sitting position. States she told her daughter and has choosen not to seek further medical assessment. Pt skin in the L lateral trunk shows minimally darkened skin, but no bruise, or healing burise evident. She is very tender to touch in the lateral ~ 8-10 ribs, but no pain with breathing or walking. Pt choosing not to see doctor for her pain, believing she just has bruised ribs. Pt was encouraged to see due to her history of osteoporosis. She was able to perform sitting ex's but was slow to perform ex's. Pt feeling like she has cotton between the ears. Noted that pt was feeling secure and confident in walking to therapy today and that her DA was aware. Pt choosing to wear disposable cold pack home although advised to carry. Physical Therapy Plan Frequency and Duration Frequency of Treatment 1x/Week Duration of treatment (weeks) 12 Plan of Care Start Date 06/25/23 Plan of Care End Date 09/24/23 Next Visit Focus/Plan Next Note Type Treatment Note Next Visit Plan Note: Avoid supine positioning. Next: Remeasure hip Rot next visit if pt tols supine lying. Assess response to use of urge deference technique for limiting trigger response ( water on or with hands in water). Review again: moving in bed using breathwork and core/PF stabilization for proper abdominal pressure system. Review HEP hip stretches. AVOIDING SUPINE: Progress PF strengthening. Manual: stretch hip AD & PF Training in proper Kegel without use of substitute muscles, if needed reduction of intra-abdominal pressure & proper deep breathing, and proper breathing with transfers and body mechanics. Ex: Hip (AD w/stretch, ext) strengthening, core stab (rot) , improve hip mobility (AB frannie , IR R>L, ER L>R), improve abdominal soft tissue (bladder /urachus) mobility POC: Pt education, Manual therapy. Therapeutic Exercises , Therapeutic Activities, Neuromuscular Reeducation
--- NOTE | 2023-09-10 10:50 | PT.OTN ---
Current Diagnoses Constipation, unspecified (09/10/23) Stiffness of unspecified hip, not elsewhere classified (09/10/23) Muscle weakness (generalized) (09/10/23) Other specified disorders of muscle (09/10/23) Pelvic and perineal pain (09/10/23) Physical Therapy Treatment Note PT-OP-A Visit Information Start: 06/08/23 17:38 Freq: Status: Active Protocol: Document 09/10/23 08:17 LRN (Rec: 09/10/23 09:05 LRN [id number]) Out-Patient Physical Therapy Visit Information Visit Information Visit Type Treatment Note Visit Start Time 08:17 Visit Stop Time 09:00 Visit Number 8 Evaluation Information Evaluation Date 06/25/23 Precautions Precautions Reported PMH: Arthritis, osteoporosis; history of falls close to yearly & lives independently (fallen down stairs 1x backward and backward at a sink causing R body pain, neuropathy of R hand/foot PT-OP-B Current Condition Start: 06/08/23 17:38 Freq: Status: Active Protocol: Document 06/25/23 09:01 LRN (Rec: 06/25/23 10:27 LRN [id number]) Current Condition History of Current Condition Onset Date Last 3 yrs. Current Complaints Loss of urinary control with sudden onset of urgency. History of Current Condition Urinary leakage w/laughing or running water since 30's. Not able to hold urine as a teenager with her feet in cold water. Prior to urgency, pt was able to walk around town without urinary pads and didn' t have urgency. Worsened in urgency the last 2-3 yrs along with peripheral neuropathy of the feet. Can control her urine a little, but with an urge can't hold her urine. Sitting on toilet can't shut off urine flow, but can slow it. 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 States she has been referred to OBGyn, but is not sure. Prior Treatments and Tests None. States she has done PF ex's off the internet that seem to have been helpful. Developmental History Developmental History 5 children, 4 vaginal births with last a . No complications. Treatment Goals Patient/Caregiver Goals Pt goals is 1) Be the best she can be so that she can be ambulatory w/o leakage and not to fear that she doesn't have to wear a pad, for as long as she can, 2) Exercise program to prevent urinary leakage. Personal Factors Other Personal Factors That May Effect Current GI dysfunction (gall Therapy/Recovery bladder) w/constipation, reportedly short LLE and smaller girth, Osteoporosis, neuropathy of R foot/hand, fall history, lives alone. PT-OP-C Subjective Start: 06/08/23 17:38 Freq: Status: Active Protocol: Document 09/10/23 08:17 LRN (Rec: 09/10/23 09:05 LRN [id number]) OP-PT Subjective Patient Comments Patient Comments Having diarrhea this morning. Back pain is a little less. No urinary incontinence. Sensation in LE's is normal. Leg strength is normal weak. Tried being still for 2 days , but no change in pain. Feeling depressed from the chronic pain. PT-OP-I Pelvic Floor Start: 06/08/23 17:38 Freq: Status: Active Protocol: Document 06/25/23 09:01 LRN (Rec: 06/25/23 10:27 LRN [id number]) Pelvic Floor Assessment Urine Urinary Symptoms Urge Sensation Leakage Size Medium Leakage Cause Cough,Sneeze,Urge Other Leakage Causes Triggers: walking to front door, water running. Leaks Per Day 3-4 Bowel Bowel Symptoms Constipation Other Bowel Symptoms Constipation since teen, but due to gall bladder issue is having a GI study. Constipation due to gall bladder not functioning since September-October 2022. Not taking medications, but using metamucil. Having small stools, type 5. Bowel Movement Frequency Every other day having small stools (1 turd). [place] Stool Chart Type 1-7 5 Pelvic Clock Pelvic Clock 3-6 Tenderness Pelvic Clock 6-9 Tenderness Pelvic Clock 9-12 Tenderness Prolapse Cystocele Grade 1 Rectocele Grade 2 Prolapse Comments Stool felt in rectum extending into vaginal canal. Perineal Descent Resting Absent Bearing Absent Contraction Ability Voluntary Contraction Weak Voluntary Relaxation Weak Manual Muscle Testing Left 1 Manual Muscle Testing Right 0 Manual Muscle Testing Anterior 0 Manual Muscle Testing Posterior 0 Muscle Endurance (Seconds) 7 Number of Quick Contractions In 10 2 Seconds Comments Pelvic Floor Comments Small PF opening. PT-OP-J Posture/Palpation/Skin Start: 06/08/23 17:38 Freq: Status: Active Protocol: Document 09/03/23 08:17 LRN (Rec: 09/03/23 16:23 LRN [id number]) Palpation Assessment Location L lateral trunk at ribs Palpation Location ~ribs 8-10 lateral trunk region. Palpation Findings Tenderness Palpation Details Ache pain at ribs with light palpation, no sharp pain of bruising noted. PT-OP-K Range of Motion Start: 06/08/23 17:38 Freq: Status: Active Protocol: Document 09/10/23 08:17 LRN (Rec: 09/10/23 09:05 LRN [id number]) Hip Goniometric Range of Motion Hip Right Passive Testing Position Supine Internal Rotation 15 External Rotation 40 Left Passive Testing Position Supine Internal Rotation 30 External Rotation 50 PT-OP-M Strength Start: 06/08/23 17:38 Freq: Status: Active Protocol: Document 06/25/23 09:01 LRN (Rec: 06/25/23 10:27 LRN [id number]) Trunk Strength Trunk Manual Muscle Testing Core Stabilization Pt is not able to maintain core stability with MMT of hips. Hip Strength Hip Manual Muscle Testing Right Flexion (L2) 4 Good Extension (S1) 3 Fair Abduction 5 Normal Adduction 3- Fair- Left Flexion (L2) 4 Good Extension (S1) 3 Fair Abduction 5 Normal Adduction 2 Poor Comments Ext was not assessed due to pt kyphosis limiting prone lying . PT-OP-Q Treatments Start: 06/08/23 17:38 Freq: Status: Active Protocol: Document 09/10/23 08:17 LRN (Rec: 09/10/23 09:05 LRN [id number]) Therapeutic Exercises Supine Exercises Hip IR stretch Supine Exercise Name Piriformis stretch - knee to opp shoulder Side bilateral Reps/Minutes 11' Comments Extra time taken to deter max barrera stretch/position. Hip ER ROM taken. Hip ER Supine Exercise Name Fig 4 with bent knee Side bilateral Reps/Minutes 12' Comments Extra time taken to deter max barrera stretch/position. Hip ER ROM taken. Sitting Exercises Kegel w/ER Sitting Exercise Name Kegel w/ER (BKFO), focus on relaxation btn contractions. Equipment Used Lev 1 TBand Reps/Minutes 10 SH (actually longer than 10 sec) x 8 Comments Cued to hold through 3 breaths and hold ER or move knees in/ out for 10 secs Kegel w/IR of legs Sitting Exercise Name Kegel w/good posture/hips IR focus on relaxation btn contractions. Side bilateral Reps/Minutes 10 SH (actually longer than 10 sec) x 8 Comments Extra time taken to determine position for max contraction Self-Care/Home Management Treatment Education Patient Education Home Exercise Program Activities Self-Care/Home Management Activities Issued & reviewed HEP: Star w/joel BLAS, Star with BKFO/ TBand. Lev 1 TBand issued. PT-OP-T Assessment and Plan Start: 06/08/23 17:38 Freq: Status: Active Protocol: Document 09/10/23 08:17 LRN (Rec: 09/10/23 09:05 LRN [id number]) Physical Therapy Assessment Goals Four Impairment PF pain in 3-11 of PF clock with palpation Short Term Goal (STG) Pt will be educated in HEP of self PF stretch and hip stretches. 07/09/23: HEP: Happy Baby Pose (stretch at hip AD's first) 08/20/23: HEP: R hip IR, L hip ER stretches 09/10/23: Poor recall of hip stretches. STG Duration 4 wks-07/23/23 progressed (need Inde w/hip stretches) [facility] Goal (LTG) Pt will no longer have pain with internal palpation at the 3-11 PF clock. LTG Duration 12 wks-09/24/23 Three Impairment Urinary leakage with a strong urge. Short Term Goal (STG) Pt will be educated in urinary delay technique. 07/09/23: Pt educated in urinary delay technique. STG Duration 4 wks-07/23/23 (07/09/23: MET GOAL) [facility] Goal (LTG) Increase PF strength (Long hold 10 secs, Quick holds 5-6 in 10 secs) with pt able to maintain urinary continence in the presence of a strong urge . 08/27/23: Some days is good ( no leakage), some days not able to hold urine. 09/10/23: Pt not sure if she can hold her urine with a strong urge or not, not having that problem this week since her back has hurt. LTG Duration 12 wks-09/24/23 progress 04/11. Two Impairment Urinary leakage with gait with a strong urge. Short Term Goal (STG) Decrease need for use of urinary pad with decreased urinary leakage to decrease fear of not wearing a pad. 09/10/23: Not wearing pad for at least a week. STG Duration 6 wks-08/06/23 (09/10/23: MET GOAL) Business Systems Lead Goal (LTG) Pt will be able to ambulate outside of her house w/o urinary leakage. 09/10/23: Pt hasn't been outside her home due to back pain, but thinks she can w/o leaking. LTG Duration 12 wks-09/24/23 09/10/23: pt feels she might be able to when back better One Impairment Pt lacks an independent self care HEP. Short Term Goal (STG) Pt educated in proper transfers to lessen core abdominal pressure. STG Duration 2 wks-07/09/23 (08/13/23: MET GOAL) Business Systems Lead Goal (LTG) Pt will be independent in a self care HEP for PF ex's (PF stretches and proper contractions) to prevent urinary leakage, and hip mobility stretches/ strengthening. 07/09/23: HEP: Happy Baby Pose (stretch at hip AD's first). 08/02/23: Educ Self Bowel Stim massage, HEP: Hip ADD stretch (sup FROG, Straight legs) 08/20/23: HEP: R hip IR, L hip ER stretches 09/10/23: HEP: Kegel w/joel AD, Kegel with BKFO/TBand. Lev 1 TBand issued. LTG Duration 2 wks-07/09/23 progressed Assessment Summary Assessment Pt with urinary urge incontinence symptoms due to PF and surrounding tissue ( hips, abdomen) tightness and PF pain at 3-11 of PF clock. R hip rot ROM is worse, L hip remains mostly the same. She is not having urinary leakage and hasn't worn a pad inside her home for a week or so, but wears one outside of home just in case. Pt back improved, she is able to tolerate supine and unsupported sitting for exer without increase in back pain. Pt has good recall of use of urge deference technique to delay urination with an urge. Defer manual for soft tissue (bladder/urachus) mobility due to back pain from fall. Physical Therapy Plan Frequency and Duration Frequency of Treatment 1x/Week Duration of treatment (weeks) 12 Plan of Care Start Date 06/25/23 Plan of Care End Date 09/24/23 Next Visit Focus/Plan Next Note Type Progress Note Next Visit Plan New POC or DC. Note: Supine positioning barrera if using pillows to support hump. Next: Assess response to use of urge deference technique for limiting trigger response (water on or with hands in water). Review again: moving in bed using breathwork and core/PF stabilization for proper abdominal pressure system. Review HEP hip stretches. Preferrably not in supine: PF strengthening. Ex: Hip AD w/stretch, ?hip ext strengthening, core stab ( rot), improve hip mobility (AB frannie, IR R>L, ER L>R), improve abdominal. Training in proper Kegel without use of substitute muscles, if needed core pressure mgmt (reduction of intra-abdominal pressure & proper proper breathing with transfers and body mechanics. POC: Pt education, Manual therapy (stretch hip AD & PF). Therapeutic Exercises, Therapeutic Activities, Neuromuscular Reeducation
--- NOTE | 2023-09-17 17:07 | PT.OTN ---
Current Diagnoses Constipation, unspecified (09/17/23) Stiffness of unspecified hip, not elsewhere classified (09/17/23) Muscle weakness (generalized) (09/17/23) Other specified disorders of muscle (09/17/23) Pelvic and perineal pain (09/17/23) Physical Therapy Treatment Note PT-OP-A Visit Information Start: 06/08/23 17:38 Freq: Status: Active Protocol: Document 09/17/23 16:40 LRN (Rec: 09/17/23 17:07 LRN [id number]) Out-Patient Physical Therapy Visit Information Visit Information Visit Type Treatment Note Visit Start Time 08:17 Visit Stop Time 08:58 Visit Number 9 Evaluation Information Evaluation Date 06/25/23 Precautions Precautions Reported PMH: Arthritis, osteoporosis; history of falls close to yearly & lives independently (fallen down stairs 1x backward and backward at a sink causing R body pain, neuropathy of R hand/foot PT-OP-B Current Condition Start: 06/08/23 17:38 Freq: Status: Active Protocol: Document 06/25/23 09:01 LRN (Rec: 06/25/23 10:27 LRN [id number]) Current Condition History of Current Condition Onset Date Last 3 yrs. Current Complaints Loss of urinary control with sudden onset of urgency. History of Current Condition Urinary leakage w/laughing or running water since 30's. Not able to hold urine as a teenager with her feet in cold water. Prior to urgency, pt was able to walk around town without urinary pads and didn' t have urgency. Worsened in urgency the last 2-3 yrs along with peripheral neuropathy of the feet. Can control her urine a little, but with an urge can't hold her urine. Sitting on toilet can't shut off urine flow, but can slow it. 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 States she has been referred to OBGyn, but is not sure. Prior Treatments and Tests None. States she has done PF ex's off the internet that seem to have been helpful. Developmental History Developmental History 5 children, 4 vaginal births with last a . No complications. Treatment Goals Patient/Caregiver Goals Pt goals is 1) Be the best she can be so that she can be ambulatory w/o leakage and not to fear that she doesn't have to wear a pad, for as long as she can, 2) Exercise program to prevent urinary leakage. Personal Factors Other Personal Factors That May Effect Current GI dysfunction (gall Therapy/Recovery bladder) w/constipation, reportedly short LLE and smaller girth, Osteoporosis, neuropathy of R foot/hand, fall history, lives alone. PT-OP-C Subjective Start: 06/08/23 17:38 Freq: Status: Active Protocol: Document 09/17/23 16:40 LRN (Rec: 09/17/23 17:07 LRN [id number]) OP-PT Subjective Patient Comments Patient Comments States she feels she is ready to be discharged from therapy because she can do her ex's and she knows where they are. She feels she has learned a lot and is not really having urinary leakage unless she has a strong urge. Doesn't leak if she doesn't drink. Hasn' t walked outside her home much , but notes she doesn't have urinary leakage walking to PT. Patient Questionnaires Pelvic Pain and Urgency/Frequency Patient Symptom Scale Pelvic Pain Score 6 PT-OP-I Pelvic Floor Start: 06/08/23 17:38 Freq: Status: Active Protocol: Document 06/25/23 09:01 LRN (Rec: 06/25/23 10:27 LRN [id number]) Pelvic Floor Assessment Urine Urinary Symptoms Urge Sensation Leakage Size Medium Leakage Cause Cough,Sneeze,Urge Other Leakage Causes Triggers: walking to front door, water running. Leaks Per Day 3-4 Bowel Bowel Symptoms Constipation Other Bowel Symptoms Constipation since teen, but due to gall bladder issue is having a GI study. Constipation due to gall bladder not functioning since September-October 2022. Not taking medications, but using metamucil. Having small stools, type 5. Bowel Movement Frequency Every other day having small stools (1 turd). [place] Stool Chart Type 1-7 5 Pelvic Clock Pelvic Clock 3-6 Tenderness Pelvic Clock 6-9 Tenderness Pelvic Clock 9-12 Tenderness Prolapse Cystocele Grade 1 Rectocele Grade 2 Prolapse Comments Stool felt in rectum extending into vaginal canal. Perineal Descent Resting Absent Bearing Absent Contraction Ability Voluntary Contraction Weak Voluntary Relaxation Weak Manual Muscle Testing Left 1 Manual Muscle Testing Right 0 Manual Muscle Testing Anterior 0 Manual Muscle Testing Posterior 0 Muscle Endurance (Seconds) 7 Number of Quick Contractions In 10 2 Seconds Comments Pelvic Floor Comments Small PF opening. PT-OP-J Posture/Palpation/Skin Start: 06/08/23 17:38 Freq: Status: Active Protocol: Document 09/03/23 08:17 LRN (Rec: 09/03/23 16:23 LRN [id number]) Palpation Assessment Location L lateral trunk at ribs Palpation Location ~ribs 8-10 lateral trunk region. Palpation Findings Tenderness Palpation Details Ache pain at ribs with light palpation, no sharp pain of bruising noted. PT-OP-K Range of Motion Start: 06/08/23 17:38 Freq: Status: Active Protocol: Document 09/10/23 08:17 LRN (Rec: 09/10/23 09:05 LRN [id number]) Hip Goniometric Range of Motion Hip Right Passive Testing Position Supine Internal Rotation 15 External Rotation 40 Left Passive Testing Position Supine Internal Rotation 30 External Rotation 50 PT-OP-M Strength Start: 06/08/23 17:38 Freq: Status: Active Protocol: Document 06/25/23 09:01 LRN (Rec: 06/25/23 10:27 LRN [id number]) Trunk Strength Trunk Manual Muscle Testing Core Stabilization Pt is not able to maintain core stability with MMT of hips. Hip Strength Hip Manual Muscle Testing Right Flexion (L2) 4 Good Extension (S1) 3 Fair Abduction 5 Normal Adduction 3- Fair- Left Flexion (L2) 4 Good Extension (S1) 3 Fair Abduction 5 Normal Adduction 2 Poor Comments Ext was not assessed due to pt kyphosis limiting prone lying . PT-OP-Q Treatments Start: 06/08/23 17:38 Freq: Status: Active Protocol: Document 09/17/23 16:40 LRN (Rec: 09/17/23 17:07 LRN [id number]) Therapeutic Exercises Supine Exercises Hip IR stretch Supine Exercise Name Piriformis stretch - knee to opp shoulder Side bilateral Reps/Minutes 8' Comments Extra time taken to deter max barrera stretch/position. Hip ER Supine Exercise Name Fig 4 with bent knee Side bilateral Reps/Minutes 6' Comments Extra time taken to deter max barrera stretch/position. Happy Baby Pose Supine Exercise Name Happy Baby Pose Reps/Minutes 1' x 2 Comments Extra time taken for repositioning of hands for stretch Sitting Exercises Kegel w/ER Sitting Exercise Name Kegel w/ER (BKFO), focus on relaxation btn contractions. Equipment Used Lev 1 TBand Reps/Minutes 5' Comments Cued to hold through 3 breaths and hold ER or move knees in/ out for 10 secs Kegel w/IR of legs Sitting Exercise Name Kegel w/good posture/hips IR focus on relaxation btn contractions. Side bilateral Reps/Minutes 5' Comments Extra time taken to determine position for max contraction Deep Breathing Sitting Exercise Name Deep Breathing Reps/Minutes 10x Comments VCs to slow breath and open abdomen Long leg hip AD stretch Sitting Exercise Name Long leg hip AD stretch Side bilateral Reps/Minutes 9' Comments VC's for posture and positioning. Other Exercises Core pressure management Other Exercise Name Brief review of core pressure mgmt Equipment Used Encouraged pt not to breathhold Reps/Minutes 3' Comments Encouraged pt to not stress over coordination of breathing PT-OP-T Assessment and Plan Start: 06/08/23 17:38 Freq: Status: Active Protocol: Document 09/17/23 16:40 LRN (Rec: 09/17/23 17:07 LRN [id number]) Physical Therapy Assessment Goals Four Impairment PF pain in 3-11 of PF clock with palpation Short Term Goal (STG) Pt will be educated in HEP of self PF stretch and hip stretches. 07/09/23: HEP: Happy Baby Pose (stretch at hip AD's first) 08/20/23: HEP: R hip IR, L hip ER stretches 09/10/23: Poor recall of hip stretches. 09/17/23; Feels she has her handouts and knows where they are, so she can do the stretches when motivated to stretch. STG Duration 4 wks-07/23/23 (09/17/23: MET GOAL) Half-Way Goal (LTG) Pt will no longer have pain with internal palpation at the 3-11 PF clock. LTG Duration 12 wks-09/24/23 (09/17/23: Not assessed at pt request) Three Impairment Urinary leakage with a strong urge. Short Term Goal (STG) Pt will be educated in urinary delay technique. 07/09/23: Pt educated in urinary delay technique. STG Duration 4 wks-07/23/23 (07/09/23: MET GOAL) Half-Way Goal (LTG) Increase PF strength (Long hold 10 secs, Quick holds 5-6 in 10 secs) with pt able to maintain urinary continence in the presence of a strong urge . 08/27/23: Some days is good ( no leakage), some days not able to hold urine. 09/10/23: Pt not sure if she can hold her urine with a strong urge or not, not having that problem this week since her back has hurt. 09/17/23: Pt feels she can hold her urine when at home with an urge using the delay technique . Reports not having a problem with urinary leakage when at home, but might leak with a strong urge. LTG Duration 12 wks-09/24/23 (09/17/23: NOT MET GOAL, pt not sure if goal met) Two Impairment Urinary leakage with gait with a strong urge. Short Term Goal (STG) Decrease need for use of urinary pad with decreased urinary leakage to decrease fear of not wearing a pad. 09/10/23: Not wearing pad for at least a week. STG Duration 6 wks-08/06/23 (09/10/23: MET GOAL) Half-Way Goal (LTG) Pt will be able to ambulate outside of her house w/o urinary leakage. 09/10/23: Pt hasn't been outside her home due to back pain, but thinks she can w/o leaking. 09/17/23: Not leaking but also not drinking. LTG Duration 12 wks-09/24/23 (09/17/23: ?GOAL MET) One Impairment Pt lacks an independent self care HEP. Short Term Goal (STG) Pt educated in proper transfers to lessen core abdominal pressure. STG Duration 2 wks-07/09/23 (08/13/23: MET GOAL) Warehouse Shift Supervisor Goal (LTG) Pt will be independent in a self care HEP for PF ex's (PF stretches and proper contractions) to prevent urinary leakage, and hip mobility stretches/ strengthening. 07/09/23: HEP: Happy Baby Pose (stretch at hip AD's first). 08/02/23: Educ Self Bowel Stim massage, HEP: Hip ADD stretch (sup FROG, Straight legs) 08/20/23: HEP: R hip IR, L hip ER stretches 09/10/23: HEP: Star w/joel AD, Star with BKFO/TBand. Lev 1 TBand issued. LTG Duration 2 wks-07/09/23 (09/17/23: MET GOAL) Assessment Summary Assessment Pt is an 88 yo female who was being seen for urinary urge incontinence symptoms due to PF and surrounding tissue ( hips, abdomen) tightness and PF pain at 3-11 of PF clock. The pt did not want to participate in a final PF pain internal assessment due to personal reasons. She felt she has gained a lot from therapy and feels now able to use methods learned to make it to the bathroom when she has a strong urge when home. She is not confident to go without pads for protection but feels she doesn't leak at home. She has not been outside of her home much; therefore doesn 't know if is continent outside of her home, but also stated she wasn't leaking outside her home. Per Pelvic Pain and Urgency /Frequency Symptom Scale, pt shows improvement with a lessening of score form 10 to 6. The pt has a HEP of strengthening and stretching ex's and demonstrates fair knowledge of her ex's, but she feels confident to continue on her own for now; therefore the pt is being discharged to her independent self care HEP today. Physical Therapy Plan Discharge Physical Therapy Discharge Reasons Patient Request Discharge Comments I would be more than happy to work with this pleasant individual again. Thank you for your referral.
== END 2023-09-28 08:01 | disposition home or self-care (01) ==
LOC: PHYS 08:15
PROVIDERS: Family Provider Student in an Organized Health Care Education/Training Program; PCP Student in an Organized Health Care Education/Training Program; Referring Provider Student in an Organized Health Care Education/Training Program; Visit Provider Student in an Organized Health Care Education/Training Program
DX: M62.89 Other specified disorders of muscle (principal); M62.81 Muscle weakness (generalized); M25.659 Stiffness of unspecified hip, not elsewhere classified; R10.2 Pelvic and perineal pain; K59.00 Constipation, unspecified
CPT/HCPCS: 97110; 97112; 97140; 97162; 97530; 97535

== ENCOUNTER → 2024-02-24 18:46 | Outpatient (CLI) | payer MEDICARE, MEDICAID, SELFPAY ==
[2024-02-24 19:46] LABS: Influenza A - CEPHEID Flu A NEGATIVE (NEGATIVE); Influenza B - CEPHEID Flu B NEGATIVE (NEGATIVE); Respiratory Syncytial Virus Negative (Negative)
[2024-02-24 19:59] LABS: COVID-19 CEPHEID 4-PLEX PCR POSITIVE (Negative)
== END ==
PROVIDERS: Family Provider Student in an Organized Health Care Education/Training Program; PCP Nurse Practitioner Family; Visit Provider Nurse Practitioner Family
DX: R05.1 Acute cough (principal)
CPT/HCPCS: 0241U

== ENCOUNTER → 2024-09-14 08:40 | Outpatient (CLI) | payer MEDICARE, MEDICAID, SELFPAY ==
--- NOTE | 2024-09-14 08:41 | DI.US.S_ITS ---
PROCEDURE: US ABDOMEN LIMITED INDICATIONS: RECURRENT GALLSTONES TECHNIQUE: Real-time scanning was performed of the abdominal and retroperitoneal organs, with image documentation. COMPARISON: None. FINDINGS: Liver: Liver is normal in size and homogeneous in echotexture. Gallbladder: Multiple gallstones gallbladder wall is severely thickened to 14.6 millimeters. Biliary ducts: Intrahepatic bile ducts are non-dilated. Extrahepatic bile duct caliber measures 7.3 mm. Normal is 6-7 mm or less in diameter, or 10 mm or less post-cholecystectomy. Pancreas: Visualized portions of the pancreas are sonographically normal. Miscellaneous: No free abdominal fluid. IMPRESSION: Cholelithiasis with gallbladder wall thickening highly suspicious for cholecystitis. Slight biliary dilatation with common hepatic duct measuring 7.3 millimeters. Recommend correlation with clinical and laboratory data to exclude biliary obstruction. If there is clinical concern for bowel obstruction consider MRCP for additional evaluation. Dictated by: Germania Novak MD, PhD on 09/14/2024 at 9:32 Approved by: Germania Novak MD, PhD on 09/14/2024 at 9:34
== END ==
PROVIDERS: Family Provider Student in an Organized Health Care Education/Training Program; PCP Nurse Practitioner Family; Referring Provider Nurse Practitioner Family; Visit Provider Nurse Practitioner Family
DX: K80.10 Calculus of gallbladder with chronic cholecystitis without obstruction (principal); K80.80 Other cholelithiasis without obstruction
CPT/HCPCS: 76705

== ENCOUNTER 2024-09-14 09:23 | Observation (INO) | payer MEDICARE, MEDICAID, SELFPAY ==
[2024-09-14 09:35] VITALS: BP 142/87; PULSE 68; RESP 13; TEMP 36.7; O2SAT 98; BMI 19.9
--- NOTE | 2024-09-14 10:20 | ED.RECABL ---
HPI - Recheck/Abnormal Lab/Rx General Chief Complaint: Recheck/Abnormal Lab/Rx Stated Complaint: sent by DI from pcp, worsening gall gallbladder Time Seen by Provider: 09/14/24 09:29 Source: patient Mode of arrival: Ambulatory History of Present Illness HPI narrative: Patient here from diagnostic imaging for outpatient gallbladder ultrasound that is concerning for acute cholecystitis. Patient is is awake alert or x4. She states she has been dealing with gallbladder pain for years but worse in the last couple of weeks. Primary care ordered outpatient gallbladder ultrasound for today. Pain is controlled at this time. General surgeon has reviewed ultrasound and waiting for laboratory studies, dr stephen. Patient has been NPO since 2:00 p.m. yesterday. Related Data Home Medications Medication Instructions Recorded Confirmed Aller Clear 1 drp EYE-RIGHT DAILY 01/28/21 09/14/24 Alpha Lipoic Acid 1 tab PO DAILY 01/28/21 09/14/24 Maq. L-Threonate 1 tab PO DAILY 01/28/21 09/14/24 Vitamin D3 1 cap PO DAILY 01/28/21 09/14/24 biotin 1 mg capsule 1 mg PO DAILY 04/30/23 09/14/24 digestive enzymes 1 cap PO DAILY 04/30/23 09/14/24 thiamine HCl (vitamin B1) 100 mg 100 mg PO DAILY 04/30/23 09/14/24 tablet vitamin E (dl, acetate) 180 mg 180 mg PO DAILY 04/30/23 09/14/24 (400 unit) capsule Previous Rx's Medication Instructions Recorded DISABLED PARKING PERMIT #1 ea 02/08/24 Allergies Allergy/AdvReac Type Severity Reaction Status Date / Time No Known Drug Allergies Allergy Verified 09/14/24 09:34 Review of Systems Review of Systems Narrative: GENERAL: Negative chills, fatigue, malaise, fever, sweats. HEENT: Negative sinus pain, ear pain, sore throat RESPIRATORY: Negative dyspnea, cough CARDIOVASCULAR: Negative chest pain, palpitations GASTROINTESTINAL: Negative nausea, vomiting, positive abdominal pain : Negative dysuria, frequency, hematuria MUSCULOSKELETAL: Negative muscle or bony pain SKIN: Negative rash, skin lesions NEUROLOGIC: Negative weakness, numbness ROS Unobtainable: All systems reviewed & are unremarkable except as noted in HPI and below Patient History Medical History Actinic keratoses Anorexia Anxiety Balance problem Bilateral leg numbness Bilateral lower extremity edema Cervical somatic dysfunction Chest pain on exertion Chronic bilateral low back pain without sciatica Chronic pain in left foot Chronic pain in left foot Constipation Cranial somatic dysfunction Gall bladder stones History of calculus of gallbladder Incomplete bladder emptying Insomnia Lower urinary tract symptoms (LUTS) Lumbar region somatic dysfunction Major depressive disorder Memory problem Microscopic hematuria Nausea and vomiting in adult patient Neck stiffness Orthopnea Osteoporosis Pelvic somatic dysfunction Physical deconditioning Physician orders for life-sustaining treatment (POLST) form indicates patient wish for [id number] status Postmenopausal atrophic vaginitis Right hip pain Right leg weakness RUQ abdominal tenderness Sacral region somatic dysfunction Seborrheic keratoses Segmental and somatic dysfunction of abdomen and other regions Segmental and somatic dysfunction of rib cage Short leg syndrome, left, acquired Somatic dysfunction of lower extremity Spell of dizziness Thoracic region somatic dysfunction Upper back pain, chronic Upper extremity somatic dysfunction Urge incontinence of urine Urinary retention Valgus deformity of right great toe Family History Mother Hyperlipidemia Hypertension Daughter Thyroid disease Kidney stones Social History marital status: number of children: 5 household members: none Smoking Status: Never smoker alcohol intake: current Smoking Status: Never smoker alcohol intake frequency: 0-2 drinks per day Alcohol type: hard liquor Exam Narrative Exam Narrative: GENERAL: in no distress, not toxic not dyspneic HEAD: Normocephalic. EYES: Pupils equal round ENT: Mucous membranes moist. NECK: Trachea midline. CARDIOVASCULAR: Regular rate and rhythm RESPIRATORY: Clear to auscultation. Breath sounds equal bilaterally. No wheezes, rales, or rhonchi. GASTROINTESTINAL: Abdomen soft, reproducible right upper quadrant tenderness, positive Ward's sign. No peritoneal signs no pain out of portion of the exam. Bowel sounds are present. No guarding no rebound. No CVA tenderness EXTREMITIES: No gross deformities. BACK: No flank tenderness. NEURO: AOx4. Clear speech SKIN: Warm and dry PSYCH: Not anxious, is cooperative Initial Vital Signs Initial Vital Signs: Vital Signs Temperature 98.0 F 09/14/24 09:35 Pulse Rate 68 09/14/24 09:35 Respiratory Rate 13 09/14/24 09:35 Blood Pressure 142/87 H 09/14/24 09:35 Pulse Oximetry 98 09/14/24 09:35 Oxygen Delivery Method Room Air 09/14/24 09:35 Course Orders Ordered: ED Orders 09/14/24 10:21 Complete Blood Count AUTO DIFF Stat Comprehensive Metabolic Panel Stat Lipase Stat PT [Prothrombin Time INR] Stat PTT Partial Thromboplastin Markus Stat 09/14/24 10:22 EKG-12 Lead Stat Sodium Chloride (Normal Saline 0.9%) 1,000 mls @ 100 mls/hr IV CONT FELIX Last Admin: 09/14/24 14:07 Dose: 100 mls/hr Documented By: ZOHAIB Morphine Sulfate (Morphine 2 Mg/Ml Inj) 2 mg IV Q2HR PRN PRN Reason: Pain, Moderate (4-6) Naloxone HCl (Naloxone 0.4 Mg/Ml Vial) 0.2 mg IV Q2MIN PRN PRN Reason: Opiate Reversal Discontinued Medications Piperacillin Sod/Tazobactam (Sod 4.5 gm/ Sodium Chloride) 100 mls @ 200 mls/hr IV NOW ONE Stop: 09/14/24 12:23 Last Infusion: 09/14/24 14:07 Dose: Infused Documented By: Admin: 09/14/24 13:06 Dose: 200 mls/hr Documented By: TARIQ Ondansetron HCl (Ondansetron 4 Mg/2 Ml Inj) 4 mg IV NOW PRN PRN Reason: Nausea And Vomiting Ondansetron HCl (Ondansetron 4 Mg Odt) 4 mg PO NOW PRN PRN Reason: Nausea And Vomiting Vital Signs Vital signs: Vital Signs - 8 hr 09/14/24 09:35 Temperature 98.0 F Pulse Rate 68 Respiratory Rate 13 Blood Pressure 142/87 H Pulse Oximetry 98 Oxygen Delivery Method Room Air MDM - Recheck/Abnormal Lab/Rx Lab Data 09/14/24 10:21 09/14/24 10:21 Labs: Lab Results 09/14/24 Range/Units 10:21 WBC 3.4 L (4.5-11.0) X10^3/uL RBC 4.43 (4.0-5.2) X10^6/uL Hgb 12.0 (12.0-16.0) g/dL Hct 37.1 (36-46) % MCV 83.7 (80-100) fL MCH 27.2 (26-34) PG MCHC 32.5 (30-36) % RDW 15.0 H (11.6-14.8) % Plt Count 191 (150-400) X10^3/uL Neut % (Auto) 68.1 (50-75) % Lymph % (Auto) 17.4 L (25-40) % [place] % (Auto) 10.5 (3-14) % Eos % (Auto) 3.2 (2-4) % Baso % (Auto) 0.8 (0-2) % Neut # (Auto) 2300 (0866-6508) /uL Lymph # (Auto) 600 L (4890-6239) /uL [place] # (Auto) 400 (0-900) /uL Eos # (Auto) 100 (0-450) /uL Baso # (Auto) 0 (0-100) /uL PT 12.2 (9.4-12.5) SECONDS INR 1.1 (0.9-1.3) APTT 35 (25.1-36.5) SECONDS Sodium 141 (137-145) mmol/L Potassium 4.0 (3.4-5.1) mmol/L Chloride 106 (98-107) mmol/L Carbon Dioxide 26 (22-32) mmol/L BUN 23 H (7-17) mg/dL Creatinine 0.93 (0.52-1.04) mg/dL Estimated GFR 59 L (>60) mL/min BUN/Creatinine Ratio 24.7 H (6-22) Glucose 89 (80-110) mg/dL Calcium 9.5 (8.4-10.2) mg/dL Total Bilirubin 1.1 (0.2-1.3) mg/dL AST 41 H (14-36) IU/L ALT 27 (<35) IU/L Alkaline Phosphatase 69 (38-126) U/L Total Protein 7.8 (6.3-8.2) g/dL Albumin 4.4 (3.5-5.0) g/dL Globulin 3.4 (1.7-4.1) g/dL Albumin/Globulin Ratio 1.3 (1.0-2.8) Lipase 57 (23-300) U/L Imaging Data US - abdomen: Radiologist's Impression: [address] [address] Ultrasound Report Signed Patient: Sarah Winters [place] MR#: [id number] : 1935 Acct:[id number] Age/Sex: 89 / F Date of Service: 09/14/24 Loc: US Accession Number: [id number] Procedure: US abdomen limited Ordering Provider: Stephanie Arriaga-BC PROCEDURE: US ABDOMEN LIMITED INDICATIONS: RECURRENT GALLSTONES TECHNIQUE: Real-time scanning was performed of the abdominal and retroperitoneal organs, with image documentation. COMPARISON: None. FINDINGS: Liver: Liver is normal in size and homogeneous in echotexture. Gallbladder: Multiple gallstones gallbladder wall is severely thickened to 14.6 millimeters. Biliary ducts: Intrahepatic bile ducts are non-dilated. Extrahepatic bile duct caliber measures 7.3 mm. Normal is 6-7 mm or less in diameter, or 10 mm or less post-cholecystectomy. Pancreas: Visualized portions of the pancreas are sonographically normal. Miscellaneous: No free abdominal fluid. IMPRESSION: Cholelithiasis with gallbladder wall thickening highly suspicious for cholecystitis. Slight biliary dilatation with common hepatic duct measuring 7.3 millimeters. Recommend correlation with clinical and laboratory data to exclude biliary obstruction. If there is clinical concern for bowel obstruction consider MRCP for additional evaluation. Dictated by: Germania Novak MD, PhD on 09/14/2024 at 9:32 Approved by: Germania Novak MD, PhD on 09/14/2024 at 9:34 [facility] Narrative Medical decision making narrative: Patient here from diagnostic imaging for outpatient gallbladder ultrasound that is concerning for acute cholecystitis. Patient is is awake alert or x4. She states she has been dealing with gallbladder pain for years but worse in the last couple of weeks. Primary care ordered outpatient gallbladder ultrasound for today. Pain is controlled at this time. General surgeon has reviewed ultrasound and waiting for laboratory studies, dr stephen. Patient has been NPO since 2:00 p.m. yesterday. After history and exam NPO CBC CMP lipase PT INR PTT, general surgery consult, possible admission EKG [facility] Medical records reviewed: No recent visit for this complaint Differential considered: Includes but not limited to cholelithiasis choledocholithiasis cholecystitis Lab Test results independently reviewed as above. Pertinent findings: WBC 3.4 hemoglobin 12.0 INR 1.1 sodium 141 potassium 4.0 BUN 23 creatinine 0.93 AST 41 ALT 27 Independently reviewed EKG sinus rhythm rate [address] elevation or depression Imaging studies independently reviewed: Ultrasound gallbladder concerning for cholecystitis Consultations: Reviewed ultrasound results with Dr Glass, she will follow in consult. Admit to hospitalist. 12:[address] Mendez, hospitalist, who will see patient to evaluate for admission Treatments: Zosyn Re-evaluations: 12:21 p.m. Updated patient results. Awaiting call back from general surgeon, results could be acute cholecystitis which would require possible surgery. 12:50 p.m.. Updated patient my discussion with General surgery, she does wants the surgery. DNR form was reviewed with patient and daughter at bedside. Patient states she would like DNR DNI with selective treatments. Not not comfort measures. She would like to have her gallbladder removed Discussion: Appropriate for admission. General surgeon has seen ultrasound findings., she will see patient in consult, admit to hospitalist. Zosyn has been started. Diagnosis: Acute cholecystitis Discharge Plan Departure Patient Disposition: Admitted as Observation Clinical Impression: Acute calculous cholecystitis Admit Date/Time: 09/14/24 12:45 Admit Provider: Jackson Mendez
[2024-09-14 10:28] LABS: Add Manual Diff / Slide Review NO; Basophils Absolute Auto 0 /uL (0-100); Basophils Percent Auto 0.8 % (0-2); Eosinophils Absolute Auto 100 /uL (0-450); Eosinophils Percent Auto 3.2 % (2-4); Hematocrit 37.1 % (36-46); Lymphocytes Absolute Auto 600 /uL (1100-4500); Lymphocytes Percent Auto 17.4 % (25-40); Mean Corpuscular HGB Conc 32.5 % (30-36); Mean Corpuscular Hemoglobin 27.2 PG (26-34); Mean Corpuscular Volume 83.7 fL (80-100); Monocytes Absolute Auto 400 /uL (0-900); Monocytes Percent Auto 10.5 % (3-14); Neutrophils Absolute Auto 2300 /uL (1500-7000); Neutrophils Percent Auto 68.1 % (50-75); Platelet Count 191 X10^3/uL (150-400); Red Blood Cell Count 4.43 X10^6/uL (4.0-5.2); White Blood Cell Count 3.4 X10^3/uL (4.5-11.0)
--- NOTE | 2024-09-14 10:31 | EKG_ITS ---
[address] [address] Test Date: 2024-09-14 Pat Name: Sarah Winters Department: [facility] Room: Gender: Female Continuity Director: JACKELIN : 1935 Requested By: Order Number: [id number] Reading MD: Jackson Mendez Measurements Intervals [place] Rate: 64 P: 53 GA: 154 QRS: -15 QRSD: 88 T: 21 QT: 414 QTc: 427 Interpretive Statements Sinus rhythm with occasional premature ventricular complexes and premature atrial complexes Minimal voltage criteria for LVH, may be normal variant ( [place] product ) Anterior infarct , age undetermined Electronically Signed On 09-17-2024 18:55:36 PST by Jackson Mendez
[2024-09-14 10:40] LABS: INR 1.1 (0.9-1.3); Prothrombin Time 12.2 SECONDS (9.4-12.5)
[2024-09-14 10:43] LABS: PTT Partial Thromboplastin Tim 35 SECONDS (25.1-36.5)
[2024-09-14 10:44] LABS: Alanine Aminotransferase 27 IU/L (<35); Albumin 4.4 g/dL (3.5-5.0); Albumin Globulin Ratio 1.3 (1.0-2.8); Alkaline Phosphatase 69 U/L (38-126); Aspartate Aminotransferase 41 IU/L (14-36); BUN Creatinine Ratio 24.7 (6-22); Bilirubin Total 1.1 mg/dL (0.2-1.3); Blood Urea Nitrogen 23 mg/dL (7-17); Calcium 9.5 mg/dL (8.4-10.2); Carbon Dioxide 26 mmol/L (22-32); Chloride 106 mmol/L (98-107); Estimated Glomerular Filt Rate 59 mL/min (>60); Globulin 3.4 g/dL (1.7-4.1); Glucose 89 mg/dL (80-110); HEMOLYSIS < 15 (0-50); Lipase 57 U/L (23-300); Sodium 141 mmol/L (137-145); Total Protein 7.8 g/dL (6.3-8.2)
[2024-09-14] MEDS: PIPERACILLIN/TAZO 4.5 GM in SODIUM CHLORIDE 0.9% 100 ML IV (13:06)
[2024-09-14 13:32] VITALS: O2SAT 97
[2024-09-14 13:33] VITALS: BMI 20.2
[2024-09-14 14:00] VITALS: BP 152/67; PULSE 65; RESP 16; TEMP 36.6; O2SAT 97
[2024-09-14] MEDS: SODIUM CHLORIDE 0.9% 1,000 ML 100 ML IV ×2 (14:07→23:57)
--- NOTE | 2024-09-14 15:12 | P.CONS_ITS ---
History of Present Illness Consult details Date Patient Seen: 09/14/24 Chief complaint: sent by TRI from pcp, worsening gall gallbladder Reason for consult: Eval for acute cholecystitis Narrative: This is a 89-year-old woman who presented to the hospital for outpatient right upper quadrant ultrasound due to a 2 year history of persistent right upper quadrant abdominal pain. Patient states that she has been seen multiple times for this pain and states that nothing has been done prior to this. Upon presenting to the hospital for the ultrasound, patient was found to have a significantly distended gallbladder with thickening of the wall concerning for acute cholecystitis. Patient was then moved to the emergency department. She underwent a full set of labs which demonstrated an elevated total bilirubin to 1.5. The rest of her labs were normal except for a leukopenia. Patient says that the pain is associated with back pain, neck pain, right shoulder pain and radiates to the right ribcage. Patient states that she is unable to lay on this side secondary to pain. Denies any alleviating factors. Patient says that eating has made it worse. Patient says that she has altered her diet in the past in order to minimize the pain but since then she has continued to have ongoing pain. She denies any changes in her vision, hearing, fevers, chills, chest pain, shortness of breath, swelling of her arms legs or bilateral lower extremities, dysuria, hematuria and any other symptoms. Meds Home Medications and Allergies Home Medications Medication Instructions Recorded Confirmed Type Aller Clear 1 drp EYE-RIGHT DAILY 01/28/21 09/14/24 History Alpha Lipoic Acid 1 tab PO DAILY 01/28/21 09/14/24 History Maq. L-Threonate 1 tab PO DAILY 01/28/21 09/14/24 History Vitamin D3 1 cap PO DAILY 01/28/21 09/14/24 History biotin 1 mg capsule 1 mg PO DAILY 04/30/23 09/14/24 History digestive enzymes 1 cap PO DAILY 04/30/23 09/14/24 History thiamine HCl (vitamin B1) 100 mg 100 mg PO DAILY 04/30/23 09/14/24 History tablet vitamin E (dl, acetate) 180 mg 180 mg PO DAILY 04/30/23 09/14/24 History (400 unit) capsule DISABLED PARKING PERMIT #1 ea 02/08/24 09/14/24 Rx Allergies Allergy/AdvReac Type Severity Reaction Status Date / Time No Known Drug Allergies Allergy Verified 09/14/24 09:34 Review of Systems Review of Systems ROS: Yes All systems reviewed with the patient and are negative except as otherwise documented Exam Vital Signs (past 8 hours): - 09/14/24 09:35 09/14/24 13:32 09/14/24 14:00 Temperature 98.0 F 97.9 F Pulse Rate 68 65 Respiratory Rate 13 16 Blood Pressure 142/87 H 152/67 H Pulse Oximetry 98 97 97 Oxygen Delivery Method Room Air Room Air Oxygen Flow Rate 0 Oxygen Delivery Method Room Air Oxygen Flow Rate 0 Const General: cooperative, healthy appearing, comfortable and well developed Nutritional Appearance: average body habitus HENPR Head: normal to inspection Ears: hearing grossly normal bilaterally Nose: external nose normal Eyes General: appearance normal, both eyes and all related structures Neck Neck: normal visual inspection Chest Chest: normal inspection of the chest Resp Effort & Inspection: normal respiratory effort, able to speak in complete sentences, normal respiratory pattern and not labored Cardio Rhythm: regular rhythm GI Inspection: distended Palpation: soft and tender (Mild epigastric/right upper quadrant abdominal pain) Percussion: normal to percussion Skin General: no rashes or lesions noted Neuro General: patient alert, patient awake and patient oriented x3 Extrem General: normal to inspection Psych Appearance: grossly normal and well kempt Mental Status: mental status grossly normal Objective Imaging US - abdomen: My impression: Possible acute versus chronic cholecystitis Radiologist's impression: [address] [address] Ultrasound Report Signed Patient: Sarah Winters MR#: [id number] : 1935 Acct:[id number] Age/Sex: 89 / F Date of Service: 09/14/24 Loc: US Accession Number: [id number] Procedure: US abdomen limited Ordering Provider: Stephanie Arriaga PROCEDURE: US ABDOMEN LIMITED INDICATIONS: RECURRENT GALLSTONES TECHNIQUE: Real-time scanning was performed of the abdominal and retroperitoneal organs, with image documentation. COMPARISON: None. FINDINGS: Liver: Liver is normal in size and homogeneous in echotexture. Gallbladder: Multiple gallstones gallbladder wall is severely thickened to 14.6 millimeters. Biliary ducts: Intrahepatic bile ducts are non-dilated. Extrahepatic bile duct caliber measures 7.3 mm. Normal is 6-7 mm or less in diameter, or 10 mm or less post-cholecystectomy. Pancreas: Visualized portions of the pancreas are sonographically normal. Miscellaneous: No free abdominal fluid. IMPRESSION: Cholelithiasis with gallbladder wall thickening highly suspicious for cholecystitis. Slight biliary dilatation with common hepatic duct measuring 7.3 millimeters. Recommend correlation with clinical and laboratory data to exclude biliary obstruction. If there is clinical concern for bowel obstruction consider MRCP for additional evaluation. Labs 09/14/24 10:21 09/14/24 10:21 Labs: Laboratory Results - last 24 hr 09/14/24 10:21 WBC 3.4 L RBC 4.43 Hgb 12.0 Hct 37.1 MCV 83.7 MCH 27.2 MCHC 32.5 RDW 15.0 H Plt Count 191 Neut % (Auto) 68.1 Lymph % (Auto) 17.4 L [place] % (Auto) 10.5 Eos % (Auto) 3.2 Baso % (Auto) 0.8 Neut # (Auto) 2300 Lymph # (Auto) 600 L [place] # (Auto) 400 Eos # (Auto) 100 Baso # (Auto) 0 PT 12.2 INR 1.1 APTT 35 Sodium 141 Potassium 4.0 Chloride 106 Carbon Dioxide 26 BUN 23 H Creatinine 0.93 Estimated GFR 59 L BUN/Creatinine Ratio 24.7 H Glucose 89 Calcium 9.5 Total Bilirubin 1.1 AST 41 H ALT 27 Alkaline Phosphatase 69 Total Protein 7.8 Albumin 4.4 Globulin 3.4 Albumin/Globulin Ratio 1.3 Lipase 57 PFSH Medical History Actinic keratoses Anorexia Anxiety Balance problem Bilateral leg numbness Bilateral lower extremity edema Cervical somatic dysfunction Chest pain on exertion Chronic bilateral low back pain without sciatica Chronic pain in left foot Chronic pain in left foot Constipation Cranial somatic dysfunction Gall bladder stones History of calculus of gallbladder Incomplete bladder emptying Insomnia Lower urinary tract symptoms (LUTS) Lumbar region somatic dysfunction Major depressive disorder Memory problem Microscopic hematuria Nausea and vomiting in adult patient Neck stiffness Orthopnea Osteoporosis Pelvic somatic dysfunction Physical deconditioning Physician orders for life-sustaining treatment (POLST) form indicates patient wish for co-ciq-yilepqwjgsj status Postmenopausal atrophic vaginitis Right hip pain Right leg weakness RUQ abdominal tenderness Sacral region somatic dysfunction Seborrheic keratoses Segmental and somatic dysfunction of abdomen and other regions Segmental and somatic dysfunction of rib cage Short leg syndrome, left, acquired Somatic dysfunction of lower extremity Spell of dizziness Thoracic region somatic dysfunction Upper back pain, chronic Upper extremity somatic dysfunction Urge incontinence of urine Urinary retention Valgus deformity of right great toe Family History Mother Hyperlipidemia Hypertension Daughter Thyroid disease Kidney stones Social History marital status: number of children: 5 household members: none Tobacco & Substance Use Smoking Status: Never smoker alcohol intake: current Assessment & Plan Assessment and plan (1) Acute calculous cholecystitis: Status: Acute (2) Gall bladder stones: Status: Acute Assessment & Plan narrative: This is a 89-year-old woman who presents to the hospital with likely acute cholecystitis versus chronic cholecystitis. Patient has had symptoms for almost 2 years at this time. Likely acute on chronic in nature. Patient would benefit from proceeding to the operating room for a laparoscopic cholecystectomy with intraoperative cholangiogram. The patient does have an elevated total bilirubin. This could be from possible compression of the bile duct secondary to the significantly distended gallbladder versus choledocholithiasis. We will perform a cholangiogram to confirm the diagnosis. -NPO, IV fluids, plan for surgery tomorrow September 15, 2024. -continue Zosyn -plan for advancement of diet postprocedure -patient will possibly need PT postprocedure. We will monitor for need -continue DVT prophylaxis -patient will likely remain hospitalized until /Wednesday Time-Based Coding :: Forty-five minutes spent with patient and on the chart (including review of chart, obtaining history, exam, reviewing outside data, placing orders, documenting exam and treatment plan, and counseling patient) on September 14, 2024 PROFEE Charge Codes Inpatient or Observation consultation: [id number]
--- NOTE | 2024-09-14 17:11 | P.HP_ITS ---
History of Present Illness History of Present Illness Date Patient Seen: 09/14/24 Time Patient Seen: 16:45 Chief complaint: sent by [facility] from pcp, worsening gall gallbladder Narrative: This is an 89-year-old female with no significant past medical history, on no chronic medications other than supplements who presented with worsening right upper quadrant pain over the past week. Patient states that she has been dealing with gallbladder pain since 2022, with near constant right upper quadrant, right lower quadrant, and right scapular pain which have varied over the course of the last couple of years. She has intermittent bloating after meals, but the pain is fairly constant and not necessarily related to food. Over the past week at his been worse, this time actually moving somewhat into her left scapula, with continued bloating. She had an ultrasound with her primary care provider which showed evidence of acute cholecystitis and she was referred to the emergency room. Patient was admitted to the medicine service with surgery plan for cholecystectomy. CBD was minimally dilated, Tbili was 1.5 2 days ago, 1.1 today, and lipase 57. The patient denies any chest pain, shortness on breath, dyspnea on exertion, or lower extremity edema. Other than her continued bloating and right upper quadrant pain she denies any medical problems. She lives alone, drives, and does all of her ADLs by herself without assistance. [facility] Medical History Actinic keratoses Anorexia Anxiety Balance problem Bilateral leg numbness Bilateral lower extremity edema Cervical somatic dysfunction Chest pain on exertion Chronic bilateral low back pain without sciatica Chronic pain in left foot Chronic pain in left foot Constipation Cranial somatic dysfunction Gall bladder stones History of calculus of gallbladder Incomplete bladder emptying Insomnia Lower urinary tract symptoms (LUTS) Lumbar region somatic dysfunction Major depressive disorder Memory problem Microscopic hematuria Nausea and vomiting in adult patient Neck stiffness Orthopnea Osteoporosis Pelvic somatic dysfunction Physical deconditioning Physician orders for life-sustaining treatment (POLST) form indicates patient wish for gb-oro-ntgbycgdexw status Postmenopausal atrophic vaginitis Right hip pain Right leg weakness RUQ abdominal tenderness Sacral region somatic dysfunction Seborrheic keratoses Segmental and somatic dysfunction of abdomen and other regions Segmental and somatic dysfunction of rib cage Short leg syndrome, left, acquired Somatic dysfunction of lower extremity Spell of dizziness Thoracic region somatic dysfunction Upper back pain, chronic Upper extremity somatic dysfunction Urge incontinence of urine Urinary retention Valgus deformity of right great toe Family History Mother Hyperlipidemia Hypertension Daughter Thyroid disease Kidney stones Social History marital status: number of children: 5 household members: none Smoking Status: Never smoker alcohol intake: current Meds Home Medications and Allergies Home Medications Medication Instructions Recorded Confirmed Type Aller Clear 1 drp EYE-RIGHT DAILY 01/28/21 09/14/24 History Alpha Lipoic Acid 1 tab PO DAILY 01/28/21 09/14/24 History Maq. L-Threonate 1 tab PO DAILY 01/28/21 09/14/24 History Vitamin D3 1 cap PO DAILY 01/28/21 09/14/24 History biotin 1 mg capsule 1 mg PO DAILY 04/30/23 09/14/24 History digestive enzymes 1 cap PO DAILY 04/30/23 09/14/24 History thiamine HCl (vitamin B1) 100 mg 100 mg PO DAILY 04/30/23 09/14/24 History tablet vitamin E (dl, acetate) 180 mg 180 mg PO DAILY 04/30/23 09/14/24 History (400 unit) capsule DISABLED P[place] #1 ea 02/08/24 09/14/24 Rx Allergies Allergy/AdvReac Type Severity Reaction Status Date / Time No Known Drug Allergies Allergy Verified 09/14/24 09:34 Review of Systems Review of Systems Narrative: All other systems reviewed with the patient and are negative unless otherwise stated. Exam Vital Signs (past 8 hours): - 09/14/24 09:35 09/14/24 12:50 09/14/24 13:32 Temperature 98.0 F Pulse Rate 68 Respiratory Rate 13 Blood Pressure 142/87 H Pulse Oximetry 98 97 Oxygen Delivery Method Room Air Room Air Room Air Oxygen Flow Rate 09/14/24 14:00 Temperature 97.9 F Pulse Rate 65 Respiratory Rate 16 Blood Pressure 152/67 H Pulse Oximetry 97 Oxygen Delivery Method Oxygen Flow Rate 0 Oxygen Delivery Method Room Air Oxygen Flow Rate 0 Narrative Exam Narrative: General:? Patient is well developed and well nourished, in no distress at this time. HEENT:? Normocephalic, atraumatic, extraocular muscles intact, oral pharynx is clear and mucous membranes are moist. Neck: supple and symmetric, trachea is midline, no cervical adenopathy. Negative for JVD Chest:? Normal AP diameter and contour without kyphoscoliosis, no tachypnea, equal chest rise bilaterally. Lungs:? CTA b/l no wheezing rhonchi or rales. Cardio:?RRR no m/r/g. Abdomen: S NT ND. No CVA tenderness. Musculoskeletal:? Muscle strength and tone are equal within normal limits, no deformity. Extremities: No edema or joint effusions. No cyanosis or clubbing. Skin:? Pale,? Warm to touch,dry and intact without rashes, ulcerations or petechiae.? Neuro:? Alert and orientated x3,? sensation to touch intact in all extremities, no gross deficits noted of cranial nerves. Psych:? Patient has a well-kept appearance, appropriate affect, mental status attitude thought context and judgment are appropriate for age. Objective ECG Impression: Sinus rhythm with sinus arrhythmia and occasional PAC, no significant ST or T- wave abnormalities indicative of ischemia. Imaging US - abdomen: Radiologist's impression: IMPRESSION: Cholelithiasis with gallbladder wall thickening highly suspicious for cholecystitis. Slight biliary dilatation with common hepatic duct measuring 7.3 millimeters. Recommend correlation with clinical and laboratory data to exclude biliary obstruction. If there is clinical concern for bowel obstruction consider MRCP for additional evaluation. Labs 09/14/24 10:21 09/14/24 10:21 Labs: Laboratory Results - last 24 hr 09/14/24 10:21 WBC 3.4 L RBC 4.43 Hgb 12.0 Hct 37.1 MCV 83.7 MCH 27.2 MCHC 32.5 RDW 15.0 H Plt Count 191 Neut % (Auto) 68.1 Lymph % (Auto) 17.4 L [place] % (Auto) 10.5 Eos % (Auto) 3.2 Baso % (Auto) 0.8 Neut # (Auto) 2300 Lymph # (Auto) 600 L [place] # (Auto) 400 Eos # (Auto) 100 Baso # (Auto) 0 PT 12.2 INR 1.1 APTT 35 Sodium 141 Potassium 4.0 Chloride 106 Carbon Dioxide 26 BUN 23 H Creatinine 0.93 Estimated GFR 59 L BUN/Creatinine Ratio 24.7 H Glucose 89 Calcium 9.5 Total Bilirubin 1.1 AST 41 H ALT 27 Alkaline Phosphatase 69 Total Protein 7.8 Albumin 4.4 Globulin 3.4 Albumin/Globulin Ratio 1.3 Lipase 57 Assessment & Plan Assessment & Plan narrative: 1. Acute cholecystitis - continue zosyn for now - surgery consultation for cholecystectomy, NPO and IV Fluids ordered. Can have diet if OR tomorrow. - Patient is considered medically optimized prior to surgical procedure, no recommended workup prior. - Downtrending Tbili today, possibly had a passed stone / choledocholithiasis. Continue to trend with daily CMP. CBD also mildly dilated. Lipase was 57 not consistent with pancreatitis. 2. Chronic Leukopenia - appears stable from outpatient labs. No further evaluation at this time. 3. Elevated BP without known diagnosis of HTN - likely related to pain, continue to monitor but do not recommend antihypertensives at this time. Code: DNR as confirmed with the patient today, surrogate is patient's daughter DVT: SCDs I have utilized all available immediate resources to obtain, update, or review the patient's current medications. Dispo: patient admitted under observation status. Likely discharge home, suspect tomorrow depending on timing of surgery. Additional history obtained via discussions with the ER provider. These discussions contributed to the creation of the above assessment and plan. I have reviewed patient's presenting documentation, labs, and imaging personally. Time-Based Coding :: [TOTAL MINUTES] spent with patient and on the chart (including review of chart, obtaining history, exam, reviewing outside data, placing orders, documenting exam and treatment plan, and counseling patient) on [DATE]. Quality VTE Deep Vein Thrombosis/Pulmonary Embolism Present on Admission: No
[2024-09-14 17:32] VITALS: O2SAT 97
[2024-09-14 18:00] VITALS: BP 157/77; PULSE 68; RESP 15; TEMP 36.6; O2SAT 97
[2024-09-14] MEDS: PIPERACILLIN/TAZO 3.375 GM in SODIUM CHLORIDE 0.9% 100 ML IV (20:52)
[2024-09-14 21:00] VITALS: BP 142/66; PULSE 63; RESP 15; TEMP 36.1; O2SAT 98
[2024-09-15] VITALS (19 sets, daily range): BP systolic 128–156; BP diastolic 59–81; PULSE 53–108; RESP 12–113; TEMP 35.9–36.3; O2SAT 93–100; BMI 20.2
--- NOTE | 2024-09-15 | PATH_ITS ---
[facility] Accession Number: [id number] No. of containers..01 Tissue . 01 Material submitted: . gallbladder - GALLBLADDER AND CONTENTS . 01 Diagnosis: GALLBLADDER AND CONTENTS, CHOLECYSTECTOMY: Mild/moderate chronic calculous cholecystitis with reactive changes, please see microscopic description. Benign lymph node of cystic duct with reactive lymphoid hyperplasia. Negative for dysplasia and malignancy. MRV 09/19/2024 1317 Local . 01 Electronically signed: . Meng Reyes MD, Pathologist NPI- [id number] . 01 Gross description: . The specimen is received in formalin, labeled with two patient identifiers and gallbladder, and consists of an 8.4 x 3.5 x 3.4 cm, intact, unopened gallbladder. The serosal surface is pink-white and mottled with focal areas of hemorrhage. There is a 0.4 x 0.3 x 0.2 cm stapled, probe-patent cystic duct which is inked blue. In addition, there is a 1.5 cm in greatest dimension, arreaga-pink, encapsulated lymph node, which is serially sectioned to show a pink-arreaga, lobulated, homogenous cut surface. The specimen is opened to show a 1.2 cm in greatest dimension, yellow, slightly crushed, multifaceted gallstone lodged within the spiral valves of the gallbladder. In addition, the lumen is filled with a 2.5 x 2.4 x 2.1 cm aggregate of crushed, yellow, multifaceted gallstones. The mucosa is completely effaced, white, fibrotic, thickened and laminated with a yellow focal calcified area. The gallbladder wall is varying in thickness and diffusely fibrotic and ranges from 0.2 cm up to 0.4 cm in thickness. Further sectioning of the wall shows diffuse areas of mild calcification. There is a 1.0 cm in greatest dimension cystic area located at the fundus of the gallbladder that communicates with the gallbladder wall. Certified Nurse Aide sections are submitted in cassettes: A1: Cystic duct and lymph node, entirely submitted. A2: Certified Nurse Aide sections of thickened gallbladder wall and mucosa. A3: Certified Nurse Aide section of fundic area, thickened gallbladder with cyst. ([id number]) /FRR 09/19/2024 1317 Local . 01 Microscopic: . Microscopic examination of the gallbladder sections reveals mild/moderate chronic calculous cholecystitis with marked wall fibrosis, degenerative changes including cyst formation, and dystrophic calcifications. . There is no evidence of epithelial atypia or malignancy. . 01 Pathologist provided ICD-10: K80.10 . 01 CPT . 854281 Specimen Comment: A courtesy copy of this report has been sent to [facility] Pathology Performed at: [address] [id number] MD Sudeep Dozier MD Phone: [phone]
[2024-09-15] MEDS: PIPERACILLIN/TAZO 3.375 GM in SODIUM CHLORIDE 0.9% 100 ML IV ×2 (04:04→12:35)
[2024-09-15] MEDS: ACETAMINOPHEN 325 MG TABLET 650 MG PO (04:55)
[2024-09-15 05:26] LABS: Add Manual Diff / Slide Review NO; Basophils Absolute Auto 0 /uL (0-100); Basophils Percent Auto 0.7 % (0-2); Eosinophils Absolute Auto 100 /uL (0-450); Eosinophils Percent Auto 4.1 % (2-4); Hematocrit 32.7 % (36-46); Hemoglobin 10.6 g/dL (12.0-16.0); Lymphocytes Absolute Auto 600 /uL (1100-4500); Lymphocytes Percent Auto 19.2 % (25-40); Mean Corpuscular HGB Conc 32.4 % (30-36); Mean Corpuscular Hemoglobin 27.2 PG (26-34); Monocytes Absolute Auto 400 /uL (0-900); Monocytes Percent Auto 12.7 % (3-14); Neutrophils Absolute Auto 1800 /uL (1500-7000); Neutrophils Percent Auto 63.3 % (50-75); Platelet Count 155 X10^3/uL (150-400); Red Blood Cell Count 3.89 X10^6/uL (4.0-5.2); Red Cell Distribution Width 14.9 % (11.6-14.8); White Blood Cell Count 2.9 X10^3/uL (4.5-11.0)
[2024-09-15 05:30] LABS: Alanine Aminotransferase 20 IU/L (<35); Albumin 3.5 g/dL (3.5-5.0); Albumin Globulin Ratio 1.2 (1.0-2.8); Alkaline Phosphatase 57 U/L (38-126); Aspartate Aminotransferase 30 IU/L (14-36); BUN Creatinine Ratio 21.5 (6-22); Bilirubin Total 1.1 mg/dL (0.2-1.3); Blood Urea Nitrogen 20 mg/dL (7-17); Calcium 8.5 mg/dL (8.4-10.2); Carbon Dioxide 24 mmol/L (22-32); Chloride 110 mmol/L (98-107); Estimated Glomerular Filt Rate 59 mL/min (>60); Globulin 2.9 g/dL (1.7-4.1); Glucose 75 mg/dL (80-110); HEMOLYSIS < 15 (0-50); Magnesium 1.8 mg/dL (1.6-2.3); Potassium 3.8 mmol/L (3.4-5.1); Sodium 141 mmol/L (137-145); Total Protein 6.4 g/dL (6.3-8.2)
[2024-09-15] MEDS: MORPHINE 2 MG/ML INJ IV (12:41)
[2024-09-15] MEDS: MORPHINE 4 MG/ML INJ IV (14:14)
[2024-09-15] MEDS: ONDANSETRON 4 MG/2 ML INJ IV ×2 (14:28→18:57)
--- NOTE | 2024-09-15 15:07 | DIET.CONS ---
Dietary Consultation Note Admission Date: 09/14/2024 12:45 Assessment: 89 y F admitted for acute cholecystitis. Dietitian screened for low MNA. Attempted visit, pt down in surgery. EMR reviewed. Per H&P, pt has had bloating after meals and abd pain that has gotten worse over last week. No recent weight loss per EMR, weight has been 43-47 kg in past year. BMI underweight for age. Ht: 152.4 cm Wt: 47 kg BMI: 20.2 UBW: 45.988 kg on 04/26/24 Last BM: 09/12/24 (09/15/24 14:53) MNA: 9 Joey Score: 20 Diet: 09/14/24 13:32 NPO Diet Diet Modifications: NPO Type: NPO except for Meds Nutrition Percent Meal Consumed patient is NPO 09/14/24 18:48 Labs: RBC 3.89 X10^6/uL (4.0-5.2) L 09/15/24 04:20 Hgb 10.6 g/dL (12.0-16.0) L 09/15/24 04:20 Hct 32.7 % (36-46) L 09/15/24 04:20 Creatinine 0.93 mg/dL (0.52-1.04) 09/15/24 04:20 Interventions: Monitoring for diet advancement, tolerance, and PO intakes after surgery. EER: 1033-4866 kcals (25-30 kcals/kg per BMI) 50 g protein (1g/kg) Electronically Signed by: Kyung Gaffney 09/15/24 15:07 Clinical Dietitian [address] [address]
--- NOTE | 2024-09-15 15:14 | EKG_ITS ---
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
--- NOTE | 2024-09-15 15:15 | DI.RAD.S_ITS ---
PROCEDURE: XR CHOLANGIOGRAM OPERATIVE INDICATIONS: surgery COMPARISON: None. FINDINGS: Biliary ducts: The surgeon injected contrast into the biliary ducts after cannulation of the cystic duct stump. Visualized intra- and extrahepatic bile ducts are normal in caliber, without strictures. No intraluminal filling defects to suggest retained ductal stones or sludge. No evidence for iatrogenic ductal injury. Duodenum: Contrast flows promptly through the sphincter of Oddi into the duodenum, which appears normal in caliber. IMPRESSION: No filling defects within the opacified common bile duct. Dictated by: Taj Vaughan M.D. on 09/16/2024 at 11:10 Approved by: Taj Vaughan M.D. on 09/16/2024 at 11:10
--- NOTE | 2024-09-15 15:22 | P.PN_ITS ---
Subjective Subjective Interval history: Doing well this morning, but in the afternoon had more pain and nausea. Morphine was increased. Planned for OR today with surgery for cholceystectomy. Exam Vital Signs (past 8 hours): - 09/15/24 08:00 09/15/24 12:00 09/15/24 14:53 Temperature 97.1 F L 97.2 F L 97.4 F L Pulse Rate 53 L 56 L 60 Respiratory Rate 15 16 16 Blood Pressure 128/59 L 147/64 H 130/63 Pulse Oximetry 98 97 95 Oxygen Delivery Method Room Air Oxygen Flow Rate 0 0 Oxygen Delivery Method Room Air Oxygen Flow Rate 0 Narrative Exam Narrative: General:? Patient is well developed and well nourished, in no distress at this time. HEENT:? Normocephalic, atraumatic, extraocular muscles intact, oral pharynx is clear and mucous membranes are moist. Neck: supple and symmetric, trachea is midline, no cervical adenopathy. Negative for JVD Chest:? Normal AP diameter and contour without kyphoscoliosis, no tachypnea, equal chest rise bilaterally. Lungs:? CTA b/l no wheezing rhonchi or rales. Cardio:?RRR no m/r/g. Abdomen: S mild tenderness RUQ, non-distended. Musculoskeletal:? Muscle strength and tone are equal within normal limits, no deformity. Extremities: No edema or joint effusions. No cyanosis or clubbing. Skin:? Pale,? Warm to touch,dry and intact without rashes, ulcerations or petechiae.? Neuro:? Alert and orientated x3,? sensation to touch intact in all extremities, no gross deficits noted of cranial nerves. Psych:? Patient has a well-kept appearance, appropriate affect, mental status attitude thought context and judgment are appropriate for age. Objective Labs 09/15/24 04:20 09/15/24 04:20 Labs: Laboratory Results - last 24 hr 09/15/24 04:20 WBC 2.9 L RBC 3.89 L Hgb 10.6 L Hct 32.7 L MCV 84.0 MCH 27.2 MCHC 32.4 RDW 14.9 H Plt Count 155 Neut % (Auto) 63.3 Lymph % (Auto) 19.[address] [place] % (Auto) 12.7 Eos % (Auto) 4.1 H Baso % (Auto) 0.7 Neut # (Auto) 1800 Lymph # (Auto) [address] [place] # (Auto) 400 Eos # (Auto) 100 Baso # (Auto) 0 Sodium 141 Potassium 3.8 Chloride 110 H Carbon Dioxide 24 BUN 20 H Creatinine 0.93 Estimated GFR 59 L BUN/Creatinine Ratio 21.5 Glucose 75 L Calcium 8.5 Magnesium 1.8 Total Bilirubin 1.1 AST 30 ALT 20 Alkaline Phosphatase 57 Total Protein 6.4 Albumin 3.5 Globulin 2.9 Albumin/Globulin Ratio 1.2 PFSH Medical History Actinic keratoses Anorexia Anxiety Balance problem Bilateral leg numbness Bilateral lower extremity edema Cervical somatic dysfunction Chest pain on exertion Chronic bilateral low back pain without sciatica Chronic pain in left foot Chronic pain in left foot Constipation Cranial somatic dysfunction Gall bladder stones History of calculus of gallbladder Incomplete bladder emptying Insomnia Lower urinary tract symptoms (LUTS) Lumbar region somatic dysfunction Major depressive disorder Memory problem Microscopic hematuria Nausea and vomiting in adult patient Neck stiffness Orthopnea Osteoporosis Pelvic somatic dysfunction Physical deconditioning Physician orders for life-sustaining treatment (POLST) form indicates patient wish for vt-vcz-zijbelyiayr status Postmenopausal atrophic vaginitis Right hip pain Right leg weakness RUQ abdominal tenderness Sacral region somatic dysfunction Seborrheic keratoses Segmental and somatic dysfunction of abdomen and other regions Segmental and somatic dysfunction of rib cage Short leg syndrome, left, acquired Somatic dysfunction of lower extremity Spell of dizziness Thoracic region somatic dysfunction Upper back pain, chronic Upper extremity somatic dysfunction Urge incontinence of urine Urinary retention Valgus deformity of right great toe Family History Mother Hyperlipidemia Hypertension Daughter Thyroid disease Kidney stones Social History marital status: number of children: 5 household members: none Smoking Status: Never smoker alcohol intake: current Assessment & Plan Assessment & Plan narrative: 1. Acute cholecystitis, POA - continue zosyn for now - surgery consultation for cholecystectomy, NPO and IV Fluids ordered. OR plan is for later today for cholecystectomy. - Patient is considered medically optimized prior to surgical procedure, no recommended workup prior. - stable Tbili today, possibly had a passed stone / choledocholithiasis. Continue to trend with daily CMP. CBD also mildly dilated. Lipase was 57 not consistent with pancreatitis. 2. Chronic Leukopenia, POA - appears stable from outpatient labs. No further evaluation at this time. 3. Elevated BP without known diagnosis of HTN - likely related to pain, continue to monitor but do not recommend antihypertensives at this time. BP are improved slightly today. Code: DNR as confirmed with the patient today, surrogate is patient's daughter DVT: SCDs I have utilized all available immediate resources to obtain, update, or review the patient's current medications. Dispo: patient admitted under observation status. Likely discharge home, suspect tomorrow given afternoon OR timing today. Additional history obtained via discussions with the general surgeon. These discussions contributed to the creation of the above assessment and plan. I have reviewed patient's presenting documentation, labs, and imaging personally. Time-Based Coding :: [TOTAL MINUTES] spent with patient and on the chart (including review of chart, obtaining history, exam, reviewing outside data, placing orders, documenting exam and treatment plan, and counseling patient) on [DATE]. Quality VTE Deep Vein Thrombosis/Pulmonary Embolism Present on Admission: No
--- NOTE | 2024-09-15 15:24 | CM.DANOTE ---
DCP Assessment Note: Pt is a 89yo female, resident of [place], is s/p lap cholecystectomy. Pt lives in an apartment alone. Pt's Primary Care Provider is Dr. Sabrina Gaines MD and insurance is [employer] Medicare and Medicaid. Reviewed chart and discussed with multidisciplinary team pt's medical status and initial discharge needs. DCP met w/patient at bedside; introduced self and role. Patient was found in bed, alert and oriented, cooperative with assessment. Pt confirmed living situation and good support in daughter, Florencia, who lives locally. Pt explained she is independent at baseline, does not use any medical equipment. Pt expressed preference in discharge home after surgery, pt verbalized understaning that pending the results of surgery, there might be recommendation for home health. Pt has no hx of SNF Rehab or home halth. Pt agreeable to working with therapies and following their recommendations. Plan: Pt scheduled for surgery today, 09/15, plan of care to be determined after surgery. Anticipating dc home with daughter to transport. CM team will follow closely for coordination of discharge plans. Maryann Riley [facility] Discharge Planning/Care Management CM Discharge Assessment Start: 09/15/24 15:19 Freq: Status: Active Protocol: Document 09/15/24 15:19 MW (Rec: 09/15/24 15:23 MW [id number]) Discharge Planning Assessment Assigned Filter Pulp Washer JINA Wolf/Assigned Designee Name Isabelle Llanos Contact Information [phone] Advance Directives? No History Provided By Patient,Family Member,Medical Record Has Patient been admitted in last 30 No days? Prior Living Arrangements Apartment/Condo Household Members none Type of transporation used prior to Drives own vehicle admit Independent with ADL's Yes Is patient alert and oriented? Yes Caregiver for Another No Barriers to Discharge No Discharge Plan Home Referrals Initiated None needed Review Status In Process Please Provide Date Initial DC 09/15/24 Assessment Was Performed Next Review Type Continued Stay Review
--- NOTE | 2024-09-15 15:35 | P.OP.PRE_ITS ---
Pre-operative Note COVID-19 COVID-19 status: Not tested Interval Note History & Physical reviewed/Exam performed by Physician: Yes Changes to H&P: No H&P completed within 30 days and has changed as indicated here:: I reviewed t he patient's inpatient consultation from yesterday September 14. Agreed to proceed with laparoscopic cholecystectomy with intraoperative cholangiogram. ASA Class (for procedural sedation): II
[2024-09-15] MEDS: BUPIVACAINE 0.25% (PF) VIAL 30 ML INJ (17:27)
[2024-09-15] MEDS: iopamidoL 30 ML VIAL INJ (17:28)
[2024-09-15] MEDS: LACTATED RINGERS 1,000 ML 42 ML IV (18:00)
--- NOTE | 2024-09-15 18:03 | SUR.OPER ---
FLURO TIME 45 SECONDS
[2024-09-15] MEDS: HYDROMORPHONE 1 MG INJ IV ×2 (18:55→19:03)
[2024-09-15] MEDS: hydrOXYzine 50 MG/ML INJ 25 MG IM (18:57)
--- NOTE | 2024-09-15 19:04 | P.OP_ITS ---
Operative Date/Time/Diagnoses Date of procedure: 09/15/24 Time of procedure: 14:00 Pre-op diagnosis: Acute cholecystitis Post-op diagnosis: other ( Chronic cholecystitis) Procedure & Clinicians Procedure: laparoscopic cholecystectomy with intraoperative cholangiogram Same procedure as scheduled: Yes Indications: This is a 89-year-old woman who presented to the hospital for outpatient right upper quadrant ultrasound and was found to have a distended gallbladder. Patient was sent to the emergency room and admitted for concerns of acute cholecystitis. Patient was found to have no leukocytosis but did have a slightly elevated total bilirubin. General surgery was consulted. ParQ was held and patient agreed to proceed with laparoscopic cholecystectomy with intraoperative cholangiogram. Surgeon: Wendy Joseph Click Yes if Unassisted: No Anesthesia Type: General Operative Notes Findings: Chronically and faint gallbladder that was extremely distended with a cystic like structure off of the most distal tip of the gallbladder. Due to the firm nature of the gallbladder and the patient's age, we did not aspirate the gallbladder for concerns of possible malignancy versus chronic inflammation of the gallbladder. Closure Type: primary Specimen(s): other ( Gallbladder) Estimated Blood Loss (mL): 100 Blood products transfused: none Procedure in detail: The patient was brought to the operating room and placed supine on the operatin g room table. General endotracheal anesthesia was induced and the patient was intubated without incident. The patient's abdomen was prepped and draped in the usual sterile fashion. A routine time-out which confirmed the patient, scheduled antibiotics were received, fire risk and all team members were in agreement. A can's point, a Veress needle was inserted into the abdominal cavity. A saline drop test was performed to confirm the intra-abdominal location of the needle. The abdomen was insufflated to a pressure of 15 mmHg. Patient tolerated pneumoperitoneum without incident. Using the Optiview technique a 5 mm trocar was inserted supraumbilically. There was no injury incurred from entering the abdomen as well as no injury from the Veress needle. we proceeded with placing 3 additional trocars. One 12 mm trocar was placed in the subxiphoid region while the 2 additional 5 mm trocars were placed in the right upper and lower quadrants respectively. We proceeded with attempting to elevate the gallbladder cephalad. The patient was noted to have a cystic protrusion of the tip of the fundus. The firmness and significant distention of the gallbladder and made it difficult to retract cephalad. Due to the firm nature of the gallbladder likely due to either chronic inflammation versus gallbladder malignancy, we proceeded without aspirating the gallbladder. The infundibulum of the gallbladder was identified. An L hook with electrocautery was used to dissect the infundibulum. The cystic duct and posterior cystic artery were identified. The cystic artery was clipped. We proceeded to dissect the cystic duct. The cystic duct was circumferentially dissected and a distal 10 mm clip was applied to the cystic duct. Using the Lantigua clamp, a cholangiogram catheter was inserted into the cystic duct after a ductotomy was created with Metzenbaum scissors. Fluoroscopy was used to perform the cholangiogram. The Omnipaque was instilled into the cystic duct and demonstrated no stone obstructing the dilated common bile duct and delayed emptying into the duodenal. No obstruction was identified. There was visualization of the left and right hepatic ducts without any stones. The cholangiogram catheter was removed and this concluded the cholangiogram. We proceeded with additional dissection of the cystic duct. Two clips were applied proximally. The cystic duct was transected. We continued to dissect the gallbladder off of the gallbladder fossa. There was an additional posterior cystic artery that was partially transected. This was controlled and hemostasis was obtained with using a clip associate buyer. The gallbladder was dissected free from the gallbladder fossa without any additional spillage of bile. Patient was noted to have a very friable liver. Hemostasis was obtained with the L hook and Surgicel. The Surgicel was removed and Arixtra was inserted into the gallbladder fossa. The gallbladder was externalized and sent to pathology for permanent specimen after inserting a sterile Endo-Catch bag. The large nature of the gallbladder necessitated enlarging the subxiphoid 12 mm trocar site. The gallbladder was sent off for pathology pneumoperitoneum was removed and all trocars were removed. The subxiphoid incision fascia was closed using a running 0 PDS suture. The Aleida's fascia was closed with interrupted 3-0 Vicryl sutures. The deep dermal layer was closed with interrupted 3-0 Vicryl sutures. The subcuticular layer was closed with a running 4-0 Vicryl suture. All additional 5 mm trocars were closed with interrupted 4 0 Vicryl sutures. The skin was dressed with Dermabond. The patient tolerated the procedure well and subsequently extubated and transferred to PACU. At the end of the operation, all needle, sponge, instrument counts were correct. I was present and scrubbed for the entirety of the operation. Complications: none Post-operative Condition: stable Disposition: PACU Plan for aftercare: transferred to the floor and resume diet
[2024-09-15] MEDS: OXYCODONE IR 5 MG TABLET PO (19:09)
[2024-09-16] VITALS (8 sets, daily range): BP systolic 123–150; BP diastolic 58–77; PULSE 77–90; RESP 16–19; TEMP 36.1–37.3; O2SAT 94–100
[2024-09-16] MEDS: MORPHINE 2 MG/ML INJ IV (00:01)
[2024-09-16] MEDS: OXYCODONE 5 MG/5 ML ORAL SOLUTION PO ×5 (02:21→22:44)
[2024-09-16 06:08] LABS: Add Manual Diff / Slide Review NO; Basophils Absolute Auto 0 /uL (0-100); Basophils Percent Auto 0.1 % (0-2); Eosinophils Absolute Auto 0 /uL (0-450); Hemoglobin 11.5 g/dL (12.0-16.0); Lymphocytes Absolute Auto 300 /uL (1100-4500); Mean Corpuscular HGB Conc 32.8 % (30-36); Mean Corpuscular Hemoglobin 27.3 PG (26-34); Mean Corpuscular Volume 83.5 fL (80-100); Monocytes Absolute Auto 700 /uL (0-900); Monocytes Percent Auto 8.7 % (3-14); Neutrophils Absolute Auto 6600 /uL (1500-7000); Neutrophils Percent Auto 87.2 % (50-75); Platelet Count 157 X10^3/uL (150-400); Red Blood Cell Count 4.19 X10^6/uL (4.0-5.2); Red Cell Distribution Width 14.9 % (11.6-14.8); White Blood Cell Count 7.5 X10^3/uL (4.5-11.0)
[2024-09-16 06:19] LABS: Alanine Aminotransferase 33 IU/L (<35); Albumin 3.5 g/dL (3.5-5.0); Albumin Globulin Ratio 1.2 (1.0-2.8); Alkaline Phosphatase 68 U/L (38-126); Aspartate Aminotransferase 68 IU/L (14-36); BUN Creatinine Ratio 19.2 (6-22); Bilirubin Total 1.1 mg/dL (0.2-1.3); Blood Urea Nitrogen 14 mg/dL (7-17); Calcium 8.3 mg/dL (8.4-10.2); Carbon Dioxide 23 mmol/L (22-32); Chloride 106 mmol/L (98-107); Estimated Glomerular Filt Rate > 60 mL/min (>60); Globulin 2.9 g/dL (1.7-4.1); Glucose 166 mg/dL (80-110); HEMOLYSIS < 15 (0-50); Magnesium 1.3 mg/dL (1.6-2.3); Potassium 4.1 mmol/L (3.4-5.1); Sodium 137 mmol/L (137-145); Total Protein 6.4 g/dL (6.3-8.2)
[2024-09-16] MEDS: methocarbamoL 500 MG TABLET PO ×2 (12:27→18:34)
[2024-09-16] MEDS: MAGNESIUM SULFATE 2 GM/50 ML PIGGYBACK IV (12:28)
--- NOTE | 2024-09-16 16:25 | PM.PN.1 ---
Subjective Subjective Interval history: In quite a bit of pain this morning after cholecystectomy yesterday. Surgeon states incision needed to be a bit bigger than normal so pain is anticipated. Appetite minimal today given pain. Exam Vital Signs (past 8 hours): - 09/16/24 10:51 Temperature 97.8 F Pulse Rate 90 Respiratory Rate 16 Blood Pressure 150/77 H Pulse Oximetry 100 Oxygen Flow Rate 2 Oxygen Delivery Method Nasal Cannula Oxygen Flow Rate 2 Narrative Exam Narrative: General:? Patient is well developed and well nourished, in no distress at this time. Lungs:? CTA b/l no wheezing rhonchi or rales. Cardio:?RRR no m/r/g. Abdomen: S, appropriately tender,non distended. Extremities: No edema or joint effusions. No cyanosis or clubbing. Objective Labs 09/16/24 05:00 09/16/24 05:00 Labs: Laboratory Results - last 24 hr 09/16/24 05:00 WBC 7.5 D RBC 4.19 Hgb 11.5 L Hct 35.0 L MCV 83.5 MCH 27.3 MCHC 32.8 RDW 14.9 H Plt Count 157 Neut % (Auto) 87.2 H D Lymph % (Auto) 4.0 L [place] % (Auto) 8.7 Eos % (Auto) 0.0 L Baso % (Auto) 0.1 Neut # (Auto) 6600 Lymph # (Auto) 300 L [place] # (Auto) 700 Eos # (Auto) 0 Baso # (Auto) 0 Sodium 137 Potassium 4.1 Chloride 106 Carbon Dioxide 23 BUN 14 Creatinine 0.73 Estimated GFR > 60 BUN/Creatinine Ratio 19.2 Glucose 166 H Calcium 8.3 L Magnesium 1.3 L Total Bilirubin 1.1 AST 68 H ALT 33 Alkaline Phosphatase 68 Total Protein 6.4 Albumin 3.5 Globulin 2.9 Albumin/Globulin Ratio 1.2 PFSH Medical History Actinic keratoses Anorexia Anxiety Balance problem Bilateral leg numbness Bilateral lower extremity edema Cervical somatic dysfunction Chest pain on exertion Chronic bilateral low back pain without sciatica Chronic pain in left foot Chronic pain in left foot Constipation Cranial somatic dysfunction Gall bladder stones History of calculus of gallbladder Incomplete bladder emptying Insomnia Lower urinary tract symptoms (LUTS) Lumbar region somatic dysfunction Major depressive disorder Memory problem Microscopic hematuria Nausea and vomiting in adult patient Neck stiffness Orthopnea Osteoporosis Pelvic somatic dysfunction Physical deconditioning Physician orders for life-sustaining treatment (POLST) form indicates patient wish for [id number] status Postmenopausal atrophic vaginitis Right hip pain Right leg weakness RUQ abdominal tenderness Sacral region somatic dysfunction Seborrheic keratoses Segmental and somatic dysfunction of abdomen and other regions Segmental and somatic dysfunction of rib cage Short leg syndrome, left, acquired Somatic dysfunction of lower extremity Spell of dizziness Thoracic region somatic dysfunction Upper back pain, chronic Upper extremity somatic dysfunction Urge incontinence of urine Urinary retention Valgus deformity of right great toe Family History Mother Hyperlipidemia Hypertension Daughter Thyroid disease Kidney stones Social History marital status: number of children: 5 household members: none Smoking Status: Never smoker alcohol intake: current Assessment & Plan Assessment & Plan narrative: 1. Acute cholecystitis, POA - antibiotics discontinued after lap cholecystecomy on 09/15. - surgery consultation appreciated, now POD #1 struggling with pain control after given larger incision than usual and elderly patient. - stable Tbili today, possibly had a passed stone / choledocholithiasis. Intra-op cholangiogram was negative. Lipase was 57 not consistent with pancreatitis. 2. Chronic Leukopenia, POA - appears stable from outpatient labs. No further evaluation at this time. 3. Elevated BP without known diagnosis of HTN - likely related to pain, continue to monitor but do not recommend antihypertensives at this time. 4. Hypomagnesemia - Mg 1.3, repleted today. Code: DNR as confirmed with the patient, surrogate is patient's daughter DVT: SCDs I have utilized all available immediate resources to obtain, update, or review the patient's current medications. Dispo: patient admitted under observation status. Likely discharge home, suspect tomorrow given poor pain control today. Additional history obtained via discussions with the general surgeon. These discussions contributed to the creation of the above assessment and plan. I have reviewed patient's presenting documentation, labs, and imaging personally. Time-Based Coding :: [TOTAL MINUTES] spent with patient and on the chart (including review of chart, obtaining history, exam, reviewing outside data, placing orders, documenting exam and treatment plan, and counseling patient) on [DATE]. Quality VTE Deep Vein Thrombosis/Pulmonary Embolism Present on Admission: No
--- NOTE | 2024-09-16 17:13 | P.PN_ITS ---
Subjective Subjective Date Patient Seen: 09/16/24 Interval history: Patient complaining of significant abdominal pain and spasms under her right rib cage. Denies any nausea or emesis. The patient is postop day 1. Status post laparoscopic cholecystectomy with intraoperative cholangiogram. No acute events intraoperatively. Besides pain, patient is doing overall well. Exam Vital Signs (past 8 hours): - 09/16/24 10:51 09/16/24 15:00 Temperature 97.8 F 99.1 F Pulse Rate 90 81 Respiratory Rate 16 17 Blood Pressure 150/77 H 143/71 H Pulse Oximetry 100 99 Oxygen Flow Rate 2 0 Oxygen Delivery Method Nasal Cannula Oxygen Flow Rate 0 Const General: cooperative, healthy appearing, acute distress and frail appearing HENAL Head: normal to inspection and normocephalic Eyes General: appearance normal, both eyes and all related structures Neck Neck: normal visual inspection Chest Chest: normal inspection of the chest Resp Effort & Inspection: normal respiratory effort GI Inspection: normal to inspection and incision (Incisions are clean dry and intact) Palpation: guarding and tender (Tenderness to palpation in the epigastric/right upper quadrant region) Skin General: no rashes or lesions noted Neuro General: patient alert, patient awake and patient oriented x3 Extrem General: normal to inspection Psych Appearance: grossly normal Mental Status: mental status grossly normal Objective Labs 09/16/24 05:00 09/16/24 05:00 Labs: Laboratory Results - last 24 hr 09/16/24 05:00 WBC 7.5 D RBC 4.19 Hgb 11.5 L Hct 35.0 L MCV 83.5 MCH 27.3 MCHC 32.8 RDW 14.9 H Plt Count 157 Neut % (Auto) 87.2 H D Lymph % (Auto) 4.0 L [place] % (Auto) 8.7 Eos % (Auto) 0.0 L Baso % (Auto) 0.1 Neut # (Auto) 6600 Lymph # (Auto) 300 L [place] # (Auto) 700 Eos # (Auto) 0 Baso # (Auto) 0 Sodium 137 Potassium 4.1 Chloride 106 Carbon Dioxide 23 BUN 14 Creatinine 0.73 Estimated GFR > 60 BUN/Creatinine Ratio 19.2 Glucose 166 H Calcium 8.3 L Magnesium 1.3 L Total Bilirubin 1.1 AST 68 H ALT 33 Alkaline Phosphatase 68 Total Protein 6.4 Albumin 3.5 Globulin 2.9 Albumin/Globulin Ratio 1.2 PFSH Medical History Actinic keratoses Anorexia Anxiety Balance problem Bilateral leg numbness Bilateral lower extremity edema Cervical somatic dysfunction Chest pain on exertion Chronic bilateral low back pain without sciatica Chronic pain in left foot Chronic pain in left foot Constipation Cranial somatic dysfunction Gall bladder stones History of calculus of gallbladder Incomplete bladder emptying Insomnia Lower urinary tract symptoms (LUTS) Lumbar region somatic dysfunction Major depressive disorder Memory problem Microscopic hematuria Nausea and vomiting in adult patient Neck stiffness Orthopnea Osteoporosis Pelvic somatic dysfunction Physical deconditioning Physician orders for life-sustaining treatment (POLST) form indicates patient wish for [id number] status Postmenopausal atrophic vaginitis Right hip pain Right leg weakness RUQ abdominal tenderness Sacral region somatic dysfunction Seborrheic keratoses Segmental and somatic dysfunction of abdomen and other regions Segmental and somatic dysfunction of rib cage Short leg syndrome, left, acquired Somatic dysfunction of lower extremity Spell of dizziness Thoracic region somatic dysfunction Upper back pain, chronic Upper extremity somatic dysfunction Urge incontinence of urine Urinary retention Valgus deformity of right great toe Family History Mother Hyperlipidemia Hypertension Daughter Thyroid disease Kidney stones Social History marital status: number of children: 5 household members: none Smoking Status: Never smoker alcohol intake: current Assessment & Plan Assessment and plan (1) Acute calculous cholecystitis: Status: Acute (2) RUQ abdominal tenderness: Qualifiers: Presence of rebound: absent Qualified Code(s): R10.811 - Right upper quadrant abdominal tenderness Status: Acute Assessment & Plan narrative: This is a 89-year-old woman who is postop day 1. Status post laparoscopic cholecystectomy for likely chronic cholecystitis. -IV fluids and regular diet. Okay to discontinue IV fluids once patient is tolerating sufficient regular diet -okay to discontinue IV antibiotics -replace electrolytes as needed -multimodal pain control. Muscle relaxant added today for muscle spasms -continue inpatient care. Once patient's pain is well controlled and she is able to tolerate regular diet and her mobility increases, we will plan for discharge. Time-Based Coding :: [TOTAL MINUTES] spent with patient and on the chart (including review of chart, obtaining history, exam, reviewing outside data, placing orders, documenting exam and treatment plan, and counseling patient) on [DATE]. Quality VTE Deep Vein Thrombosis/Pulmonary Embolism Present on Admission: No IH PROFEE Gunnery/Ordnance Officer Document charge(s): Yes Charge Codes Subsequent inpatient/observation care: [id number]
[2024-09-17] VITALS (12 sets, daily range): BP systolic 106–130; BP diastolic 46–61; PULSE 65–89; RESP 16–19; TEMP 36.1–37.1; O2SAT 91–98
[2024-09-17] MEDS: MORPHINE 2 MG/ML INJ IV (05:40)
[2024-09-17] MEDS: ACETAMINOPHEN 325 MG TABLET 650 MG PO ×3 (05:44→21:56)
[2024-09-17 05:53] LABS: Add Manual Diff / Slide Review NO; Basophils Absolute Auto 0 /uL (0-100); Basophils Percent Auto 0.1 % (0-2); Eosinophils Absolute Auto 0 /uL (0-450); Eosinophils Percent Auto 0.2 % (2-4); Hematocrit 34.5 % (36-46); Hemoglobin 11.4 g/dL (12.0-16.0); Lymphocytes Absolute Auto 600 /uL (1100-4500); Lymphocytes Percent Auto 6.3 % (25-40); Mean Corpuscular HGB Conc 33.1 % (30-36); Mean Corpuscular Hemoglobin 27.5 PG (26-34); Monocytes Absolute Auto 800 /uL (0-900); Monocytes Percent Auto 8.3 % (3-14); Neutrophils Absolute Auto 8300 /uL (1500-7000); Neutrophils Percent Auto 85.1 % (50-75); Platelet Count 152 X10^3/uL (150-400); Red Blood Cell Count 4.15 X10^6/uL (4.0-5.2); Red Cell Distribution Width 14.6 % (11.6-14.8); White Blood Cell Count 9.7 X10^3/uL (4.5-11.0)
[2024-09-17 06:03] LABS: Alanine Aminotransferase 31 IU/L (<35); Albumin 3.3 g/dL (3.5-5.0); Albumin Globulin Ratio 1.1 (1.0-2.8); Alkaline Phosphatase 72 U/L (38-126); Aspartate Aminotransferase 51 IU/L (14-36); Bilirubin Total 1.6 mg/dL (0.2-1.3); Blood Urea Nitrogen 13 mg/dL (7-17); Calcium 8.5 mg/dL (8.4-10.2); Carbon Dioxide 26 mmol/L (22-32); Chloride 102 mmol/L (98-107); Estimated Glomerular Filt Rate > 60 mL/min (>60); Glucose 103 mg/dL (80-110); HEMOLYSIS < 15 (0-50); Magnesium 1.8 mg/dL (1.6-2.3); Potassium 3.9 mmol/L (3.4-5.1); Sodium 133 mmol/L (137-145); Total Protein 6.3 g/dL (6.3-8.2)
--- NOTE | 2024-09-17 10:07 | PM.PN.IH.1 ---
Subjective Subjective Date Patient Seen: 09/17/24 Time Patient Seen: 12:34 Interval history: Patient states that her pain is better controlled. She is anxious/resistant to moving out of the bed today but states that she will attempt to do this. She is passing flatus. Exam Vital Signs (past 8 hours): - 09/17/24 05:00 09/17/24 05:30 09/17/24 08:00 Temperature 98.8 F 97.9 F Pulse Rate 76 65 Respiratory Rate 18 17 Blood Pressure 122/60 115/53 L Pulse Oximetry 97 97 98 Oxygen Delivery Method Nasal Cannula Humidification Oxygen Flow Rate 2 2 2 Oxygen Delivery Method Nasal Cannula,Humidification Oxygen Flow Rate 2 Const General: cooperative, No acute distress, frail appearing and ill appearing Orientation: alert, awake and oriented x3 HENMT Head: normal to inspection Eyes General: appearance normal, both eyes and all related structures Neck Neck: normal visual inspection Chest Chest: normal inspection of the chest Resp Effort & Inspection: normal respiratory effort Cardio Rate: regular rate GI Inspection: normal to inspection, distended and incision (Incisions C/D/I) Palpation: soft and tender (Appropriate tenderness to palpation) Back/Spine/Pelvis Back: normal to inspection Skin General: no rashes or lesions noted Neuro General: patient alert, patient awake and patient oriented x3 Cognition: normal cognition Speech: speech normal Extrem General: normal to inspection Psych Appearance: grossly normal Mental Status: mental status grossly normal Objective Labs 09/17/24 05:00 09/17/24 05:00 Labs: Laboratory Results - last 24 hr 09/17/24 05:00 WBC 9.7 RBC 4.15 Hgb 11.4 L Hct 34.5 L MCV 83.0 MCH 27.5 MCHC 33.1 RDW 14.6 Plt Count 152 Neut % (Auto) 85.1 H Lymph % (Auto) 6.3 L [place] % (Auto) 8.3 Eos % (Auto) 0.2 L Baso % (Auto) 0.1 Neut # (Auto) 8300 H Lymph # (Auto) 600 L [place] # (Auto) 800 Eos # (Auto) 0 Baso # (Auto) 0 Sodium 133 L Potassium 3.9 Chloride 102 Carbon Dioxide 26 BUN 13 Creatinine 0.81 Estimated GFR > 60 BUN/Creatinine Ratio 16.0 Glucose 103 Calcium 8.5 Magnesium 1.8 Total Bilirubin 1.6 H AST 51 H ALT 31 Alkaline Phosphatase 72 Total Protein 6.3 Albumin 3.3 L Globulin 3.0 Albumin/Globulin Ratio 1.1 PFSH Medical History Actinic keratoses Anorexia Anxiety Balance problem Bilateral leg numbness Bilateral lower extremity edema Cervical somatic dysfunction Chest pain on exertion Chronic bilateral low back pain without sciatica Chronic pain in left foot Chronic pain in left foot Constipation Cranial somatic dysfunction Gall bladder stones History of calculus of gallbladder Incomplete bladder emptying Insomnia Lower urinary tract symptoms (LUTS) Lumbar region somatic dysfunction Major depressive disorder Memory problem Microscopic hematuria Nausea and vomiting in adult patient Neck stiffness Orthopnea Osteoporosis Pelvic somatic dysfunction Physical deconditioning Physician orders for life-sustaining treatment (POLST) form indicates patient wish for [id number] status Postmenopausal atrophic vaginitis Right hip pain Right leg weakness RUQ abdominal tenderness Sacral region somatic dysfunction Seborrheic keratoses Segmental and somatic dysfunction of abdomen and other regions Segmental and somatic dysfunction of rib cage Short leg syndrome, left, acquired Somatic dysfunction of lower extremity Spell of dizziness Thoracic region somatic dysfunction Upper back pain, chronic Upper extremity somatic dysfunction Urge incontinence of urine Urinary retention Valgus deformity of right great toe Family History Mother Hyperlipidemia Hypertension Daughter Thyroid disease Kidney stones Social History marital status: number of children: 5 household members: none Smoking Status: Never smoker alcohol intake: current Assessment & Plan Assessment and plan (1) Acute calculous cholecystitis: Status: Acute Assessment & Plan narrative: This is a 89-year-old woman who is postop day 2 s/p laparoscopic cholecystectomy for likely chronic cholecystitis. -okay to decrease fluids and continue regular diet. -okay to discontinue IV antibiotics -replace electrolytes as needed -multimodal pain control with muscle relaxant -continue inpatient care. Once patient's pain is better controlled and she is able to tolerate regular diet and her mobility increases, we will plan for discharge. Time-Based Coding :: 20 minutes spent with patient and on the chart (including review of chart, obtaining history, exam, reviewing outside data, placing orders, documenting exam and treatment plan, and counseling patient) on September 17, 2024 Quality VTE Deep Vein Thrombosis/Pulmonary Embolism Present on Admission: No PROFEE Linux Systems Engineer Document charge(s): Yes Charge Codes Subsequent inpatient/observation care: [id number]
[2024-09-17] MEDS: OXYCODONE 5 MG/5 ML ORAL SOLUTION PO ×2 (10:34→18:32)
--- NOTE | 2024-09-17 11:49 | PT.IIE ---
Current Diagnoses Calculus of gallbladder with acute cholecystitis without obstruction (09/14/24) Calculus of gallbladder without cholecystitis without obstruction (09/14/24) Right upper quadrant abdominal tenderness (09/14/24) Surgery Performed Operation Date: 09/15/24 15:15 Actual Procedures p Laparoscopic Cholecystectomy with IOC - Wendy Joseph MD Medical History (Last Reviewed 03/12/23 @ 17:28 by Mina Bo DO) Actinic keratoses Anorexia Anxiety Balance problem Bilateral leg numbness Bilateral lower extremity edema Cervical somatic dysfunction Chest pain on exertion Chronic bilateral low back pain without sciatica Chronic pain in left foot Chronic pain in left foot Constipation Cranial somatic dysfunction Gall bladder stones History of calculus of gallbladder Incomplete bladder emptying Insomnia Lower urinary tract symptoms (LUTS) Lumbar region somatic dysfunction Major depressive disorder Memory problem Microscopic hematuria Nausea and vomiting in adult patient Neck stiffness Orthopnea Osteoporosis Pelvic somatic dysfunction Physical deconditioning Physician orders for life-sustaining treatment (POLST) form indicates patient wish for [id number]-[id number] status Postmenopausal atrophic vaginitis Right hip pain Right leg weakness RUQ abdominal tenderness Sacral region somatic dysfunction Seborrheic keratoses Segmental and somatic dysfunction of abdomen and other regions Segmental and somatic dysfunction of rib cage Short leg syndrome, left, acquired Somatic dysfunction of lower extremity Spell of dizziness Thoracic region somatic dysfunction Upper back pain, chronic Upper extremity somatic dysfunction Urge incontinence of urine Urinary retention Valgus deformity of right great toe Physical Therapy Inpatient Evaluation/Re-Eval M1 PT/OT-IP Prior Functional Status Start: 09/17/24 09:08 Freq: NEEDED Status: Active Protocol: Document 09/17/24 11:16 MB (Rec: 09/17/24 11:49 MB [id number]) Medical Review Prior Functional Status Medical History Reviewed Yes Communication Pt communicates some PLOF Mobility and Gait Pt reports I without AD Activities of Daily Living and IADL's Pt reports I without AD Social History Household Members none Living Arrangements Apartment/Condo Number of Floors (Floors) One Floor Number of Stairs To Enter/Railing? No steps to enter Home Environment Standard Height Toilet,Walk in Shower,Built-In Shower Seat Home Equipment Hand Held Shower,Grab Bars Near Toilet,Grab Bars In Shower Employment Status Retired M2 PT-IP Current Condition Start: 09/17/24 09:08 Freq: NEEDED Status: Active Protocol: Document 09/17/24 11:16 MB (Rec: 09/17/24 11:49 MB [id number]) Physical Therapy Current Condition Current Condition Evaluation Date 09/17/24 Treatment Diagnosis Lap carlo with intraoperative cholangiogram 09/16/24 M3 PT-IP Subjective Start: 09/17/24 09:08 Freq: NEEDED Status: Active Protocol: Document 09/17/24 11:16 MB (Rec: 09/17/24 11:49 MB [id number]) Subjective Physical Therapy Visit Type Type Initial Evaluation Visit Start Time 11:16 Visit Stop Time 11:37 Number of BURNER MACHINE OPERATOR Visits 0 Physical Therapy Visit Comments Patient Comments PT checks on pt at 1030 and she and daughter ask for pain medication, check back at 1116 after pain medication and pt reluctantly agreeable to mobility Therapy Pain Assessment Pain When Pain Assessed During Mobility Pain Present Pain Present Pain Reported Location Right Upper Abdomen Intensity 5 Scale Used Numeric (0 - 10) M4 PT-IP Mobility and Gait Start: 09/17/24 09:08 Freq: NEEDED Status: Active Protocol: Document 09/17/24 11:16 MB (Rec: 09/17/24 11:49 MB [id number]) PT-Bed Mobility Assessment Rolling Type of Rolling Log Rolling,Roll to Right Level of Assist Contact Guard Assistance Supine to Sit Supine to Sit Contact Guard Assistance,1 Person Assistance,Bedrails Scooting Scooting to Edge of Bed Contact Guard Assistance PT-Transfer Assessment Sit to and From Stand Sit to and from Stand Minimal Assistance,1 Person Assistance,Use of Upper Extremities Equipment Transfer Assistive Device Gait Belt,Front Wheeled Walker Orthotic/Prosthetic Devices or Brace: No Transfers Transfer Destination Chair Transfer Technique Stepping Transfer Ability Level of Assist Moderate Assistance,1 Person Assistance,Use of Upper Extremities Comments Mobility Comments Pt pushes up from walker rather than pushing up from bed. BP and HR in RUE: supine 132/63, 95 and sitting 120/65, 105 and not checked again in standing d/t nsg assisting with changing brief and hygiene. Pt is able pull up brief rest of the way with min A for balance in standing, brief donned over feet in sitting with dependent assistance Gait Assessment Gait Gait Assistance Required: Moderate Assistance,1 Person Assist Distance (Feet) 1 Able to Maintain Weight Bearing Status Yes During Gait Assistive Devices Assistive Device Gait Belt,Front Wheeled Walker Gait Deviations General Gait Pattern Decreased Stride Length, Decreased Feet Clearance, Flexed Trunk,Narrow Based Gait ,Step-to Gait Factors Limiting Gait Function Factors Limiting Gait Function Decreased Activity Tolerance, Decreased Strength,Difficulty Following Directions,Limited Range of Motion,Pain,Poor Balance,Poor Safety Awareness Comments Gait Comments Poor command-following, posterior lean and PT must assist pt in moving the walker and in keeping her balance with stepping PT-Balance Assessment Sitting Balance and Reactions Static Sitting Balance Ability Fair Dynamic Sitting Balance Ability Fair Standing Balance and Reactions Static Standing Balance Ability Poor Dynamic Standing Balance Ability Poor Device Used RW M5 PT-IP Objective Assessments Start: 09/17/24 09:08 Freq: NEEDED Status: Active Protocol: Document 09/17/24 11:16 MB (Rec: 09/17/24 11:49 MB [id number]) Orientation Orientation/Cognition Level of Alertness Alert Orientation Name,Birthday,Month,Year,Place Safety Awareness Decreased Safety Awareness Comments Pt is hypoverbal Gross Range of Motion Upper Extremity ROM Impairments Defer to OT Lower Extremity ROM Impairments Functional for age Strength Comments Strength Comments Weakness in abdominal muscles and hip extensors with standing Coordination Assessment Assessment Coordination Comments NT, slow movement Sensation Assessment Comments Sensation Comments NT M6 PT-IP Treatment Start: 09/17/24 09:08 Freq: NEEDED Status: Active Protocol: Document 09/17/24 11:16 MB (Rec: 09/17/24 11:49 MB [id number]) Physical Therapy Treatment Education Education Provided Post-Op Packet,Safety M7 PT-IP Assessment and Plan Start: 09/17/24 09:08 Freq: NEEDED Status: Active Protocol: Document 09/17/24 11:16 MB (Rec: 09/17/24 11:49 MB [id number]) PT Summary Assessment and Plan Potential Rehabilitation Potential Fair Status of Condition at Evaluation Evolving Summary Impairments Pain,ROM,Strength,Balance, Cognition,Bed Mobility, Transfers,Gait,Activity Tolerance Progress Towards Goals Slow Progress due to Pain,Slow Progress due to Activity Tolerance Assessment Summary Pt is an 89 y/o female whose daughter is nearby for assessment. Pt underwent lap carlo last date. When asked if she has pain, she states she doesn't know and she won't know until she moves. She states this before and after pain medication. Overall, she is apprehensive and reluctant to move and has decreased verbalizations, command- following and safety awareness . Pt requires ongoing cues and encouragement and CGA for bed mobility, min A for STS and mod A with RW to take a few steps to the chair with the walker. Recommend 24 hour assist and PT at d/c, SNF currently. Goals Bed Mobility Goal Independent Transfer Goal Standby Assistance,Front Wheeled Walker Gait Goal Standby Assistance,Front Wheel Walker Gait Distance 75 Days to Meet Goals 5 Frequency of Treatment Frequency Of Treatment Once a Day Other frequency x1 Treatment Plan Physical Therapy Treatment Plan Bed Mobility Training,Transfer Training,Gait Training, Therapeutic Exercise,Balance Retraining,Post Op Education, Discharge Planning,Hot or Cold Pack,Neuromuscular Re-ed, Coordination Retraining,Manual Therapy Precautions Abdominal Surgery Precautions Log Roll,Lifting Restrictions, Gait Belt above Incisional Area Recommendations To Nursing Amount of Assist Needed 2 Person Assist Discharge Recommendations PT Discharge Recommendations SNF Rehab Transportation Needs at Discharge Wheelchair/Cabulance
[2024-09-17] MEDS: CARBOXYMETHYLCELLULOSE DROPS 1 DROPS EYE-BOTH (12:13)
--- NOTE | 2024-09-17 16:38 | CM.DPNOTE ---
DCP note RESTAURANT RECRUITER reviewed EMR Per provider,medically cleared to dc today. PT rec home with 24/7 assist vs SNF. RESTAURANT RECRUITER met with pt and dtr in room. pt and dtr preference is not to dc to SNF but to dc home with HH, no preference for agency. dtr to stay with pt for a few days after dc. Dtr plans to get wlker for pt at home, may consider bedside commode. one of pt's concerns is managing her clothing while going to the bathroom- pt will work with OT tomorrow for dressing concerns. pt agreed to get up and move x2 with nursing tonight and with therapies tomorrow. dtr in agreement with plan. RESTAURANT RECRUITER updated RN/provider on plan. P: HH referral/f2f/HH order needed. dc home tomorrow with dtr, will get walker for home. CM team will continue to follow JINA Moran
--- NOTE | 2024-09-17 18:38 | PM.PN.1 ---
Subjective Subjective Interval history: Pain better controlled, fearful to move. Ordered abdominal binder to try to help. She had PT today, needed assistance, recommended for SNF. Exam Vital Signs (past 8 hours): - 09/17/24 12:00 09/17/24 13:00 09/17/24 16:00 Temperature 97 F L 97.5 F L Pulse Rate 65 68 Respiratory Rate 18 16 Blood Pressure 130/61 106/46 L Pulse Oximetry 96 91 95 Oxygen Delivery Method Room Air Oxygen Flow Rate 0 0 0 09/17/24 17:00 Temperature Pulse Rate Respiratory Rate Blood Pressure Pulse Oximetry 95 Oxygen Delivery Method Room Air Oxygen Flow Rate 0 Oxygen Delivery Method Room Air Oxygen Flow Rate 0 Narrative Exam Narrative: General:? Patient is well developed and well nourished, in no distress at this time. Lungs:? CTA b/l no wheezing rhonchi or rales. Cardio:?RRR no m/r/g. Abdomen: S, appropriately tender,non distended. Extremities: No edema or joint effusions. No cyanosis or clubbing. Objective Labs 09/17/24 05:00 09/17/24 05:00 Labs: Laboratory Results - last 24 hr 09/17/24 05:00 WBC 9.7 RBC 4.15 Hgb 11.4 L Hct 34.5 L MCV 83.0 MCH 27.5 MCHC 33.1 RDW 14.6 Plt Count 152 Neut % (Auto) 85.1 H Lymph % (Auto) 6.3 L [place] % (Auto) 8.3 Eos % (Auto) 0.2 L Baso % (Auto) 0.1 Neut # (Auto) 8300 H Lymph # (Auto) 600 L [place] # (Auto) 800 Eos # (Auto) 0 Baso # (Auto) 0 Sodium 133 L Potassium 3.9 Chloride 102 Carbon Dioxide 26 BUN 13 Creatinine 0.81 Estimated GFR > 60 BUN/Creatinine Ratio 16.0 Glucose 103 Calcium 8.5 Magnesium 1.8 Total Bilirubin 1.6 H AST 51 H ALT 31 Alkaline Phosphatase 72 Total Protein 6.3 Albumin 3.3 L Globulin 3.0 Albumin/Globulin Ratio 1.1 PFSH Medical History Actinic keratoses Anorexia Anxiety Balance problem Bilateral leg numbness Bilateral lower extremity edema Cervical somatic dysfunction Chest pain on exertion Chronic bilateral low back pain without sciatica Chronic pain in left foot Chronic pain in left foot Constipation Cranial somatic dysfunction Gall bladder stones History of calculus of gallbladder Incomplete bladder emptying Insomnia Lower urinary tract symptoms (LUTS) Lumbar region somatic dysfunction Major depressive disorder Memory problem Microscopic hematuria Nausea and vomiting in adult patient Neck stiffness Orthopnea Osteoporosis Pelvic somatic dysfunction Physical deconditioning Physician orders for life-sustaining treatment (POLST) form indicates patient wish for [id number] status Postmenopausal atrophic vaginitis Right hip pain Right leg weakness RUQ abdominal tenderness Sacral region somatic dysfunction Seborrheic keratoses Segmental and somatic dysfunction of abdomen and other regions Segmental and somatic dysfunction of rib cage Short leg syndrome, left, acquired Somatic dysfunction of lower extremity Spell of dizziness Thoracic region somatic dysfunction Upper back pain, chronic Upper extremity somatic dysfunction Urge incontinence of urine Urinary retention Valgus deformity of right great toe Family History Mother Hyperlipidemia Hypertension Daughter Thyroid disease Kidney stones Social History marital status: number of children: 5 household members: none Smoking Status: Never smoker alcohol intake: current Assessment & Plan Assessment & Plan narrative: 1. Acute cholecystitis, POA - antibiotics discontinued after lap cholecystecomy on 09/15. - surgery consultation appreciated, now struggling with pain control after given larger incision than usual and elderly patient. Also fear with ambulation. Progressing with PT. - Tbili jump to 1.6 today, possibly had a passed stone / choledocholithiasis. Intra-op cholangiogram was negative. Lipase was 57 not consistent with pancreatitis. 2. Chronic Leukopenia, POA - appears stable from outpatient labs. No further evaluation at this time. 3. Elevated BP without known diagnosis of HTN - likely related to pain, continue to monitor but do not recommend antihypertensives at this time. 4. Hypomagnesemia - Mg 1.3, repleted now 1.8 today. Code: DNR as confirmed with the patient, surrogate is patient's daughter DVT: SCDs I have utilized all available immediate resources to obtain, update, or review the patient's current medications. Dispo: patient admitted under observation status. Discharge home tomorrow with home health given difficulty ambulating with PT today. Continue to ambulate overnight with nursing staff as much as possible. Additional history obtained via discussions with the general surgeon. These discussions contributed to the creation of the above assessment and plan. I have reviewed patient's presenting documentation, labs, and imaging personally. Time-Based Coding :: [TOTAL MINUTES] spent with patient and on the chart (including review of chart, obtaining history, exam, reviewing outside data, placing orders, documenting exam and treatment plan, and counseling patient) on [DATE]. Quality VTE Deep Vein Thrombosis/Pulmonary Embolism Present on Admission: No
[2024-09-18] VITALS: BP 107/60; PULSE 56; RESP 17; TEMP 35.8; O2SAT 93
[2024-09-18] MEDS: ACETAMINOPHEN 325 MG TABLET 650 MG PO ×2 (03:05→12:14)
[2024-09-18] MEDS: OXYCODONE 5 MG/5 ML ORAL SOLUTION PO (03:05)
[2024-09-18 04:00] VITALS: BP 149/79; PULSE 70; RESP 18; TEMP 35.9; O2SAT 92
[2024-09-18 06:16] LABS: Add Manual Diff / Slide Review NO; Basophils Absolute Auto 0 /uL (0-100); Basophils Percent Auto 0.2 % (0-2); Eosinophils Absolute Auto 100 /uL (0-450); Eosinophils Percent Auto 2.1 % (2-4); Hematocrit 30.8 % (36-46); Hemoglobin 10.2 g/dL (12.0-16.0); Lymphocytes Absolute Auto 500 /uL (1100-4500); Mean Corpuscular HGB Conc 33.2 % (30-36); Mean Corpuscular Hemoglobin 27.6 PG (26-34); Mean Corpuscular Volume 83.2 fL (80-100); Monocytes Absolute Auto 500 /uL (0-900); Monocytes Percent Auto 7.8 % (3-14); Neutrophils Absolute Auto 5600 /uL (1500-7000); Neutrophils Percent Auto 82.9 % (50-75); Platelet Count 146 X10^3/uL (150-400); Red Cell Distribution Width 14.5 % (11.6-14.8); White Blood Cell Count 6.7 X10^3/uL (4.5-11.0)
[2024-09-18 06:22] LABS: Alanine Aminotransferase 25 IU/L (<35); Albumin 2.9 g/dL (3.5-5.0); Albumin Globulin Ratio 0.9 (1.0-2.8); Alkaline Phosphatase 69 U/L (38-126); Aspartate Aminotransferase 39 IU/L (14-36); BUN Creatinine Ratio 20.8 (6-22); Bilirubin Total 0.9 mg/dL (0.2-1.3); Blood Urea Nitrogen 16 mg/dL (7-17); Calcium 8.5 mg/dL (8.4-10.2); Carbon Dioxide 28 mmol/L (22-32); Chloride 103 mmol/L (98-107); Estimated Glomerular Filt Rate > 60 mL/min (>60); Globulin 3.1 g/dL (1.7-4.1); Glucose 91 mg/dL (80-110); HEMOLYSIS < 15 (0-50); Magnesium 1.8 mg/dL (1.6-2.3); Potassium 3.7 mmol/L (3.4-5.1); Sodium 135 mmol/L (137-145)
[2024-09-18 08:00] VITALS: BP 114/62; PULSE 64; RESP 16; TEMP 35.8; O2SAT 93
--- NOTE | 2024-09-18 08:57 | PM.DS.1 ---
History of Present Illness History of Present Illness Date Patient Seen: 09/18/24 Chief complaint: sent by DI from pcp, worsening gall gallbladder Narrative: This is an 89-year-old female with no significant past medical history, on no chronic medications other than supplements who presented with worsening right upper quadrant pain over the past week. Patient states that she has been dealing with gallbladder pain since 2022, with near constant right upper quadrant, right lower quadrant, and right scapular pain which have varied over the course of the last couple of years. She has intermittent bloating after meals, but the pain is fairly constant and not necessarily related to food. Over the past week at his been worse, this time actually moving somewhat into her left scapula, with continued bloating. She had an ultrasound with her primary care provider which showed evidence of acute cholecystitis and she was referred to the emergency room. Patient was admitted to the medicine service with surgery plan for cholecystectomy. CBD was minimally dilated, Tbili was 1.5 2 days ago, 1.1 today, and lipase 57. The patient denies any chest pain, shortness on breath, dyspnea on exertion, or lower extremity edema. Other than her continued bloating and right upper quadrant pain she denies any medical problems. She lives alone, drives, and does all of her ADLs by herself without assistance. Discharge Providers Provider Date of admission: 09/14/24 12:45 Discharge Date: 09/18/24 Primary care physician: Stephanie Arriaga FREELANCE PHOTOGRAPHER- Consults: 09/17/24 08:12 Consult to Physical Therapy Evaluate & Treat Comment: Physician Instructions: Evaluate and Treat 09/17/24 16:22 Consult to Occupational Therapy Evaluate & Treat Comment: Physician Instructions: Evaluate and treat Discharge provider: Jackson Mendez DO Summary Hospital Course Discharge Diagnosis: 1. Acute cholecystitis, POA 2. Chronic Leukopenia, POA 3. Elevated BP without known diagnosis of HTN, POA, resolved 4. Hypomagnesemia, POA, improved Hospital Course: This is an 89-year-old female with no significant past medical history who was admitted with multiple months of ongoing biliary symptoms after an outpatient ultrasound showed acute cholecystitis. She was initially started on antibiotics, and taken for laparoscopic cholecystectomy. Her course was prolonged due to a larger than normal incision along with difficult to control pain and fear of ambulation after surgery. Therapy consults were ordered, and she had slow gradual improvement in her pain and mobility. She was discharged home on September 18, home with home health, with outpatient prescriptions for muscle relaxant and as needed opiates. She should follow up with the surgery clinic after discharge per their recommendations, no other changes to her chronic medications are recommended the time of discharge. She did have a chronic leukopenia which required no further inpatient evaluation, and elevated blood pressures which improved over the course of her stay and were likely due to pain. She also had low magnesium which was repleted and improved as her diet was increased after surgery. Time Spent with Patient Time spent: Less than 30 minutes Exam Vital Signs (past 8 hours): - 09/18/24 04:00 09/18/24 04:00 09/18/24 08:00 Temperature 96.6 F L 96.4 F L Pulse Rate 70 64 Respiratory Rate 18 16 Blood Pressure 149/79 H 114/62 Pulse Oximetry 92 92 93 Oxygen Delivery Method Room Air Oxygen Flow Rate 0 0 Oxygen Delivery Method Room Air Oxygen Flow Rate 0 Narrative Exam Narrative: General:? Patient is well developed and well nourished, in no distress at this time. Lungs:? CTA b/l no wheezing rhonchi or rales. Cardio:?RRR no m/r/g. Abdomen: S, appropriately tender,non distended. Extremities: No edema or joint effusions. No cyanosis or clubbing. Objective Labs 09/18/24 04:50 09/18/24 04:50 Labs: Laboratory Results - last 24 hr 09/18/24 04:50 WBC 6.7 RBC 3.70 L Hgb 10.2 L Hct 30.8 L MCV 83.2 MCH 27.6 MCHC 33.2 RDW 14.5 Plt Count 146 L Neut % (Auto) 82.9 H Lymph % (Auto) 7.0 L [place] % (Auto) 7.8 Eos % (Auto) 2.1 Baso % (Auto) 0.2 Neut # (Auto) 5600 Lymph # (Auto) 500 L [place] # (Auto) 500 Eos # (Auto) 100 Baso # (Auto) 0 Sodium 135 L Potassium 3.7 Chloride 103 Carbon Dioxide 28 BUN 16 Creatinine 0.77 Estimated GFR > 60 BUN/Creatinine Ratio 20.8 Glucose 91 Calcium 8.5 Magnesium 1.8 Total Bilirubin 0.9 AST 39 H ALT 25 Alkaline Phosphatase 69 Total Protein 6.0 L Albumin 2.9 L Globulin 3.1 Albumin/Globulin Ratio 0.9 L PFSH Medical History Actinic keratoses Anorexia Anxiety Balance problem Bilateral leg numbness Bilateral lower extremity edema Cervical somatic dysfunction Chest pain on exertion Chronic bilateral low back pain without sciatica Chronic pain in left foot Chronic pain in left foot Constipation Cranial somatic dysfunction Gall bladder stones History of calculus of gallbladder Incomplete bladder emptying Insomnia Lower urinary tract symptoms (LUTS) Lumbar region somatic dysfunction Major depressive disorder Memory problem Microscopic hematuria Nausea and vomiting in adult patient Neck stiffness Orthopnea Osteoporosis Pelvic somatic dysfunction Physical deconditioning Physician orders for life-sustaining treatment (POLST) form indicates patient wish for [id number]-ogo-[id number] status Postmenopausal atrophic vaginitis Right hip pain Right leg weakness RUQ abdominal tenderness Sacral region somatic dysfunction Seborrheic keratoses Segmental and somatic dysfunction of abdomen and other regions Segmental and somatic dysfunction of rib cage Short leg syndrome, left, acquired Somatic dysfunction of lower extremity Spell of dizziness Thoracic region somatic dysfunction Upper back pain, chronic Upper extremity somatic dysfunction Urge incontinence of urine Urinary retention Valgus deformity of right great toe Family History Mother Hyperlipidemia Hypertension Daughter Thyroid disease Kidney stones Social History marital status: number of children: 5 household members: none Smoking Status: Never smoker alcohol intake: current Discharge Plan Discharge Plan Patient Disposition: Home Health Service Provider Discharge Comment: You were admitted to the hospital for an infection in your gallbladder. Please follow up with the general surgery clinic after discharge to check on your incisions and outpatient follow up. Home health care referral placed. Recommend continued therapies at home. Discharge orders & Medications Prescriptions: New methocarbamol 500 mg Tablet 500 mg PO QID PRN (Reason: Muscle Spasm) 7 Days Qty: 30 0RF oxycodone 5 mg tablet 5 mg PO Q6H PRN (Reason: pain) 7 Days Qty: 30 0RF Continued thiamine HCl (vitamin B1) 100 mg tablet 100 mg PO DAILY vitamin E (dl, acetate) 180 mg (400 unit) capsule 180 mg PO DAILY digestive enzymes Capsule 1 cap PO DAILY Rx Instructions: administer with food; swallow whole; do not crush/chew/dissolve/break/cut biotin 1 mg capsule 1 mg PO DAILY Vitamin D3 1 cap PO DAILY Alpha Lipoic Acid 600 mg capsule 1 tab PO DAILY Maq. L-Threonate 1 tab PO DAILY Aller Clear 1 drp EYE-RIGHT DAILY (DME) DISABLED PARKING PERMIT See Rx Instructions .ROUTE .MEDSUPPLY Qty: 1 0RF Rx Instructions: I FIND THIS PATIENT TO BE MEDICALLY DISABLED AND QUALIFIED FOR DISABLE PARKING INDICATED, AND SIGNED ON THE ACCOMPANYING [employer] APPLICATION FOR INDIVIDUALS Follow up/Referrals: Stephanie Arriaga FNP-BC [Primary Care Provider] - Diet/Activity/Treatments Diet: Diet as Tolerated and Regular Activity: No heavy lifting 10 lbs restriction Visit Report/Discharge Packet Instructions: DI for Laparoscopy, DI for Prescription Opioid Use, Methocarbamol Stand Alone Forms: Patient Portal/API, Stroke Signs & Symptoms Discharge Data Primary Care Provider: Stephanie Arriaga Attending Provider: Jackson Mendez Admeleanor Date/Time: 09/14/24 12:45 Quality VTE Deep Vein Thrombosis/Pulmonary Embolism Present on Admission: No
--- NOTE | 2024-09-18 09:39 | PT-IP ANOTE ---
PT reads SW note from yesterday and checks in with pt and daughter. Pt is up in the chair and daughter states she is getting up better and has walked to restroom. They have walker for home. They have no further skilled PT needs or questions. Pt to d/c home with daughter and HH today.
--- NOTE | 2024-09-18 09:47 | PC.NURSE ---
Patient was initially groggy this morning, she is awake now and sitting up in the chair. She denies pain or discomfort and will be discharging home today. She will work with therapies to move around and ambulate. Daughter is in room and attentive to patients needs.
--- NOTE | 2024-09-18 11:00 | OT.IP.EVAL ---
Current Diagnoses Calculus of gallbladder with acute cholecystitis without obstruction (09/14/24) Calculus of gallbladder without cholecystitis without obstruction (09/14/24) Right upper quadrant abdominal tenderness (09/14/24) Surgery Performed Operation Date: 09/15/24 15:15 Actual Procedures p Laparoscopic Cholecystectomy with IOC - Wendy Joseph MD Past Medical History (Last Reviewed 03/12/23 @ 17:28 by Mina Bo DO) Actinic keratoses Anorexia Anxiety Balance problem Bilateral leg numbness Bilateral lower extremity edema Cervical somatic dysfunction Chest pain on exertion Chronic bilateral low back pain without sciatica Chronic pain in left foot Chronic pain in left foot Constipation Cranial somatic dysfunction Gall bladder stones History of calculus of gallbladder Incomplete bladder emptying Insomnia Lower urinary tract symptoms (LUTS) Lumbar region somatic dysfunction Major depressive disorder Memory problem Microscopic hematuria Nausea and vomiting in adult patient Neck stiffness Orthopnea Osteoporosis Pelvic somatic dysfunction Physical deconditioning Physician orders for life-sustaining treatment (POLST) form indicates patient wish for tc-[id number] status Postmenopausal atrophic vaginitis Right hip pain Right leg weakness RUQ abdominal tenderness Sacral region somatic dysfunction Seborrheic keratoses Segmental and somatic dysfunction of abdomen and other regions Segmental and somatic dysfunction of rib cage Short leg syndrome, left, acquired Somatic dysfunction of lower extremity Spell of dizziness Thoracic region somatic dysfunction Upper back pain, chronic Upper extremity somatic dysfunction Urge incontinence of urine Urinary retention Valgus deformity of right great toe Occupational Therapy Inpatient Evaluation/Re-Eval M1 PT/OT-IP Prior Functional Status Start: 09/17/24 09:08 Freq: NEEDED Status: Discharge Protocol: Document 09/18/24 11:00 GERARDO (Rec: 09/18/24 13:32 GERARDO [id number]) Medical Review Prior Functional Status Medical History Reviewed Yes Communication Pt communicates some PLOF Mobility and Gait Pt reports I without AD Activities of Daily Living and IADL's Pt reports I without AD Social History Household Members none Living Arrangements Apartment/Condo Number of Floors (Floors) One Floor Number of Stairs To Enter/Railing? No steps to enter Home Environment High Toilet,Walk in Shower, Built-In Shower Seat Home Equipment Hand Held Shower,Grab Bars Near Toilet,Grab Bars In Shower Employment Status Retired Additional Social History Comment Pt reports that she drives some locally, but otherwise has assistance from a friend. Pts dtr will be staying pt on d/c as long as I am needed. M2 OT-IP Current Condition Start: 09/18/24 13:28 Freq: Status: Discharge Protocol: Document 09/18/24 11:00 DAVIDARVIND (Rec: 09/18/24 13:32 [facility] [id number]) Occupational Therapy Current Condition Current Condition Evaluation Date 09/18/24 Treatment Diagnosis acute cholecystitis s/p laproscopic cholecystectomy; weakness Diagnosis Onset Date 09/16/24 M3 OT- IP Subjective and Pain Start: 09/18/24 13:28 Freq: Status: Discharge Protocol: Document 09/18/24 11:00 DAVIDSUDHEERREGINALDOCONRADO (Rec: 09/18/24 13:32 [facility] [id number]) OT- Subjective Occupational Therapy Visit Type Type Initial Evaluation Visit Start Time 11:00 Visit Stop Time 11:33 Notes Pt sitting up in chair with dtr present on entrance of OT. Pt agreeable to participating in OT eval. Occupational Therapy Visit Comments Patient Comments To go home. Pt is concerned with clothing mgmt during toileting. OT Pain Assessment Pain When Pain Assessed During Mobility Pain Present Pain Present Pain Reported Location Right Upper Abdomen Intensity 8 Scale Used Numeric (0 - 10) M4 OT- IP ADL's Start: 09/18/24 13:28 Freq: Status: Discharge Protocol: Document 09/18/24 11:00 DAVIDARVIND (Rec: 09/18/24 13:48 [facility] [id number]) OT [id number] Comments OT Self-Feeding Comments not observed OT ADL-Grooming General Evaluation Grooming Ability Standby Assistance Comments OT Grooming Comments pt performs seated on set up of items OT ADL-Oral Care Comments Oral Care Comments declined to perform OT ADL-Dressing General Eval Upper Body Dressing Ability Contact Guard Assistance Lower Body Dressing Ability Minimal Assistance Areas Needing Assistance Underpants/Brief,Pants/Shorts, Socks Assistive Devices Dressing Assistive Devices It Applications Developer,Sock Aid Comments OT Dressing Comments pt sitting up in chair. OT educated pt on use AE for LB dressing. Pt then used dairy technician to doff sock with min A, sock aid to don sock with min A, dairy technician to doff brief with min A, and dairy technician to don brief with min A. Dtr present during education of AE. Pt would benefit from continued ed. OT ADL-Toileting General Evaluation Toileting Ability Contact Guard Assistance Areas Needing Assistance Manage Clothing Comments OT Toileting Comments pt is able to manage brief and hygiene. pt expresses concern about being able to manage her clothing during toileting especially being fearful of having pain at surgical site. pt performs safely with CGA. OT ADL-Bathing Comments OT Bathing Comments pt declined M5 OT- IP IADL's Start: 09/18/24 13:28 Freq: Status: Discharge Protocol: Document 09/18/24 11:00 [facility] (Rec: 09/18/24 13:48 [facility] [id number]) OT-Instrumental Activities of Daily Living Home Safety Awareness Awareness of Need for Assistance at Home Good Awareness Ability to Problem Solve Emergency Able to Problem Solve Situations Medication Management Medication Management No Deficits Identified Money Management Money Management No Deficits Identified Meal Preparation Meal Preparation Caregiver Provides Assist Meal Preparation Comments pts dtr to assist Liver Trimmer Liver Trimmer Caregiver Provides Assist Liver Trimmer Comments pts dtr to assist Driving Driving Caregiver Provides Supervision Driving Comments pts dtr to assist M6 OT- IP Functional Cognition Start: 09/18/24 13:28 Freq: Status: Discharge Protocol: Document 09/18/24 11:00 [facility] (Rec: 09/18/24 13:48 [facility] [id number]) Cognitive Factors Limiting Selfcare Function Cognitive Ability Level of Alertness Alert Patient Orientation Name,Age,Birthday,Month,Date, Year,Day of Week,Place, Situation Attention Span Ability Capable of Focused Attention, Capable of Sustained Attention Ability to Follow Commands Able to Follow One Step Commands,Able to Follow Multi- Step Commands Memory Description No Deficits Noted Safety Awareness No Deficits Noted Problem Solving Ability No deficits Noted Executive Function Ability No Deficits Noted Abstract Thinking Ability No Deficits Noted OT- Vision and Hearing OT- Hearing Assessment OT- Hearing Assessment WFL OT- Vision Assessment Visual Acuity WFL,Glasses All The Time M7 OT- IP Mobility and Balance Start: 09/18/24 13:28 Freq: Status: Discharge Protocol: Document 09/18/24 11:00 [facility] (Rec: 09/18/24 13:48 [facility] [id number]) OT-Transfer Assessment Sit to and From Stand Sit to and from Stand Contact Guard Assistance Transfers Transfer Ability Contact Guard Assistance Technique Transfer Destination Chair Transfer Technique Stand Step Pivot Devices Transfer Assistive Devices Gait Belt,Front Wheeled Walker Comments Mobility Comments pt performs multiple times for practicing doff/don of brief. pt with cga each time. OT- Gait Assessment Gait Gait Assistance Required: Contact Guard Assist Distance (Feet) 15 Assistive Devices Assistive Device Gait Belt,Front Wheeled Walker Comments Gait Ability Comments pt amb from chair to sink for sink side ADLs with CGA. pt performs slowly. OT- Balance Assessment Sitting Balance and Reactions Static Sitting Balance Ability Good Dynamic Sitting Balance Ability Fair Standing Balance and Reactions Static Standing Balance Ability Fair M8 OT- IP Objective Assessments Start: 09/18/24 13:28 Freq: Status: Discharge Protocol: Document 09/18/24 11:00 GERARDO (Rec: 09/18/24 13:48 [facility] [id number][facility] OT Gross Range of Motion Upper Extremity Range of Motion Assessment Within Functional Limits OT Strength Upper Extremity Strength Shoulder L 4-, R 4 Elbow B 4 Hand B 4 Hand Compressor House Operator Strength Hand Dominance Right OT- Coordination Assessment Upper Extremity Finger to Nose Test Within Functional Limits Finger Tapping Test Within Functional Limits OT-Muscle Tone Assessment Muscle Tone WNL Yes M9 OT- IP Assessment and Plan Start: 09/18/24 13:28 Freq: Status: Discharge Protocol: Document 09/18/24 11:00 GERARDO (Rec: 09/18/24 13:48 [facility] [id number][facility] OT Summary Assessment and Plan Potential Rehabilitation Potential Excellent Analytic Complexity at Evaluation Low Summary OT Impairments Pain,Strength,Balance, Functional Mobility,Grooming, Dressing,Toileting,Bathing, Toilet Transfers,Shower Transfers,Activity Tolerance Progress Towards Goals Progressing Toward Goals Assessment Summary Pt is 89 yo F who presented to ED with abdominal pain. Pt had sx on 09/16 for laptaroscopic cholecystectomy. Pt lives alone and was I or mod I at baseline for all tasks. Pts dtr is present and will stay with her mother on d /c as long as she is needed. Pt expressed concerns about safety with dressing especially toileting. OT educated pt on technique with AE for LB dressing and two clothespin technique for keeping clothes from falling when standing up from toilet. Pt demonstrate LB AE with min A. Pt was left up in chair with all needs met and in reach and dtr present. Pt is appropriate for skilled OT services. Goals Grooming Goal Independent Dressing Goal Independent Toileting Goal Independent Bathing Goal Contact Guard Assistance Toilet Transfer Goal Independent Shower Transfer Goal Contact Guard Assistance Days to Meet Goals 5 Frequency of Treatment Other frequency 5x/wk Treatment Plan OT Treatment Plan ADL Training,Functional Mobility,Therapeutic Exercises ,Patient/Family Education, Discharge Planning Discharge Recommendations OT Discharge Recommendations Home with Assistance,Home Health Transportation Needs at Discharge Private Vehicle
--- NOTE | 2024-09-18 11:08 | CM.DPNOTE ---
DCP note MICE RAISER reviewed EMR Per provider, cleared to dc home with dtr and HH today. per rotating computer education teacher calendar, initially contacted [facility] for referral. Per Lolis at [facility], not contracted with [facility]. Per rehan at [facility], will seek out single case agreement, can accept pt. MICE RAISER sent initial referral information (FS/H&P/PT eval) as well as completed f2f and HH order/available dc sum draft. MICE RAISER met with pt and dtr in room. dtr reports getting walker for home. denies other DCP/CM questions. eager to work with OT when available. gave copy of [facility] brochure. MICE RAISER updated OT/RN. P: Dc today with [facility] to follow for RN/PT/OT. OP f/u recommended. no further CM needs at this time, will continue to follow as needed JINA Nguyen
--- NOTE | 2024-09-18 15:38 | P.PN_ITS ---
Subjective Subjective Date Patient Seen: 09/18/24 Time Patient Seen: 09:58 Interval history: Patient overall feeling better today. Pain is better controlled. She has been taking intermittent muscle relaxant for pain control. She was able to get out of the bed and get going better today. Exam Vital Signs (past 8 hours): - 09/18/24 08:00 09/18/24 09:00 Temperature 96.4 F L Pulse Rate 64 Respiratory Rate 16 Blood Pressure 114/62 Pulse Oximetry 93 Oxygen Delivery Method Room Air Oxygen Flow Rate 0 Oxygen Delivery Method Room Air Oxygen Flow Rate 0 Narrative Exam Narrative: Const General: cooperative, No acute distress, frail appearing and ill appearing Orientation: alert, awake and oriented x3 HENMT Head: normal to inspection Eyes General: appearance normal, both eyes and all related structures Neck Neck: normal visual inspection Chest Chest: normal inspection of the chest Resp Effort & Inspection: normal respiratory effort Cardio Rate: regular rate GI Inspection: normal to inspection, distended and incision (Incisions C/D/I) Palpation: soft and tender (Appropriate tenderness to palpation) Back/Spine/Pelvis Back: normal to inspection Skin General: no rashes or lesions noted Neuro General: patient alert, patient awake and patient oriented x3 Cognition: normal cognition Speech: speech normal Extrem General: normal to inspection Psych Appearance: grossly normal Mental Status: mental status grossly normal Objective Labs 09/18/24 04:50 09/18/24 04:50 Labs: Laboratory Results - last 24 hr 09/18/24 04:50 WBC 6.7 RBC 3.70 L Hgb 10.2 L Hct 30.8 L MCV 83.2 MCH 27.6 MCHC 33.2 RDW 14.5 Plt Count 146 L Neut % (Auto) 82.9 H Lymph % (Auto) 7.0 L Garza % (Auto) 7.8 Eos % (Auto) 2.1 Baso % (Auto) 0.2 Neut # (Auto) 5600 Lymph # (Auto) 500 L Garza # (Auto) 500 Eos # (Auto) 100 Baso # (Auto) 0 Sodium 135 L Potassium 3.7 Chloride 103 Carbon Dioxide 28 BUN 16 Creatinine 0.77 Estimated GFR > 60 BUN/Creatinine Ratio 20.8 Glucose 91 Calcium 8.5 Magnesium 1.8 Total Bilirubin 0.9 AST 39 H ALT 25 Alkaline Phosphatase 69 Total Protein 6.0 L Albumin 2.9 L Globulin 3.1 Albumin/Globulin Ratio 0.9 L PFSH Medical History Actinic keratoses Anorexia Anxiety Balance problem Bilateral leg numbness Bilateral lower extremity edema Cervical somatic dysfunction Chest pain on exertion Chronic bilateral low back pain without sciatica Chronic pain in left foot Chronic pain in left foot Constipation Cranial somatic dysfunction Gall bladder stones History of calculus of gallbladder Incomplete bladder emptying Insomnia Lower urinary tract symptoms (LUTS) Lumbar region somatic dysfunction Major depressive disorder Memory problem Microscopic hematuria Nausea and vomiting in adult patient Neck stiffness Orthopnea Osteoporosis Pelvic somatic dysfunction Physical deconditioning Physician orders for life-sustaining treatment (POLST) form indicates patient wish for [id number]-[id number] status Postmenopausal atrophic vaginitis Right hip pain Right leg weakness RUQ abdominal tenderness Sacral region somatic dysfunction Seborrheic keratoses Segmental and somatic dysfunction of abdomen and other regions Segmental and somatic dysfunction of rib cage Short leg syndrome, left, acquired Somatic dysfunction of lower extremity Spell of dizziness Thoracic region somatic dysfunction Upper back pain, chronic Upper extremity somatic dysfunction Urge incontinence of urine Urinary retention Valgus deformity of right great toe Family History Mother Hyperlipidemia Hypertension Daughter Thyroid disease Kidney stones Social History marital status: number of children: 5 household members: none Smoking Status: Never smoker alcohol intake: current Assessment & Plan Assessment and plan (1) Acute calculous cholecystitis: Status: Acute (2) S/P laparoscopic cholecystectomy: Status: Acute Assessment & Plan narrative: This is a 89-year-old woman who is postop day 3 s/p laparoscopic cholecystectomy for likely chronic cholecystitis. 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
--- NOTE | 2024-10-17 10:24 | PC.NURSE ---
Mag Sulfate drip completed at 1302 on 09/16/24.
== END 2024-09-18 12:45 | disposition home health service (06) ==
LOC: ED 12:24 → AC 12:46
PROVIDERS: Surgery; Admitting Provider Internal Medicine; Emergency Provider Emergency Medicine; Family Provider Student in an Organized Health Care Education/Training Program; PCP Nurse Practitioner Family; Referring Provider Emergency Medicine; Visit Provider Internal Medicine
PROC: 0FT44ZZ Resection of Gallbladder, Percutaneous Endoscopic Approach (ICD-10-PCS; CPT 47563; principal; 2024-09-15 15:15)
DX: K80.10 Calculus of gallbladder with chronic cholecystitis without obstruction (principal); Z66 Do not resuscitate; K80.80 Other cholelithiasis without obstruction
CPT/HCPCS: 47563; 36415; 74300; 76705; 80053; 82962; 83690; 83735; 85025; 85610; 85730; 93005; 96361; 96365; 96367; 96375; 96376; 97162; 97165; 97535; 99282; 99284; G0378; A9270; J0330; J1100; J1171; J2270; J2405; J2543; J2704; J3010; J3410; J3475; J3490; Q9967

== ENCOUNTER → 2025-03-20 09:26 | Outpatient (CLI) | payer OTHER, MEDICAID, SELFPAY ==
--- NOTE | 2025-03-26 08:19 | DI.ECHO.S_ITS ---
Name: DUANE JAQUEZ?Study Date: 03/26/2025, 9: 25 AM : 1935? BP: 158 / 89 mmHg Gender: Female?Height: 60 in Age: 89 Years? Weight: 107 lb BSA: 1.43 m?? Ordering: JUSTEN VILLATORO Referring: JUSTEN VILLATORO Clinician: Peter Leone Reason For Study: CHEST PAIN History: Summary Statements 1) Normal left ventricular thickness, size, wall motion, and systolic function (EF 65-70%). 2) Normal right ventricular size and function. 3) Posterior leaflet of the mitralvalve has mild prolapse. 4) Moderate, anteriorly directed mitralregurgitation present. 5) No prior Echo available for comparison. Procedure: A two-dimensional transthoracic echocardiogram with color flow and Doppler was performed.The study quality was technically adequate. Comparison is made with the echocardiogram of 01/06/2023. The patient was in normal sinus rhythm during the exam. Left Ventricle: The left ventricle is normal in size. There is normal left ventricular wall thickness. Proximal septal thickening is noted. There is no ventricular septal defect visualized. The ejection fraction is estimated to be 65-70%. There are no focal wall motion abnormalities. Diastolic parameters suggest probable normal left ventricular diastolic function and normal filling pressures. Right Ventricle: The right ventricle is normal in size and function. Atria: The left atrium is severely dilated. Right atrial size is normal. Mitral Valve:There is moderate mitral annular calcification. The mitral valve leaflets appear mildly thickened. There is mild mitral valve prolapse. There is prolapse of the posterior mitral valve leaflet(s). There is moderate mitral regurgitation. The mitral regurgitant jet is eccentrically directed. Aortic Valve:The aortic valve is trileaflet. The aortic valve is mildly calcified. There is no hemodynamically significant valvularaortic stenosis. No aortic regurgitation is present. Tricuspid Valve:The tricuspid valve leaflets are thin and pliable. There is mild tricuspid regurgitation. Pulmonic Valve:The pulmonic valve leaflets are thin and pliable;valve motion is normal. There is mild to moderate pulmonic regurgitation. Great Vessels:The aortic root is normal size. The dimensions of the ascending aorta are normal. The pulmonary artery is normal size.The inferior vena cava was not visualized. Pericardium/ Pleura:There is no pericardial effusion. 2D and M-Mode Measurements and Calculations LVIDd: 4.0 cm AoV Openin.86 cm LVIDs: 2.41 cm LVOT diam: 1.75 cm IVSd: 1.02 cm Ao root diam: 2.8 cm LVPWd: 1.03 cm asc Aorta Diam: 3.4 cm LV puckett. diameter/BSA (cm/m^2): 2.8 LV sys. diameter/BSA (cm/m^2): 1.68 EPSS: 0.65 cm RVD1 (basal): 3.0 cm RVD2 (mid): 2.41 cm TAPSE: 2.8 cm LA A4 area: 25.2 cm?? RA area: 12.3 cm?? LA A2 area: 25.2 cm?? RA long axis: 4.9 cm LA length (vol): 5.6 cm RA vol: 26.2 ml LA vol: 96.4 ml RA : 18.3 ml/m?? LA vol index: 67.4 ml/m?? Doppler Measurements and Calculations Ao V2 max: 180.5 cm/sec LVOT Max Gume: 79.4 cm/sec Ao V2 mean: 129.6 cm/sec LV V1 max P.5 mmHg Ao V2 VTI: 47.9 cm LV V1 VTI: 20.9 cm Ao max P.0 mmHg SV(LVOT): 50.3 ml Ao mean P.5 mmHg SHILA(I,D): 1.05 cm?? SHILA(V,D): 1.06 cm?? SHILA indexed to BSA (cm^2/m^2): 0.73 sev ratio: 0.44 MV E max gume: 113.3 cm/sec MV dec time: 0.18 sec MV A max gume: 62.7 cm/sec MV mean P.9 mmHg MV E/A: 1.81 MVA(VTI): 1.36 cm?? TR max gume: 368.4 cm/sec PA mean P.96 mmHg TR max P.3 mmHg PA V2 max: 67.6 cm/sec Electronically signed by: Justen Villatoro? 03/26/2025, 9: 23 PM
--- NOTE | 2025-03-26 18:11 | DI.NM.S_ITS ---
DATE OF SERVICE: 03/20/2025 NUCLEAR CARDIOLOGY MYOCARDIAL PERFUSION STUDY PROCEDURE: Pharmacologic vasodilator stress and rest myocardial perfusion imaging with gating to assess ejection fraction and regional wall motion. ORDERING PROVIDER: Dr. Julio César Villatoro. INDICATIONS: The patient is an 89-year-old female with episodic chest discomfort and fatigue. CARDIAC STRESS: Per protocol, 0.4 mg of regadenoson was infused with a normal hemodynamic response. The patient developed slight dyspnea but no chest discomfort. The resting ECG showed sinus rhythm with normal ST segments. With stress, there were no significant ST-segment shifts. There were rare isolated PVCs but no complex ventricular ectopy. Per protocol, 26.8 millicuries of technetium-99m Myoview was injected and she was imaged 15 minutes later using a gated SPECT acquisition protocol. Six days prior while at rest, she had been injected with an additional 26.9 millicuries of technetium-99m Myoview and imaged 15 minutes later, again using a gated SPECT acquisition protocol. FINDINGS: 1. Raw Data: There is fair myocardial tracer uptake with mild breast shadows are noted. The lung/heart ratio is normal at 0.30 with a normal TID ratio of 1.03. 2. Quantitated gated SPECT: Post-stress ejection fraction is estimated at 80% without any focal wall motion abnormality and specifically the distal left ventricle and apex have brisk contractility. The resting ejection fraction is 82% with a identical contraction pattern and a normal resting end-diastolic volume of 65 mL. 3. Myocardial perfusion imaging: Post-stress supine images show reduced tracer activity in the distal third of the left ventricle including the apex and periapical segments in a pattern suggestive of breast attenuation artifact but the patient was unable to lie prone to assess for this. There are no discreet focal perfusion defects. The resting images show a similar perfusion pattern although with a more prominent perfusion defect in the distal third of the left ventricle without any areas of improvement. IMPRESSION: 1. Probable normal myocardial perfusion study. 2. There is a mild, fixed perfusion defect in the distal third of the left ventricle in a pattern suggestive of breast attenuation artifact although the patient was unable to lie prone. While a previous nontransmural infarction cannot be entirely excluded, the absence of any wall motion abnormality would mitigate against this. There is no reversible perfusion defect to suggest any myocardial ischemia. 3. Vigorous left ventricular systolic function with relatively small left ventricular volumes and no focal wall motion abnormality. 4. No angina or ECG evidence of myocardial ischemia. She had rare isolated PVCs but no complex ectopy. 5. While the images from the previous perfusion study from 03/11/2023 are not available for visual review, the previous report suggests a similar description with the resting images having a moderate perfusion defect in the distal anterior wall and apex that was felt likely to be an attenuation artifact but no obvious perfusion defect on the stress image. The previous post-stress ejection fraction was 83% with a resting ejection fraction of 93% and an end-diastolic volume of 57 mL suggesting the absence of any significant change from the previous study. Sarah Winters - HERNANDEZ/dany/TAHIR doc#: [id number]/job#: [id number] dd: 03/26/2025 17:04:00 dt: 03/26/2025 17:56:00 DICTATING MD/COPIES TO: Nader Stafford MD; Dr. Julio César Villatoro COPIES MNE: BHANU; ; Dr. Julio César Villatoro
== END ==
LOC: NUCM 09:27
PROVIDERS: Family Provider Student in an Organized Health Care Education/Training Program; PCP Family Medicine; Referring Provider Family Medicine; Visit Provider Internal Medicine Cardiovascular Disease
DX: R07.9 Chest pain, unspecified (principal)
CPT/HCPCS: 78452; 93017; A9502; J2785

== ENCOUNTER → 2025-03-29 08:24 | Outpatient (CLI) | payer OTHER, MEDICAID, SELFPAY ==
--- NOTE | 2025-03-29 08:26 | DI.CT.S_ITS ---
PROCEDURE: CT ABDOMEN W CON INDICATIONS: S/p Cholecystectomy TECHNIQUE: After the administration of intravenous contrast, 5 mm thick sections acquired from the diaphragms to the iliac crests. 5 mm thick coronal and sagittal reformats were acquired. For radiation dose reduction, the following was used: automated exposure control, adjustment of mA and/or kV according to patient size. COMPARISON: None. FINDINGS: Image quality: Diagnostic. Lower Chest: No significant findings. ABDOMEN: Liver: No solid mass. Gallbladder: Prior cholecystectomy. Adjacent to the surgical clips and common bile duct there is a 2.5 x 2.7 cm water density cyst like structure, also located in the area of the duodenum. Uncertain etiology. No soft tissue mass or perceptible mural thickening or inflammation is associated. Biliary ducts: No biliary dilation. Pancreas: No ductal dilation. Spleen: Size is within normal limits. Adrenal Glands: No adrenal nodules. Kidneys and Ureters: No hydronephrosis. No solid mass. No complex renal cystic lesion which requires follow up. Stomach and Bowel: Normal colonic caliber, without significant wall thickening. Peritoneum: No abnormal intraperitoneal fluid. No free air. Ventral Wall: No hernia. Abdominal Nodes: No retroperitoneal or mesenteric adenopathy by size criteria. Vessels: Aorta and inferior vena cava are normal in size. Bones: No aggressive osseous abnormality. IMPRESSION: Postsurgical changes of cholecystectomy, performed 09/15/24. Water density cyst- like structure present adjacent to the operative bed of uncertain etiology and clinical significance measuring 2.7 x 2.5 cm. This lies in the expected position of the common bile duct, the pancreatic head margin, and the duodenum crossing that area. No associated soft tissue mass or inflammation. Dictated by: Akbar King M.D. on 03/29/2025 at 12:06 Approved by: Akbar King M.D. on 03/29/2025 at 12:11
[2025-03-29 08:54] LABS: Estimated Glomerular Filt Rate > 60 mL/min (>60)
== END ==
PROVIDERS: Family Provider Student in an Organized Health Care Education/Training Program; PCP Family Medicine; Referring Provider Family Medicine; Visit Provider Family Medicine
DX: K91.5 Postcholecystectomy syndrome (principal); R10.11 Right upper quadrant pain
CPT/HCPCS: 36415; 74160; 82565; Q9967

== ENCOUNTER → 2025-04-16 10:17 | Outpatient (CLI) | payer OTHER, MEDICAID, SELFPAY ==
--- NOTE | 2025-04-16 10:19 | DI.RAD.S_ITS ---
PROCEDURE: XR CERVICAL SPINE 2V OR 3V INDICATIONS: Cervicalgia TECHNIQUE: 4 view(s) of the cervical spine were acquired. COMPARISON: [facility], CT, CT CERVICAL SPINE WO CON, 10/17/2022, 14:47. [facility], CR, XR CLAVICLE LT, 10/17/2022, 14:48. FINDINGS: Bones: No fractures or dislocations to the superior endplate of T1 level. The lateral masses of C1 appear intact on the odontoid view. No suspicious bony lesions. Stable alignment with minimal anterolisthesis of C6 on C7 and C7 on T1. No acute compression fractures. Moderate-severe multilevel cervical spondylitic changes most severe at C4-5 and C5-6. Moderate bilateral facet arthropathy. Soft tissues: No prevertebral soft tissue swelling. IMPRESSION: Cervical spine without acute fracture or traumatic malalignment. Moderate- severe multilevel cervical spondylosis most severe at C4-5 and C5-6. Dictated by: Jason Gonzalez M.D. on 04/16/2025 at 16:11 Approved by: Jason Gonzalez M.D. on 04/16/2025 at 16:13
== END ==
PROVIDERS: Family Provider Student in an Organized Health Care Education/Training Program; PCP Family Medicine; Referring Provider Family Medicine; Visit Provider Family Medicine
DX: M54.2 Cervicalgia (principal); M47.812 Spondylosis without myelopathy or radiculopathy, cervical region
CPT/HCPCS: 72040

== ENCOUNTER 2025-05-09 12:48 | Emergency (ER) | payer OTHER, MEDICAID, SELFPAY ==
--- NOTE | 2025-05-09 12:50 | EKG_ITS ---
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
--- NOTE | 2025-05-09 12:50 | DI.RAD.S_ITS ---
PROCEDURE: XR CHEST 1V INDICATIONS: Chest Pain TECHNIQUE: One view of the chest was acquired. COMPARISON: [facility], CR, XR CHEST 1V, 03/06/2023, 8:54. [facility], CR, XR CHEST 1V, 03/12/2023, 12:20. FINDINGS: Surgical changes and devices: Cholecystectomy clips are seen. Lungs and pleura: On this semiupright portable chest examination, no large pneumothorax or large pleural effusions are seen. No focal infiltrates are seen. Low lung volumes are noted. This causes a crowded appearance to the lung markings and limits evaluation. There is stable elevation the right hemidiaphragm. Mediastinum: Mediastinal contours appear normal. Heart size is normal. There is dense calcification of the mitral valve annulus. Atherosclerotic calcification of the aortic arch is noted. Bones and chest wall: No suspicious bony lesions. Age-appropriate bony degenerative changes are seen. Overlying soft tissues appear unremarkable. IMPRESSION: Limited portable chest examination, without a significant cardiopulmonary abnormality identified. Postoperative and degenerative changes are seen. Dictated by: Major Soto M.D. on 05/09/2025 at 12:11 Approved by: Major Soto M.D. on 05/09/2025 at 12:12
[2025-05-09 12:56] VITALS: PULSE 139; RESP 21; O2SAT 96
[2025-05-09 12:59] VITALS: BP 159/95; PULSE 138; RESP 18; TEMP 36.7; O2SAT 96; BMI 20.7
[2025-05-09 13:00] VITALS: BP 155/67; PULSE 138; O2SAT 96
[2025-05-09 13:03] LABS: Add Manual Diff / Slide Review NO; Hematocrit 37.1 % (36-46); Hemoglobin 12.2 g/dL (12.0-16.0); Lymphocytes Absolute Auto 700 /uL (1100-4500); Mean Corpuscular HGB Conc 32.7 % (30-36); Mean Corpuscular Hemoglobin 26.6 PG (26-34); Mean Corpuscular Volume 81.4 fL (80-100); Platelet Count 219 X10^3/uL (150-400)
[2025-05-09 13:10] LABS: INR 1.2 (0.9-1.3); Prothrombin Time 13.3 SECONDS (9.4-12.5)
[2025-05-09 13:12] LABS: PTT Partial Thromboplastin Tim 31 SECONDS (25.1-36.5)
[2025-05-09 13:14] LABS: Alanine Aminotransferase 23 IU/L (<35); Albumin 4.6 g/dL (3.5-5.0); Albumin Globulin Ratio 1.2 (1.0-2.8); Alkaline Phosphatase 79 U/L (38-126); Blood Urea Nitrogen 19 mg/dL (7-17); Calcium 9.0 mg/dL (8.4-10.2); Carbon Dioxide 29 mmol/L (22-32); Chloride 103 mmol/L (98-107); Creatine Kinase 136 U/L (30-135); Estimated Glomerular Filt Rate > 60 mL/min (>60); Globulin 3.7 g/dL (1.7-4.1); Glucose 129 mg/dL (70-99); HEMOLYSIS < 15 (0-50); Lipase 39 U/L (23-300); Magnesium 1.8 mg/dL (1.6-2.3); Potassium 3.0 mmol/L (3.4-5.1); Sodium 141 mmol/L (137-145); Total Protein 8.3 g/dL (6.3-8.2)
--- NOTE | 2025-05-09 13:20 | ED.CHESTPAIN ---
HPI - Chest Pain General Chief Complaint: Chest Pain Stated Complaint: New onset AFIB Time Seen by Provider: 05/09/25 13:00 Source: patient and EMS Mode of arrival: EMS History of Present Illness HPI narrative: Patient brought in by ambulance from home. Neighbor is at bedside. Patient sees [facility] cardiology Dr. Villatoro for atrial fibrillation, recently diagnosed she states this year. She is not on any anticoagulation, no aspirin. Patient is not on any cardiac medications. Patient states this morning she felt off balance. No chest pain no palpitations. She was at physical therapy when she has some dizziness. This has resolved. EKG here atrial fibrillation with RVR. Rate 131. Related Data Home Medications ?Medication ?Instructions ?Recorded ?Confirmed Aller Clear 1 drp EYE-RIGHT DAILY 01/28/21 09/28/24 Alpha Lipoic Acid 1 tab PO DAILY 01/28/21 09/28/24 Maq. L-Threonate 1 tab PO DAILY 01/28/21 09/28/24 Vitamin D3 1 cap PO DAILY 01/28/21 09/28/24 biotin 1 mg capsule 1 mg PO DAILY 04/30/23 09/28/24 digestive enzymes 1 cap PO DAILY 04/30/23 09/28/24 thiamine HCl (vitamin B1) 100 mg 100 mg PO DAILY 04/30/23 09/28/24 tablet vitamin E (dl, acetate) 180 mg 180 mg PO DAILY 04/30/23 09/28/24 (400 unit) capsule Previous Rx's ?Medication ?Instructions ?Recorded DISABLED PARKING PERMIT #1 ea 02/08/24 Allergies Allergy/AdvReac Type Severity Reaction Status Date / Time No Known Drug Allergies Allergy Verified 05/09/25 12:59 Review of Systems Review of Systems Narrative: GENERAL: Negative chills, fatigue, malaise, fever, sweats. HEENT: Negative sinus pain, ear pain, sore throat RESPIRATORY: Negative dyspnea, cough CARDIOVASCULAR: Negative chest pain, palpitations GASTROINTESTINAL: Negative vomiting, nausea, abdominal pain : Negative dysuria, frequency, hematuria MUSCULOSKELETAL: Negative muscle or bony pain SKIN: Negative rash, skin lesions NEUROLOGIC: Negative weakness, numbness, positive dizziness ROS Unobtainable: All systems reviewed & are unremarkable except as noted in HPI and below Patient History Medical History Actinic keratoses Anorexia Anxiety Balance problem Bilateral leg numbness Bilateral lower extremity edema Cervical somatic dysfunction Chest pain on exertion Chronic bilateral low back pain without sciatica Chronic pain in left foot Chronic pain in left foot Constipation Cranial somatic dysfunction Gall bladder stones History of calculus of gallbladder Incomplete bladder emptying Insomnia Lower urinary tract symptoms (LUTS) Lumbar region somatic dysfunction Major depressive disorder Memory problem Microscopic hematuria Nausea and vomiting in adult patient Neck stiffness Orthopnea Osteoporosis Pelvic somatic dysfunction Physical deconditioning Physician orders for life-sustaining treatment (POLST) form indicates patient wish for [id number] status Postmenopausal atrophic vaginitis Right hip pain Right leg weakness RUQ abdominal tenderness Sacral region somatic dysfunction Seborrheic keratoses Segmental and somatic dysfunction of abdomen and other regions Segmental and somatic dysfunction of rib cage Short leg syndrome, left, acquired Somatic dysfunction of lower extremity Spell of dizziness Thoracic region somatic dysfunction Upper back pain, chronic Upper extremity somatic dysfunction Urge incontinence of urine Urinary retention Valgus deformity of right great toe Family History Mother Hyperlipidemia Hypertension Daughter Thyroid disease Kidney stones Social History marital status: number of children: 5 household members: none Smoking Status: Never smoker alcohol intake: current Smoking Status: Never smoker alcohol intake frequency: 0-2 drinks per day Alcohol type: hard liquor Exam Narrative Exam Narrative: GENERAL: in no distress, not toxic not dyspneic HEAD: Normocephalic. EYES: Pupils equal round ENT: Mucous membranes moist. NECK: Trachea midline. CARDIOVASCULAR: Tachycardia, irregularly irregular RESPIRATORY: Clear to auscultation. Breath sounds equal bilaterally. No wheezes, rales, or rhonchi. GASTROINTESTINAL: Abdomen soft, non-tender EXTREMITIES: No gross deformities. BACK: No flank tenderness. NEURO: AOx4. 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 Fast exam is negative. SKIN: Warm and dry PSYCH: Not anxious, is cooperative Initial Vital Signs Initial Vital Signs: Vital Signs Pulse Rate 139 H 05/09/25 12:56 Respiratory Rate 21 05/09/25 12:56 Pulse Oximetry 96 05/09/25 12:56 Course Orders Ordered: ED Orders 05/09/25 12:50 XR chest 1V Stat EKG-12 Lead Stat 05/09/25 12:55 Complete Blood Count AUTO DIFF Stat Comprehensive Metabolic Panel Stat Lipase Stat Magnesium Stat NT-proBNP (BNP-Adult 18+) Stat PTT Partial Thromboplastin Markus Stat Prothrombin Time INR Stat Troponin & CK Cardiac Panel Stat 05/09/25 13:48 EKG-12 Lead Stat Discontinued Medications Apixaban (Apixaban 5 Mg Tablet) 5 mg PO NOW ONE Stop: 05/09/25 13:29 Last Admin: 05/09/25 13:42 Dose: Not Given Documented By: SB Apixaban (Apixaban 5 Mg Tablet) 2.5 mg PO NOW ONE Stop: 05/09/25 13:46 Last Admin: 05/09/25 13:47 Dose: 2.5 mg Documented By: MAYUR Aspirin (Aspirin 81 Mg Chew Tab) 324 mg PO NOW ONE Stop: 05/09/25 12:51 Last Admin: 05/09/25 13:27 Dose: 162 mg Documented By: MAYUR Diltiazem HCl (Diltiazem Cd 120 Mg Cap) 120 mg PO NOW ONE Stop: 05/09/25 13:52 Last Admin: 05/09/25 14:08 Dose: 120 mg Documented By: MAYUR Vital Signs Vital signs: Vital Signs - 8 hr 05/09/25 12:56 05/09/25 12:59 05/09/25 13:00 Temperature 98.1 F Pulse Rate 139 H 138 H Respiratory Rate 21 18 Blood Pressure 159/95 H 155/67 H Pulse Oximetry 96 96 Oxygen Delivery Method Room Air 05/09/25 13:00 05/09/25 13:30 05/09/25 13:30 Temperature Pulse Rate 138 H 127 H Respiratory Rate 17 Blood Pressure 147/103 H Pulse Oximetry 96 95 Oxygen Delivery Method 05/09/25 14:00 05/09/25 14:00 Temperature Pulse Rate 87 Respiratory Rate 17 Blood Pressure 139/67 Pulse Oximetry 96 Oxygen Delivery Method MDM - Chest Pain Lab Data 05/09/25 12:55 05/09/25 12:55 Labs: Lab Results 05/09/25 Range/Units 12:55 WBC 4.9 (4.5-11.0) X10^3/uL RBC 4.56 (4.0-5.2) X10^6/uL Hgb 12.2 (12.0-16.0) g/dL Hct 37.1 (36-46) % MCV 81.4 (80-100) fL MCH 26.6 (26-34) PG MCHC 32.7 (30-36) % RDW 15.1 H (11.6-14.8) % Plt Count 219 (150-400) X10^3/uL Neut % (Auto) 73.3 (50-75) % Lymph % (Auto) 14.1 L (25-40) % [place] % (Auto) 9.7 (3-14) % Eos % (Auto) 2.1 (2-4) % Baso % (Auto) 0.8 (0-2) % Neut # (Auto) 3600 (2155-4079) /uL Lymph # (Auto) 700 L (1790-3784) /uL [place] # (Auto) 500 (0-900) /uL Eos # (Auto) 100 (0-450) /uL Baso # (Auto) 0 (0-100) /uL PT 13.3 H (9.4-12.5) SECONDS INR 1.2 (0.9-1.3) APTT 31 (25.1-36.5) SECONDS Sodium 141 (137-145) mmol/L Potassium 3.0 L (3.4-5.1) mmol/L Chloride 103 (98-107) mmol/L Carbon Dioxide 29 (22-32) mmol/L BUN 19 H (7-17) mg/dL Creatinine 0.67 (0.52-1.04) mg/dL Estimated GFR > 60 (>60) mL/min BUN/Creatinine Ratio 28.4 H (6-22) Glucose 129 H (70-99) mg/dL Calcium 9.0 (8.4-10.2) mg/dL Magnesium 1.8 (1.6-2.3) mg/dL Total Bilirubin 1.6 H (0.2-1.3) mg/dL AST 39 H (14-36) IU/L ALT 23 (<35) IU/L Alkaline Phosphatase 79 (38-126) U/L Total Creatine Kinase 136 H (30-135) U/L Troponin I 0.016 (0.01-0.034) ng/mL NT-Pro-B Natriuret Pep 3330 H (<450) pg/mL Total Protein 8.3 H (6.3-8.2) g/dL Albumin 4.6 (3.5-5.0) g/dL Globulin 3.7 (1.7-4.1) g/dL Albumin/Globulin Ratio 1.2 (1.0-2.8) Lipase 39 (23-300) U/L Imaging Data Chest x-ray: Radiologist's Impression: [address] [address] XRay Report Signed Patient: Sarah Winters MR#: [id number] : 1935 Acct:[id number] Age/Sex: 89 / F Date of Service: 05/09/25 Loc: ED Accession Number: [id number] Procedure: XR chest 1V Ordering Provider: Cuate Capps MD PROCEDURE: XR CHEST 1V INDICATIONS: Chest Pain TECHNIQUE: One view of the chest was acquired. COMPARISON: [facility], CR, XR CHEST 1V, 03/06/2023, 8:54. [facility], CR, XR CHEST 1V, 03/12/2023, 12:20. FINDINGS: Surgical changes and devices: Cholecystectomy clips are seen. Lungs and pleura: On this semiupright portable chest examination, no large pneumothorax or large pleural effusions are seen. No focal infiltrates are seen. Low lung volumes are noted. This causes a crowded appearance to the lung markings and limits evaluation. There is stable elevation the right hemidiaphragm. Mediastinum: Mediastinal contours appear normal. Heart size is normal. There is dense calcification of the mitral valve annulus. Atherosclerotic calcification of the aortic arch is noted. Bones and chest wall: No suspicious bony lesions. Age-appropriate bony degenerative changes are seen. Overlying soft tissues appear unremarkable. IMPRESSION: Limited portable chest examination, without a significant cardiopulmonary abnormality identified. Postoperative and degenerative changes are seen. Dictated by: Major Soto M.D. on 05/09/2025 at 12:11 Approved by: Major Soto M.D. on 05/09/2025 at 12:12 MDM Narrative Medical decision making narrative: Patient brought in by ambulance from home. Neighbor is at bedside. Patient sees [facility] cardiology Dr. Villatoro for atrial fibrillation, recently diagnosed she states this year. She is not on any anticoagulation, no aspirin. Patient is not on any cardiac medications. Patient states this morning she felt off balance. No chest pain no palpitations. She was at physical therapy when she has some dizziness. This has resolved. EKG here atrial fibrillation with RVR. Rate 131. MDM After history and exam, EKG CBC CMP troponin magnesium chest x-ray rate control cardiology consult Differential considered: Includes but not limited to atrial fibrillation atrial flutter Medical records reviewed: No recent visit for this complaint Lab Test results independently reviewed as above. Pertinent findings: WBC 4.9 hemoglobin 12.2 INR 1.2 sodium 141 potassium 3.0 BUN 19 creatinine 0.67 BNP 3330 troponin 0.016 Independently reviewed EKG atrial fibrillation with rapid ventricular response rate 131, repeat EKG at 1:56 p.m.. Normal sinus rhythm rate 87. Imaging studies independently reviewed: Chest x-ray no acute finding Consultations: 1:50 p.m.. I spoke with patient's hr consultant. Dr. Villatoro. Patient does have paroxysmal AFib. Okay to give dose of Eliquis here. Start diltiazem CD 120 mg daily. He has sent prescriptions to patient's pharmacy. Give 1st dose now. Patient can be discharged home. He will follow up with patient regarding Eliquis. Re-evaluations: 1:45 p.m.. Patient has converted spontaneously to sinus rhythm. Repeat EKG will be done. Patient remains asymptomatic neurologically. No slurred speech no facial droop. Fast exam is negative. Discussion: Appropriate discharge home. Patient has converted spontaneously. Cardiology service was contacted. Patient may be discharged home. Who will talk to patient about anticoagulation in the office. Start diltiazem CD 120 mg daily. Diagnosis: Atrial fibrillation Discharge Plan Departure Patient Disposition: Home Clinical Impression: Atrial fibrillation Qualifiers: Atrial fibrillation type: unspecified Qualified Code(s): I48.91 - Unspecified atrial fibrillation Instructions: DI for Atrial Fibrillation Activity Restrictions/Additional Instructions: Dr. Villatoro your hr consultant wants you to start on diltiazem, it has been sent to your pharmacy to continue tomorrow. First dose was given here today. You would like to talk to you regarding blood thinner medication with you in the office. Please call his office to make appointment tomorrow. Your laboratory studies and results are reassuring today. Return if worse if any questions or concerns. Prescriptions: No Action thiamine HCl (vitamin B1) 100 mg tablet 100 mg PO DAILY vitamin E (dl, acetate) 180 mg (400 unit) capsule 180 mg PO DAILY digestive enzymes Capsule 1 cap PO DAILY Rx Instructions: administer with food; swallow whole; do not crush/chew/dissolve/break/cut biotin 1 mg capsule 1 mg PO DAILY Vitamin D3 1 cap PO DAILY Alpha Lipoic Acid 600 mg capsule 1 tab PO DAILY Maq. L-Threonate 1 tab PO DAILY Aller Clear 1 drp EYE-RIGHT DAILY (DME) DISABLED PARKING PERMIT See Rx Instructions .ROUTE .MEDSUPPLY Qty: 1 0RF Rx Instructions: I FIND THIS PATIENT TO BE MEDICALLY DISABLED AND QUALIFIED FOR DISABLE PARKING INDICATED, AND SIGNED ON THE ACCOMPANYING [employer] APPLICATION FOR INDIVIDUALS Referrals: Sabrina Gaines MD [Primary Care Provider, Family Practice] Stand Alone Forms: Patient Portal/API
[2025-05-09 13:25] LABS: NT-proBNP (BNP-Adult 18+) 3330 pg/mL (<450); Troponin I 0.016 ng/mL (0.01-0.034)
[2025-05-09] MEDS: ASPIRIN 81 MG CHEW TAB 324 MG PO (13:27)
[2025-05-09 13:30] VITALS: BP 147/103; PULSE 127; RESP 17; O2SAT 95
[2025-05-09] MEDS: APIXABAN 5 MG TABLET 2.5 MG PO (13:47)
--- NOTE | 2025-05-09 13:47 | PC.NURSE ---
Patient heart rate now 86. Provider Jefry made aware. Verbal order for repeat EKG.
--- NOTE | 2025-05-09 13:48 | EKG_ITS ---
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
[2025-05-09 14:00] VITALS: BP 139/67; PULSE 87; RESP 17; O2SAT 96
== END 2025-05-09 14:26 | disposition home or self-care (01) ==
PROVIDERS: Emergency Provider Emergency Medicine; Family Provider Student in an Organized Health Care Education/Training Program; PCP Family Medicine
DX: I48.91 Unspecified atrial fibrillation (principal); R07.9 Chest pain, unspecified
CPT/HCPCS: 36415; 71045; 80053; 82550; 83690; 83735; 83880; 84484; 85025; 85610; 85730; 93005; 93010; 99284

== ENCOUNTER → 2025-06-18 09:18 | Outpatient (CLI) | payer OTHER, MEDICAID, SELFPAY ==
[2025-06-18 10:11] LABS: Alanine Aminotransferase 27 IU/L (<35); Albumin 4.5 g/dL (3.5-5.0); Albumin Globulin Ratio 1.3 (1.0-2.8); Alkaline Phosphatase 88 U/L (38-126); Globulin 3.4 g/dL (1.7-4.1); HEMOLYSIS < 15 (0-50); Total Protein 7.9 g/dL (6.3-8.2)
== END ==
PROVIDERS: Surgery; Family Provider Student in an Organized Health Care Education/Training Program; PCP Family Medicine; Referring Provider Family Medicine; Visit Provider Psychiatry & Neurology Psychiatry
DX: R10.11 Right upper quadrant pain (principal)
CPT/HCPCS: 36415; 80076

== ENCOUNTER 2025-06-19 07:48 | Emergency (ER) | payer OTHER, MEDICAID, SELFPAY ==
[2025-06-19 08:09] VITALS: BP 132/63; PULSE 66; RESP 15; TEMP 36.8; O2SAT 98; BMI 20.9
--- NOTE | 2025-06-19 08:28 | ED.LOWEXIN ---
HPI - Extremity Injury (Lower) General Chief Complaint: Extremity Problem,Nontraumatic Stated Complaint: Pain on left ankle bone 1 day ago Time Seen by Provider: 06/19/25 08:24 Source: patient Mode of arrival: Family Vehicle History of Present Illness HPI Narrative: Patient here for left medial ankle pain and bruising/discoloration. Denies any injury to this area. No previous surgery. Has had incidental blood work yesterday by general surgeon. Not related to today's complaints. Patient able to stand and bear weight without difficulty. There is ecchymotic skin to the medial malleolus. 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 Related Data Home Medications ?Medication ?Instructions ?Recorded ?Confirmed Alpha Lipoic Acid 1 tab PO DAILY 01/28/21 06/18/25 Maq. L-Threonate 1 tab PO DAILY 01/28/21 06/18/25 Vitamin D3 1 cap PO DAILY 01/28/21 06/18/25 biotin 1 mg capsule 1 mg PO DAILY 04/30/23 06/18/25 digestive enzymes 1 cap PO DAILY 04/30/23 06/18/25 thiamine HCl (vitamin B1) 100 mg 100 mg PO DAILY 04/30/23 06/18/25 tablet diltiazem HCl 90 mg 90 mg PO ONCE 06/18/25 06/18/25 capsule,extended release 12 hr Previous Rx's ?Medication ?Instructions ?Recorded DISABLED PARKING PERMIT #1 ea 02/08/24 Allergies Allergy/AdvReac Type Severity Reaction Status Date / Time No Known Drug Allergies Allergy Verified 06/19/25 08:08 Review of Systems Review of Systems Narrative: GENERAL: Negative chills, fatigue, malaise, fever, sweats. HEENT: Negative sinus pain, ear pain, sore throat RESPIRATORY: Negative dyspnea, cough CARDIOVASCULAR: Negative chest pain, palpitations GASTROINTESTINAL: Negative vomiting, nausea, abdominal pain : Negative dysuria, frequency, hematuria MUSCULOSKELETAL: + muscle or bony pain SKIN: Negative rash, skin lesions NEUROLOGIC: Negative weakness, numbness ROS Unobtainable: All systems reviewed & are unremarkable except as noted in HPI and below Patient History Medical History Actinic keratoses Anorexia Anxiety Balance problem Bilateral leg numbness Bilateral lower extremity edema Cervical somatic dysfunction Chest pain on exertion Chronic bilateral low back pain without sciatica Chronic pain in left foot Chronic pain in left foot Constipation Cranial somatic dysfunction Gall bladder stones History of calculus of gallbladder Incomplete bladder emptying Insomnia Lower urinary tract symptoms (LUTS) Lumbar region somatic dysfunction Major depressive disorder Memory problem Microscopic hematuria Nausea and vomiting in adult patient Neck stiffness Orthopnea Osteoporosis Pelvic somatic dysfunction Physical deconditioning Physician orders for life-sustaining treatment (POLST) form indicates patient wish for [id number] status Postmenopausal atrophic vaginitis Right hip pain Right leg weakness RUQ abdominal tenderness Sacral region somatic dysfunction Seborrheic keratoses Segmental and somatic dysfunction of abdomen and other regions Segmental and somatic dysfunction of rib cage Short leg syndrome, left, acquired Somatic dysfunction of lower extremity Spell of dizziness Thoracic region somatic dysfunction Upper back pain, chronic Upper extremity somatic dysfunction Urge incontinence of urine Urinary retention Valgus deformity of right great toe Family History Mother Hyperlipidemia Hypertension Daughter Thyroid disease Kidney stones Social History marital status: number of children: 5 household members: none Smoking Status: Never smoker alcohol intake: current Smoking Status: Never smoker alcohol intake frequency: 0-2 drinks per day Alcohol type: hard liquor Exam Narrative Exam Narrative: GENERAL: in no distress, not toxic not dyspneic HEAD: Normocephalic. EYES: Pupils equal round EXTREMITIES: No gross deformities. Examination left lower extremity. There is bruising to the medial malleolus. Foot warm soft pink brisk cap refills light touch active foot and toes. Able flex and extend the ankle without difficulty. Able to stand and bear weight. No antalgic gait. Calf soft nontender no palpable cords. Negative Rose test negative Homans test. No cellulitis erythema of the medial malleolus heal or lower extremity/calf NEURO: AOx4. Clear speech SKIN: Warm and dry PSYCH: Not anxious, is cooperative Initial Vital Signs Initial Vital Signs: Vital Signs Temperature 98.2 F 06/19/25 08:09 Pulse Rate 66 06/19/25 08:09 Respiratory Rate 15 06/19/25 08:09 Blood Pressure 132/63 06/19/25 08:09 Pulse Oximetry 98 06/19/25 08:09 Oxygen Delivery Method Room Air 06/19/25 08:09 Course Orders Ordered: ED Orders 06/19/25 08:30 perip venous low extrem lt Stat XR ankle LT min 3V Stat 06/19/25 09:05 CBC Auto Diff [Complete Blood Count AUTO DIFF] Stat CMP [Comprehensive Metabolic Panel] Stat PT [Prothrombin Time INR] Stat PTT Partial Thromboplastin Markus Stat Vital Signs Vital signs: Vital Signs - 8 hr 06/19/25 08:09 06/19/25 10:33 Temperature 98.2 F Pulse Rate 66 59 L Respiratory Rate 15 12 Blood Pressure 132/63 130/88 Pulse Oximetry 98 97 Oxygen Delivery Method Room Air Room Air MDM - Extremity Injury (Lower) Lab Data 06/19/25 09:05 06/19/25 09:05 Labs: Lab Results 06/19/25 Range/Units 09:05 WBC 3.4 L (4.5-11.0) X10^3/uL RBC 4.50 (4.0-5.2) X10^6/uL Hgb 11.8 L (12.0-16.0) g/dL Hct 36.0 (36-46) % MCV 80.0 (80-100) fL MCH 26.3 (26-34) PG MCHC 32.9 (30-36) % RDW 15.3 H (11.6-14.8) % Plt Count 219 (150-400) X10^3/uL Neut % (Auto) 62.0 (50-75) % Lymph % (Auto) 22.7 L (25-40) % [place] % (Auto) 12.0 (3-14) % Eos % (Auto) 2.5 (2-4) % Baso % (Auto) 0.8 (0-2) % Neut # (Auto) 2100 (5161-0825) /uL Lymph # (Auto) 800 L (4730-7476) /uL [place] # (Auto) 400 (0-900) /uL Eos # (Auto) 100 (0-450) /uL Baso # (Auto) 0 (0-100) /uL PT 12.2 (9.4-12.5) SECONDS INR 1.1 (0.9-1.3) APTT 31 (25.1-36.5) SECONDS Sodium 140 (137-145) mmol/L Potassium 4.2 (3.4-5.1) mmol/L Chloride 105 (98-107) mmol/L Carbon Dioxide 26 (22-32) mmol/L BUN 23 H (7-17) mg/dL Creatinine 0.91 (0.52-1.04) mg/dL Estimated GFR > 60 (>60) mL/min BUN/Creatinine Ratio 25.3 H (6-22) Glucose 101 H (70-99) mg/dL Calcium 9.5 (8.4-10.2) mg/dL Total Bilirubin 1.1 (0.2-1.3) mg/dL AST 39 H (14-36) IU/L ALT 27 (<35) IU/L Alkaline Phosphatase 80 (38-126) U/L Total Protein 8.6 H (6.3-8.2) g/dL Albumin 4.8 (3.5-5.0) g/dL Globulin 3.8 (1.7-4.1) g/dL Albumin/Globulin Ratio 1.3 (1.0-2.8) Imaging Data Extremity x-ray #1: Radiologist's Impression: [address] [address] XRay Report Signed Patient: Sarah Winters MR#: [id number] : 1935 Acct:[id number] Age/Sex: 89 / F Date of Service: 06/19/25 Loc: ED Accession Number: [id number] Procedure: XR ankle LT min 3V Ordering Provider: Cuate Capps MD PROCEDURE: XR ANKLE LT MIN 3V INDICATIONS: Pain/swelling TECHNIQUE: 3 views of the ankle were acquired. COMPARISON: None. FINDINGS: Bones: No fractures or dislocations. Ankle mortise is normally aligned. No suspicious bony lesions. Soft tissues: No tibiotalar joint effusion. Achilles tendon appears normal. IMPRESSION: No acute bony abnormality or significant effusion. Dictated by: Kolby Ordaz M.D. on 06/19/2025 at 9:07 Approved by: Kolby Ordaz M.D. on 06/19/2025 at 9:07 US - DVT: Radiologist's Impression: [address] [address] Ultrasound Report Signed Patient: Sarah Winters MR#: [id number] : 1935 Acct:[id number] Age/Sex: 89 / F Date of Service: 06/19/25 Loc: ED Accession Number: [id number] Procedure: periph venous low extrem lt Ordering Provider: Cuate Capps MD PROCEDURE: PERIPH VENOUS LOW EXTREM LT INDICATIONS: Pain/swelling TECHNIQUE: Real-time imaging, as well as color and pulse Doppler interrogation, were performed of the lower extremity deep veins from the inguinal ligament to the popliteal fossa, with documentation of the visualized calf veins. COMPARISON: None. FINDINGS: The common femoral, femoral, popliteal, and the visualized calf veins are normally compressible, and free of intraluminal thrombus. Color and pulse Doppler demonstrate normal phasic intraluminal flow. There is normal augmentation response to distal compression maneuver. IMPRESSION: No findings of lower extremity deep venous thrombosis. Dictated by: Kolby Ordaz M.D. on 06/19/2025 at 9:01 Approved by: Kolby Ordaz M.D. on 06/19/2025 at 9:02 [facility] Narrative Medical decision making narrative: Patient here for left medial ankle pain and bruising/discoloration. Denies any injury to this area. No previous surgery. Has had incidental blood work yesterday by general surgeon. Not related to today's complaints. Patient able to stand and bear weight without difficulty. There is ecchymotic skin to the medial malleolus. 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 MDM After history and exam, x-ray left ankle ultrasound left leg CBC CMP to be PT INR Differential considered: Includes but not limited to ankle strain sprain fracture DVT SVT varicose vein cellulitis Medical records reviewed: No recent visit for this complaint Lab Test results independently reviewed as above. Pertinent findings: WBC 3.4 hemoglobin 11.8 platelets 219 INR 1.1 sodium 140 potassium 4.2 Imaging studies independently reviewed: X-ray left ankle no acute finding. Ultrasound left leg no DVT Consultations: None indicated at this time Re-evaluations: 10:24 a.m.. Reviewed results with patient. Patient in no distress. She is relieved there is no blood clot. Return precautions reviewed. Reviewed they are possibly varicose veins or vein damage causing the bruising. She desires discharge home. Discussion: Appropriate for discharge home. Exam is reassuring. Return precautions reviewed with patient. Not toxic at discharge. Diagnosis: Ankle pain Discharge Plan Departure Patient Disposition: Home Clinical Impression: Acute ankle pain Qualifiers: Laterality: left Qualified Code(s): M25.572 - Pain in left ankle and joints of left foot Instructions: DI for Arthralgia Activity Restrictions/Additional Instructions: Your blood work and x-ray of your ankle ultrasound your leg are reassuring. No blood clot was seen. It could be possible the veins around the ankle in the skin are damaged. This can cause bruising. Please see your family doctor this week for re-evaluation. Continue home medications. Return if worse if any questions or concerns. No new prescriptions are indicated. Prescriptions: No Action thiamine HCl (vitamin B1) 100 mg tablet 100 mg PO DAILY digestive enzymes Capsule 1 cap PO DAILY Rx Instructions: administer with food; swallow whole; do not crush/chew/dissolve/break/cut biotin 1 mg capsule 1 mg PO DAILY Vitamin D3 1 cap PO DAILY Alpha Lipoic Acid 600 mg capsule 1 tab PO DAILY Maq. L-Threonate 1 tab PO DAILY (DME) DISABLED PARKING PERMIT See Rx Instructions .ROUTE .MEDSULY Qty: 1 0RF Rx Instructions: I FIND THIS PATIENT TO BE MEDICALLY DISABLED AND QUALIFIED FOR DISABLE PARKING INDICATED, AND SIGNED ON THE ACCOMPANYING myhomemove APPLICATION FOR INDIVIDUALS diltiazem HCl 90 mg capsule,extended release 12 hr 90 mg PO ONCE Referrals: Sabrina Gaines MD [Primary Care Provider, Family Practice] Stand Alone Forms: Patient Portal/API
[2025-06-19 09:18] LABS: Add Manual Diff / Slide Review NO; Hematocrit 36.0 % (36-46); Hemoglobin 11.8 g/dL (12.0-16.0); Lymphocytes Absolute Auto 800 /uL (1100-4500); Mean Corpuscular HGB Conc 32.9 % (30-36); Mean Corpuscular Hemoglobin 26.3 PG (26-34); Mean Corpuscular Volume 80.0 fL (80-100); Platelet Count 219 X10^3/uL (150-400)
[2025-06-19 09:26] LABS: INR 1.1 (0.9-1.3); Prothrombin Time 12.2 SECONDS (9.4-12.5)
[2025-06-19 09:29] LABS: PTT Partial Thromboplastin Tim 31 SECONDS (25.1-36.5)
[2025-06-19 09:31] LABS: Alanine Aminotransferase 27 IU/L (<35); Albumin 4.8 g/dL (3.5-5.0); Albumin Globulin Ratio 1.3 (1.0-2.8); Alkaline Phosphatase 80 U/L (38-126); Blood Urea Nitrogen 23 mg/dL (7-17); Calcium 9.5 mg/dL (8.4-10.2); Carbon Dioxide 26 mmol/L (22-32); Chloride 105 mmol/L (98-107); Estimated Glomerular Filt Rate > 60 mL/min (>60); Globulin 3.8 g/dL (1.7-4.1); Glucose 101 mg/dL (70-99); HEMOLYSIS < 15 (0-50); Potassium 4.2 mmol/L (3.4-5.1); Sodium 140 mmol/L (137-145); Total Protein 8.6 g/dL (6.3-8.2)
[2025-06-19 10:33] VITALS: BP 130/88; PULSE 59; RESP 12; O2SAT 97
== END 2025-06-19 10:41 | disposition home or self-care (01) ==
PROVIDERS: Emergency Provider Emergency Medicine; Family Provider Student in an Organized Health Care Education/Training Program; PCP Family Medicine
DX: M25.572 Pain in left ankle and joints of left foot (principal)
CPT/HCPCS: 36415; 73610; 80053; 85025; 85610; 85730; 93971; 99284

== ENCOUNTER → 2025-06-25 07:26 | Outpatient (CLI) | payer OTHER, MEDICAID, SELFPAY ==
--- NOTE | 2025-06-25 07:28 | DI.US.S_ITS ---
PROCEDURE: US ABDOMEN LIMITED INDICATIONS: RUQ PAIN TECHNIQUE: Real-time focused scanning was performed of the abdomen, with image documentation. COMPARISON: [facility], US, US ABDOMEN LIMITED, 09/14/2024, 8:57. FINDINGS: Liver measures 14 cm. No discrete lesion identified. The left lobe of the liver was not well assessed sonographically. Gallbladder is absent. CBD measures 1 cm. IMPRESSION: Mildly ectatic CBD at 1 cm, possibly related to post cholecystectomy state. Correlate LFT pattern. Left lobe of the liver was not well seen by ultrasound. Dictated by: Yamil Muhammad M.D. on 06/25/2025 at 10:21 Approved by: Yamil Muhammad M.D. on 06/25/2025 at 10:22
== END ==
LOC: US 07:27
PROVIDERS: Family Provider Student in an Organized Health Care Education/Training Program; PCP Family Medicine; Referring Provider Family Medicine; Visit Provider Surgery
DX: K83.8 Other specified diseases of biliary tract (principal); Z90.49 Acquired absence of other specified parts of digestive tract
CPT/HCPCS: 76705

== ENCOUNTER → 2025-07-10 06:46 | Outpatient (CLI) | payer OTHER, MEDICAID, SELFPAY ==
--- NOTE | 2025-07-10 06:48 | DI.MRI.S_ITS ---
PROCEDURE: MR AB PANCREATIC/MRCP PROTOCOL INDICATIONS: RUQ pain after choley, ectatic CBD on u/s, jaundice TECHNIQUE: Coronal HASTE through the abdomen, axial 2-D FLASH in- and [id number], and breath-hold T2 FSE with fat saturation through the biliary system and pancreas. Oblique coronal and axial thin-slice HASTE, radial thick-slab HASTE centered on the extrahepatic bile ducts. Intravenous secretin: Not requested. COMPARISON: [facility], CR, XR CHOLANGIOGRAM OPERATIVE, 09/15/2024, 17:22. [facility], CT, CT ABDOMEN W CON, 03/29/2025, 9:31. [facility], US, US ABDOMEN LIMITED, 06/25/2025, 7:43. FINDINGS: Image quality: Diagnostic. Gallbladder: Absent. Biliary ducts: Extrahepatic biliary dilation measuring up to 1.1 centimeter. Smooth tapering of the distal common bile duct (series 10, image 16). Pancreas: No ductal dilation. OTHER: Lung bases: Unremarkable. Liver: No solid mass. Spleen: Size is within normal limits. Adrenal Glands: No adrenal nodules. Kidneys and Ureters: No hydronephrosis. No solid mass. Complex cystic lesion with a solid nodularity along the superior pole of the left kidney measuring 1.6 x 1.1 centimeter. Stomach and Bowel: Normal colonic caliber, without significant wall thickening. Duodenal diverticulum extending between the IVC and pancreatic head, terminating adjacent to the ampulla (series 6, image 25). This measures approximately 4.5 x 2.2 centimeter. Peritoneum: No abnormal intraperitoneal fluid. No free air. Ventral Wall: No hernia. Abdominal Nodes: No retroperitoneal or mesenteric adenopathy by size criteria. Vessels: Aorta and inferior vena cava are normal in size. Bones: No aggressive osseous abnormality. IMPRESSION: Mild intrahepatic and extrahepatic biliary dilation status post cholecystectomy. Given patient age, findings could be age related and due to reservoir effect. Adjacent duodenal diverticulum may have some obstructive properties, however. 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 Recommend urology referral. Dictated by: Taj Vaughan M.D. on 07/10/2025 at 13:11 Approved by: Taj Vaughan M.D. on 07/10/2025 at 13:31
== END ==
PROVIDERS: Family Provider Student in an Organized Health Care Education/Training Program; PCP Family Medicine; Referring Provider Surgery; Visit Provider Surgery
DX: K83.8 Other specified diseases of biliary tract (principal); N28.1 Cyst of kidney, acquired; K57.10 Diverticulosis of small intestine without perforation or abscess without bleeding; R10.11 Right upper quadrant pain; Z90.49 Acquired absence of other specified parts of digestive tract
CPT/HCPCS: 74183; A9579